=== PATIENT | female | born 1975 | race Caucasian/White ===

== ENCOUNTER 2016-08-02 09:00 | Emergency (ER) | payer BC ==
[2016-08-02 09:13] VITALS: BP 140/80; BMI 38.4
--- NOTE | 2016-08-02 10:18 | DR.EXTPAIN ---
HPI - Time seen Time seen: 10:16 - PCP Primary Care Physician: THOMAS EDWARDS - HPI Comment HPI Comment: no trauma - Complaint/Symptoms Chief Complaint:: RIGHT FOOT SWOLLEN Self Treatment fo Chief Complaint: NONE - Nurses notes reviewed Nurses Notes Review: Yes - Source History Provided: Patient - Mode of arrival Mode of Arrival: Ambulatory - Timing Onset of Chief Complaint: 07/31/16 - Context History of: None - Associated signs and symptoms Associated Signs and Symptoms: Pain, Swelling PMH - PMH Past Medical History: Yes Past Medical History: Diabetes Past Surgical History: Yes Surgical History: , Hysterectomy, Ortho Surgery Past Surgical History Comment: BACK AND KNEE, - Family History History of Family Medical Conditions: Yes Family Medical History: Diabetes Mellitus, Hypertension - Social History Alcohol Use: None Do you use any recreational Drugs:: No Lives With: Family Lives Where: Home - infectious screening In the last 2 months have you had wt loss of >10#?: YES Have you had fever, night sweats or hemotysis?: No Have you traveled outside the country in the last 6 months?: No Isolation: Standard ROS - Review of Systems Constitutional: No Symptoms Reported Eyes: No Symptoms Reported ENTM: No Symptoms Reported Respiratoy: No Symptoms Reported Cardiovascular: No Symptoms Reported Gastrointestinal/Abdominal: No Symptoms Reported Genitourinary: No Symptoms Reported Neurological: No Symptoms Reported Musculoskeletal: Foot (swelling) Integumentary: No Symptoms Reported Hematologic/Lymphatic: No Symptoms Reported Endocrine: No Symptoms Reported Psychiatric: No Symptoms Reported PE - Vital Signs Vitals: Temperature 98.3 F Pulse Rate 95 Respiratory Rate 14 Blood Pressure [Left Arm] 121/75 Blood Pressure [Right Arm] 116/71 Blood Pressure 140/80 O2 Sat by Pulse Oximetry 97 - General Limitations: No Limitations General Appearance: Alert, In No Apparent Distress - Head Head Exam: Normal Inspection - Eyes Eye exam: EOMI. negative: Scleral Icterus, Conjunctival Injection - ENT ENT Exam: Normal Exam, Normal Oropharynx - Neck Neck Exam: Normal Inspection, Full ROM, Trachea Midline - Respiratory Respiratory Exam: negative: Accessory Muscle Use, Prolonged Expiratory Phase - Extremities Extremities Exam: Full ROM, Tenderness (right foot), Edema (mild). negative: Normal Inspection - Lower Extremities Foot/Toe Exam: Tenderness, Swelling Neurovascular/Tendon Exam: Normal Capillary Refill. negative: Pulse Deficit, Motor Deficit - Neurological Neurological Exam: Alert, Oriented X3, CN II-XII Intact - Psychiatric Psychiatric Exam: Normal Mood - Skin Skin Exam: Intact, Normal Color ROR - Labs Reviewed Result Diagrams: 08/02/16 10:20 Laboratory: WBC 6.8 X10^3/uL (3.6-10.0) 08/02/16 10:20 RBC 4.57 X10^6/uL (3.5-5.4) 08/02/16 10:20 Hgb 13.0 g/dL (12.0-16.0) 08/02/16 10:20 Hct 39.0 % (36.0-47.0) 08/02/16 10:20 MCV 85.3 fL (80.0-100.0) 08/02/16 10:20 MCH 28.4 pg (27.0-34.0) 08/02/16 10:20 MCHC 33.3 g/dL (33.0-35.0) 08/02/16 10:20 RDW 14.4 % (11.6-16.5) 08/02/16 10:20 Plt Count 200 X10^3/uL (150.0-450.0) 08/02/16 10:20 MPV 9.1 fL (7.4-11.0) 08/02/16 10:20 Neut % 57.0 % (42.0-75.0) 08/02/16 10:20 Lymph % 32.9 % (21.0-51.0) 08/02/16 10:20 [place] % 5.2 % (0.0-13.0) 08/02/16 10:20 Eos % 3.9 % (0.9-2.9) H 08/02/16 10:20 Baso % 1.0 % (0.2-1.0) 08/02/16 10:20 Neut # 3.9 x10^3/uL (2.2-4.8) 08/02/16 10:20 Lymph # 2.2 X10^3/uL (1.3-2.9) 08/02/16 10:20 [place] # 0.4 x10^3/uL (0.3-0.8) 08/02/16 10:20 Eos # 0.3 x10^3/uL (0.0-0.2) H 08/02/16 10:20 Baso # 0.1 X10^3/uL (0.0-0.1) 08/02/16 10:20 Absolute Nucleated RBC 0.0 /100WBC 08/02/16 10:20 Uric Acid 4.4 mg/dL (2.6-6.0) 08/02/16 10:20 - Diagnosis Discharge Problem: Foot swelling - Discharge Plan Condition: Stable Prescriptions: Aspirin EC [ECOTRIN 325 MG *] 325 mg PO DAILY #30 tab - Follow ups/Referrals Follow ups/Referrals: JESSY EDWARDS [Primary Care Provider] - 3 days - Instructions
[2016-08-02 10:39] LABS: BASOPHILS # (AUTO) 0.1 X10^3/uL (0.0-0.1); EOSINOPHILS # (AUTO) 0.3 x10^3/uL (0.0-0.2); EOSINOPHILS % (AUTO) 3.9 % (0.9-2.9); LYMPHOCYTES # (AUTO) 2.2 X10^3/uL (1.3-2.9); LYMPHOCYTES % (AUTO) 32.9 % (21.0-51.0); MEAN CORPUSCULAR HEMOGLOBIN 28.4 pg (27.0-34.0); MEAN CORPUSCULAR HGB CONC 33.3 g/dL (33.0-35.0); MEAN CORPUSCULAR VOLUME 85.3 fL (80.0-100.0); MEAN PLATELET VOLUME 9.1 fL (7.4-11.0); MONOCYTES # (AUTO) 0.4 x10^3/uL (0.3-0.8); MONOCYTES % (AUTO) 5.2 % (0.0-13.0); NEUTROPHILS # (AUTO) 3.9 x10^3/uL (2.2-4.8); PLATELET COUNT 200 X10^3/uL (150.0-450.0); RED BLOOD COUNT 4.57 X10^6/uL (3.5-5.4); RED CELL DISTRIBUTION WIDTH 14.4 % (11.6-16.5); WHITE BLOOD COUNT 6.8 X10^3/uL (3.6-10.0)
== END 2016-08-02 11:30 | disposition home or self-care (01) ==
LOC: ER 09:21
DX: R22.41 Localized swelling, mass and lump, right lower limb (principal)
CPT/HCPCS: 36415; 84550; 85025; 99282

== ENCOUNTER → 2016-10-12 | Outpatient (CLI) | payer BC ==
--- NOTE | 2016-10-12 15:39 | RAD ---
HISTORY: Right hip pain that radiates down the leg. Study: Two-view right hip Comparison: CT abdomen and pelvis done September 02, 2015 Findings: There is apparent disc space narrowing L4-5 level. A single frontal view of the pelvis demonstrates the pelvic ring to be intact. No evidence for acut e cortical disruption or dislocation of the hip can be observed. Frog leg views of the hip fails to demonstrate evidence for fracture or significant joint abnormality. Impression: Normal right hip. Apparent disc space narrowing at L4-5. Reported By:
--- NOTE | 2016-10-12 15:42 | RAD ---
HISTORY: Lower extremity pain. Right hip pain that radiates down legs. Study: Five view lumbar spine Comparison: Lumbar spine series done March 12, 2014 and MRI scan of the lumbar spine done March 31, 2014. Findings: Fracture or subluxation is seen. There is multilevel spondylosis. Degenerative disc disease is again seen with vacuum discs at L4-5 and L5-S1. The disk space at L2-3 is also narrowed. Pedicles, transv erse processes and posterior elements are intact IMPRESSION: Multilevel degenerative disc disease, stable from prior studies. No fracture or subluxation is seen. Reported By:
== END ==
LOC: RAD 14:16
PROVIDERS: ATTEND Nurse Practitioner Family
DX: M79.604 Pain in right leg (principal); M51.36 Other intervertebral disc degeneration, lumbar region
CPT/HCPCS: 72110; 73501

== ENCOUNTER → 2016-10-31 | Outpatient (CLI) | payer BC | LOC: RT 13:45 | PROVIDERS: ATTEND Nurse Practitioner Family | DX: M79.604 Pain in right leg (principal) | CPT/HCPCS: 95909 ==

== ENCOUNTER → 2016-11-14 | Outpatient (CLI) | payer BC ==
--- NOTE | 2016-11-14 11:57 | MRI ---
HISTORY: Back pain, right radiculopathy Study: MRI lumbar spine with and without contrast Comparison: March 31, 2014 Technique: Multiplanar multi-sequence pre and post-contrast MRI of the lumbar spine was obtained. S agittal T1, sagittal T2, and stir weighted images, axial T1, and axial T2 images were obtained. Sagi ttal and axial post-contrast T1 weighted images were obtained. Findings: The lumbar spine demonstrates normal alignment with the expected signal characteristics of the bone marrow. No marrow enhancement or abnormal enhancing lesions are identified. The conus of the cord te rminates normally. T12 -- L1: No evidence for compressive disc disease. The neural foramina are patent. The joints are normal. L1 -- L2: No evidence for compressive disc disease. The neural foramina are patent. The joints are n ormal. L2 -- L3: Broad-based disk bulging effaces the thecal sac and contributes along with mild facet arth ropathy to mild lateral recess narrowing bilaterally. L3 -- L4: Broad-based disk bulging and an associated small central disc protrusion are present. Ther e is mild thecal sac effacement. However the neural foramina are patent and the joints are normal. L4 -- L5: There is a very large compressive central and rightward disc protrusion which contributes along with ligamentous hypertrophy and facet arthropathy to a severe spinal stenosis. The disk protr usion causes posterior displacement of the right S1 nerve root and is likely the cause of the patien t's right radiculopathy. Lateral recess and foraminal narrowing are present bilaterally more promine nt on the right than the left. L5 -- S1: There is disc degeneration with a focal central and leftward disc protrusion which effaces the thecal sac and causes posterior displacement of the left S1 nerve root. It also contributes to lateral recess and foraminal narrowing on the left. The right neural foramen is patent. The joints a re normal. IMPRESSION: As above Reported By:
== END ==
LOC: RAD 10:23
PROVIDERS: ATTEND Nurse Practitioner Family
DX: M79.604 Pain in right leg (principal); M51.26 Other intervertebral disc displacement, lumbar region
CPT/HCPCS: 72149

== ENCOUNTER → 2016-12-16 | Outpatient (CLI) | payer BC ==
[2016-12-16 09:45] LABS: ALANINE AMINOTRANSFERASE 32 Units/L (12-78); ALBUMIN 3.7 g/dL (3.4-5.0); ALKALINE PHOSPHATASE 42 Units/L (46-116); ASPARTATE AMINO TRANSFERASE 15 Units/L (15-37); BLOOD UREA NITROGEN 15 mg/dL (7-18); CALCIUM 8.4 mg/dL (8.5-10.1); CARBON DIOXIDE 26.7 mmol/L (21-32); CHLORIDE 107 mmol/L (98-107); CHOL/HDL RATIO 5.1 (0.0-5.0); CHOLESTEROL 133 mg/dL (0-200); COR NA(FOR HYPERGLY) 145 mmol/L (136-145); CREATININE 0.63 mg/dL (0.55-1.02); GLUCOSE 244 mg/dL (65-99); HDL CHOLESTEROL 26 mg/dL (40-60); SODIUM 142 mmol/L (136-145); TOTAL PROTEIN 6.9 g/dL (6.4-8.2); TRIGLYCERIDES 300 mg/dL (0-150); eGFR BLACK RACES > 60 (>60); eGFR NON BLACK RACES > 60 (>60)
[2016-12-16 09:46] LABS: BASOPHILS % (AUTO) 0.6 % (0.2-1.0); EOSINOPHILS # (AUTO) 0.1 x10^3/uL (0.0-0.2); EOSINOPHILS % (AUTO) 2.2 % (0.9-2.9); HEMATOCRIT 38.4 % (36.0-47.0); HEMOGLOBIN 12.9 g/dL (12.0-16.0); LYMPHOCYTES # (AUTO) 2.3 X10^3/uL (1.3-2.9); LYMPHOCYTES % (AUTO) 39.9 % (21.0-51.0); MEAN CORPUSCULAR HEMOGLOBIN 28.6 pg (27.0-34.0); MEAN CORPUSCULAR HGB CONC 33.7 g/dL (33.0-35.0); MEAN PLATELET VOLUME 9.5 fL (7.4-11.0); MONOCYTES # (AUTO) 0.4 x10^3/uL (0.3-0.8); MONOCYTES % (AUTO) 6.5 % (0.0-13.0); NEUTROPHILS # (AUTO) 2.9 x10^3/uL (2.2-4.8); NEUTROPHILS % (AUTO) 50.8 % (42.0-75.0); PLATELET COUNT 206 X10^3/uL (150.0-450.0); RED BLOOD COUNT 4.52 X10^6/uL (3.5-5.4); RED CELL DISTRIBUTION WIDTH 14.2 % (11.6-16.5); WHITE BLOOD COUNT 5.8 X10^3/uL (3.6-10.0)
[2016-12-16 10:26] LABS: HEMOGLOBIN A1C 8.8 % (4.5-6.2)
[2016-12-16 10:43] LABS: MICROALBUMIN,URINE 20.8 mg/L
[2016-12-16 10:45] LABS: CREATININE,URINE 133.87 mg/dL (29-226)
== END | disposition home or self-care (01) | DRG 642 ==
LOC: LAB 08:52
PROVIDERS: ATTEND Nurse Practitioner Family
DX: E78.4 Other hyperlipidemia (principal); I10 Essential (primary) hypertension; E11.40 Type 2 diabetes mellitus with diabetic neuropathy, unspecified; E11.65 Type 2 diabetes mellitus with hyperglycemia
CPT/HCPCS: 36415; 80053; 80061; 82043; 83036; 85025

== ENCOUNTER 2017-06-16 04:25 | Emergency (ER) | payer BC ==
[2017-06-16 04:35] VITALS: BP 117/69; BMI 37.2
[2017-06-16] MEDS ORDERED: TORADOL 30 MG VIAL IVP STA (05:00)
[2017-06-16] MEDS ORDERED: NS 1000 ML 1,000 ML IV SCH (05:00)
[2017-06-16] MEDS ORDERED: NS 1000 ML 1,000 ML ONE ×2 (05:01→07:40)
[2017-06-16] MEDS ORDERED: TYLENOL 500 MG TAB EXTRA STRENGTH PO STA (05:01)
[2017-06-16] MEDS ORDERED: TORADOL 30 MG VIAL ONE (05:04)
[2017-06-16] MEDS ORDERED: TYLENOL 500 MG TAB EXTRA STRENGTH PO ONE (05:05)
--- NOTE | 2017-06-16 05:05 | DR.GENAD ---
HPI - PCP Primary Care Physician: Juan NOVA - Complaint/Symptoms Chief Complaint Doctors Comments: Patient is complaining of a cold, cough, fever , aching all over for the past three days getting worst tonight. States she has been taking Thera Flu without improvement. Stats she is a diabetic and her glucose has been running high. she is taking insulin and pills. She denies chest pain but has been having SOB at times. She denies swelling of legs or feet. States she is a patient of Shira Nova. She denies dysuria or hematuria. Chief Complaint:: BODY ACHES, DIZZY, HURT ALL OVER, FEEL LIKE I HAVE A FEVER, CAN'T GET ENOUGH TO DRINK. NAUSEATED Self Treatment fo Chief Complaint: THERA-FLU LAST DOSE 0030AM - Nurses notes reviewed Nurses Notes Review: Yes - Source History Provided: Patient - Mode of Arrival Mode of Arrival: Ambulatory - Timing Onset of Chief Complaint: 06/13/17 Came on: Gradually - Duration Duration: Constant How lon Duration: Days - Location Location: aching all over - Severity Severity: Moderate - Modifying Factors Worsens:: nothing Improves:: nothing PMH - PMH Past Medical History: Yes Past Medical History: Diabetes Past Surgical History: Yes Surgical History: Appendectomy, Cholecystectomy, Hysterectomy, Ortho Surgery Past Surgical History Comment: BACK SURGERY - Family History History of Family Medical Conditions: Yes Family Medical History: Diabetes Mellitus, Heart Failure, Hypertension Family Medical History Comment: CVA - Social History Does patient currently use any type of tobacco product: No Have you used tobacco products in the last 12 months: No Type of Tobacco Use: None Does any household member use tobacco: No Alcohol Use: None Do you use any recreational Drugs:: No Lives With: Spouse Lives Where: Home - infectious screening In the last 2 months have you had wt loss of >10#?: NO Have you had fever, night sweats or hemotysis?: Yes Have you traveled outside the country in the last 6 months?: No Isolation: Standard ROS - Review of Systems Constitutional: No Symptoms Reported, Fever, Weakness, Fatigue, Loss of Appetite Eyes: No Symptoms Reported. negative: See HPI, Eye Pain, Blurred Vision, Tearing, Discharge, Photophobia, Diplopia, Other ENTM: No Symptoms Reported, Nose Discharge, Nose Congestion, Throat Pain Respiratoy: No Symptoms Reported, Non-Productive Cough, Short of Breath Cardiovascular: No Symptoms Reported. negative: See HPI, Chest Pain, Edema, Palpitations, Syncope, Cyanosis, Skin Mottling, Other Gastrointestinal/Abdominal: No Symptoms Reported. negative: See HPI, Abdominal Pain, Constipation, Diarrhea, Nausea, Vomiting, Food Intolerance, Other Genitourinary: No Symptoms Reported. negative: See HPI, Discharge, Dysuria, Frequency, Hematuria, Pain, Bleeding, Other Neurological: No Symptoms Reported, Weakness Musculoskeletal: No Symptoms Reported Integumentary: No Symptoms Reported. negative: See HPI, Change in Color, Change in Hair/Nails, Dryness, Lesions, Lumps, Rash, Itching, Wound, Bruises, Juandice, Other Hematologic/Lymphatic: No Symptoms Reported. negative: See HPI, Anemia, Blood Clots, Easy Bleeding, Easy Bruising, Swollen Glands, Lymphadenopathy, Other Endocrine: No Symptoms Reported Psychiatric: No Symptoms Reported PE - Vital Signs Vitals: Temperature 98.7 F Pulse Rate 133 Respiratory Rate 24 Blood Pressure [Left Arm] 121/75 Blood Pressure [Right Arm] 116/71 Blood Pressure 117/69 O2 Sat by Pulse Oximetry 97 - General Limitations: No Limitations General Appearance: Alert, In Distress (moderate) - Head Head Exam: Normal Inspection, Atraumatic, Normocephalic - Eyes Eye exam: Normal Appearance, PERRL, EOMI. negative: Scleral Icterus, Conjunctival Injection, Nystagmus, Miosis, Mydrasis, Periorbital Swelling, Periorbital Tenderness, Other - ENT ENT Exam: Normal Exam, Normal Oropharynx, Normal External Ear Exam, Mucous Membranes Moist, TM's Normal Bilaterally External Ear Exam: Normal External Inspection TM/Canal Exam: Bilateral Normal Nose Exam: Normal Nose Exam Mouth Exam: Normal Inspection Throat Exam: Normal Inspection - Neck Neck Exam: Normal Inspection, Full ROM, Trachea Midline - Chest Chest Inspection: Normal Inspection, Symmetric Chest Wall Rise - Respiratory Respiratory Exam: Normal Lung Sounds Bilat, Prolonged Expiratory Phase Respiratory Exam: Bilateral Clear to Auscultation, Left Rhonchi - Cardiovascular Cardiovascular Exam: Regular Rate, Normal Rhythm, Normal Heart Sounds - Extremities Extremities Exam: Normal Inspection, Full ROM, Tenderness - Back Back Exam: Normal Inspection, Full ROM. negative: Tenderness, (R) CVA Tenderness, (L) CVA Tenderness, Muscle Spasm, Paraspinal Tenderness, Vertebral Tenderness, Rashes, (R) Sciatic Notch Tenderness, (L) Sciatic Notch Tendern, (R ) Straight Leg Raise, (L) Straight Leg Raise, Other - Neurologic Neurological Exam: Alert, Oriented X3, CN II-XII Intact, Normal Gait, Reflexes Normal - Psychiatric Psychiatric Exam: Normal Affect, Normal Mood - Skin Skin Exam: Warm, Dry, Intact, Normal Color ROR - Labs Reviewed Laboratory Results Reviewed?: Yes (all labs and x-ray results reviewed and discussed with patient) Result Diagrams: 06/16/17 05:15 06/16/17 05:15 Laboratory: WBC 5.6 X10^3/uL (3.6-10.0) 06/16/17 05:15 RBC 3.89 X10^6/uL (3.5-5.4) 06/16/17 05:15 Hgb 11.2 g/dL (12.0-16.0) L 06/16/17 05:15 Hct 32.9 % (36.0-47.0) L 06/16/17 05:15 MCV 84.4 fL (80.0-100.0) 06/16/17 05:15 MCH 28.7 pg (27.0-34.0) 06/16/17 05:15 MCHC 34.0 g/dL (33.0-35.0) 06/16/17 05:15 RDW 14.3 % (11.6-16.5) 06/16/17 05:15 Plt Count 266 X10^3/uL (150.0-450.0) 06/16/17 05:15 MPV 13.2 fL (7.4-11.0) H 06/16/17 05:15 Neut % 75.3 % (42.0-75.0) H 06/16/17 05:15 Lymph % 15.5 % (21.0-51.0) L 06/16/17 05:15 [place] % 7.3 % (0.0-13.0) 06/16/17 05:15 Eos % 1.1 % (0.9-2.9) 06/16/17 05:15 Baso % 0.8 % (0.2-1.0) 06/16/17 05:15 Neut # 4.2 x10^3/uL (2.2-4.8) 06/16/17 05:15 Lymph # 0.9 X10^3/uL (1.3-2.9) L 06/16/17 05:15 [place] # 0.4 x10^3/uL (0.3-0.8) 06/16/17 05:15 Eos # 0.1 x10^3/uL (0.0-0.2) 06/16/17 05:15 Baso # 0.0 X10^3/uL (0.0-0.1) 06/16/17 05:15 Absolute Nucleated RBC 0.8 /100WBC 06/16/17 05:15 Sodium 129 mmol/L (136-145) L 06/16/17 05:15 Corrected Sodium 138 mmol/L (136-145) 06/16/17 05:15 Potassium 3.9 mmol/L (3.5-5.1) 06/16/17 05:15 Chloride 95 mmol/L (98-107) L 06/16/17 05:15 Carbon Dioxide 14.2 mmol/L (21-32) L* 06/16/17 05:15 Glucose 483 mg/dL (65-99) H 06/16/17 05:15 Influenza Type A (PCR) Positive (NEGATIVE) A 06/16/17 04:43 Influenza Type B (PCR) Negative (NEGATIVE) 06/16/17 04:43 S. pyogenes (TEM-PCR) Not detected (NOT DETECT) 06/16/17 04:43 - Other Results Comments: Lab called and states the patient's serum is to lipemic to run and they will have to send it off for testing. This was explained to patient and her family member. Glucose was 483. - XRAY XRAY Interpreted by: Radiologist (CXR: no acute cardiopulmonary changes noted) - Diagnosis Discharge Problem: Influenza A, Bronchitis, Hyperlipidemia, Dehydration Diabetes mellitus type 1, uncontrolled Qualifiers: Diabetes mellitus complication status: with hyperglycemia Qualified Code(s): E10.65 - Type 1 diabetes mellitus with hyperglycemia Sinusitis, acute Qualifiers: Sinusitis location: maxillary - Discharge Plan Disposition: 01 HOME, SELF-CARE Condition: Stable Prescriptions: Cephalexin [KEFLEX CAP 500 MG *] 500 mg PO TID #30 cap Cetirizine HCl [Zyrtec Tab 10 mg] 10 mg PO DAILY #30 tab Fluticasone Nasal [place] [FLONASE NASAL SPRAY *] 2 sprays ENOSTRIL DAILY #1 each Ibuprofen [MOTRIN TAB 800 MG *] 800 mg PO BID PRN #40 tab PRN Reason: Pain/Inflammation Oseltamivir Phosphate [Tamiflu] 75 mg PO BID #10 cap - Follow ups/Referrals Follow ups/Referrals: COLLIN NOVA [Primary Care Provider] - 3 days - Instructions Instructions: Influenza, Adult, [id number], Sinusitis, Adult, [id number], Dehydration, Adult, [id number], Type 2 Diabetes Mellitus, Adult, [id number]-[id number] , Acute Bronchitis
--- NOTE | 2017-06-16 05:49 | RAD ---
Examination: Chest, PA and lateral views History: Pneumonia Comparison 10/28/2015 Findings: Continued normal heart size with clear lungs and pleural spaces. Impression: No change; no acute chest findings. Reported By:
[2017-06-16 06:25] LABS: BASOPHILS % (AUTO) 0.8 % (0.2-1.0); EOSINOPHILS # (AUTO) 0.1 x10^3/uL (0.0-0.2); EOSINOPHILS % (AUTO) 1.1 % (0.9-2.9); HEMATOCRIT 32.9 % (36.0-47.0); HEMOGLOBIN 11.2 g/dL (12.0-16.0); LYMPHOCYTES # (AUTO) 0.9 X10^3/uL (1.3-2.9); LYMPHOCYTES % (AUTO) 15.5 % (21.0-51.0); MEAN CORPUSCULAR HEMOGLOBIN 28.7 pg (27.0-34.0); MEAN CORPUSCULAR VOLUME 84.4 fL (80.0-100.0); MEAN PLATELET VOLUME 13.2 fL (7.4-11.0); MONOCYTES # (AUTO) 0.4 x10^3/uL (0.3-0.8); MONOCYTES % (AUTO) 7.3 % (0.0-13.0); NEUTROPHILS # (AUTO) 4.2 x10^3/uL (2.2-4.8); NEUTROPHILS % (AUTO) 75.3 % (42.0-75.0); PLATELET COUNT 266 X10^3/uL (150.0-450.0); RED BLOOD COUNT 3.89 X10^6/uL (3.5-5.4); RED CELL DISTRIBUTION WIDTH 14.3 % (11.6-16.5); WHITE BLOOD COUNT 5.6 X10^3/uL (3.6-10.0)
[2017-06-16] MEDS ORDERED: HumuLIN R IV PRN (07:34)
[2017-06-16] MEDS ORDERED: HumuLIN R ONE (07:38)
[2017-06-16 07:39] LABS: SODIUM 129 mmol/L (136-145)
[2017-06-16] MEDS ORDERED: NS 500 ML IV 500 ML IV ONE (07:39)
[2017-06-16 07:40] LABS: CHLORIDE 95 mmol/L (98-107)
[2017-06-16] MEDS ORDERED: TAMIFLU PO STA (07:40)
[2017-06-16] MEDS ORDERED: BENADRYL CAP 50 MG PO ONE (07:40)
[2017-06-16 07:41] LABS: COR NA(FOR HYPERGLY) 138 mmol/L (136-145)
[2017-06-16] MEDS ORDERED: MOTRIN TAB 400 MG PO STA (07:41)
[2017-06-16] MEDS ORDERED: BENADRYL CAP/TAB 25 MG PO ONE (07:46)
[2017-06-16] MEDS ORDERED: MOTRIN TAB 400 MG PO ONE (07:46)
[2017-06-16 07:47] LABS: CARBON DIOXIDE 14.2 mmol/L (21-32)
[2017-06-16 07:51] LABS: BLOOD UREA NITROGEN 11 mg/dL (7-18)
[2017-06-16] MEDS ORDERED: TAMIFLU PO ONE (07:51)
[2017-06-16 07:53] LABS: CREATININE 0.54 mg/dL (0.55-1.02); eGFR BLACK RACES > 60 (>60); eGFR NON BLACK RACES > 60 (>60)
[2017-06-16 07:56] LABS: CALCIUM 8.3 mg/dL (8.5-10.1); COR CA(FOR HYPOALB) 9.1 mg/dL (8.5-10.1)
[2017-06-16 08:02] LABS: ALKALINE PHOSPHATASE 44 Units/L (46-116)
[2017-06-16 08:03] LABS: TOTAL PROTEIN 6.7 g/dL (6.4-8.2)
[2017-06-16 08:08] LABS: ASPARTATE AMINO TRANSFERASE 33.6 Units/L (15-37)
[2017-06-16 08:09] LABS: ALANINE AMINOTRANSFERASE 58.8 Units/L (12-78)
[2017-06-16] MEDS ORDERED: SNACK - Diabetic Appropriate PO SCH (20:00)
== END 2017-06-16 08:25 | disposition home or self-care (01) ==
LOC: ER 04:25
DX: J10.1 Influenza due to other identified influenza virus with other respiratory manifestations (principal); J40 Bronchitis, not specified as acute or chronic; E87.5 Hyperkalemia; E86.0 Dehydration; E10.65 Type 1 diabetes mellitus with hyperglycemia; J01.80 Other acute sinusitis
CPT/HCPCS: 36415; 71046; 80053; 85025; 87040; 87502; 87651; 96365; 96367; 96374; 96375; 99282; 99283; A4222; G9035; J1815; J1885

== ENCOUNTER 2023-09-23 06:25 | Observation (INO) ==
[2023-09-23] MEDS: NOZIN NASAL SANITIZER TP ONE (06:42)
[2023-09-23] MEDS: NS 1,000 ML IV 1,000 ML ONE (06:44)
[2023-09-23] MEDS: ANCEF VIAL 1 GRAM IVP ONE (06:45)
[2023-09-23] MEDS: NS 1,000 ML IV 1,000 ML IV ONE (06:56)
[2023-09-23] MEDS: NS 100 ML IV 100 ML ONE (07:18)
[2023-09-23] MEDS: ANCEF VIAL 1 GRAM ONE (07:18)
[2023-09-23] MEDS: VERSED ONE (07:26)
[2023-09-23] MEDS ORDERED: ULTANE GAS IN ONE (07:26)
[2023-09-23] MEDS: FENTANYL VIAL INJ 100 mcg ONE (07:26)
[2023-09-23] MEDS: ZEMURON 100 MG VIAL ONE (07:31)
[2023-09-23] MEDS: DIPRIVAN VIAL 20 ML ONE (07:31)
[2023-09-23] MEDS: PEPCID 20 MG VIAL ONE (07:31)
[2023-09-23] MEDS: ZOFRAN INJ 4 MG VIAL ONE (07:31)
[2023-09-23] MEDS: EPHEDRINE SULFATE INJ ONE (07:45)
[2023-09-23] MEDS: POLYMYXIN B SULFATE ONE (07:48)
[2023-09-23] MEDS: NEO-SYNEPHRINE INJ ONE (08:11)
[2023-09-23] MEDS: BRIDION ONE (08:13)
[2023-09-23] MEDS: MARCAINE 0.5% ONE (08:26)
[2023-09-23] MEDS ORDERED: BARHEMSYS INJ IVP PRN (08:57)
[2023-09-23] MEDS ORDERED: REGLAN INJ 10 MG VIAL IVP PRN (08:57)
[2023-09-23] MEDS ORDERED: BENADRYL INJ 50 MG VIAL IVP PRN (08:57)
[2023-09-23] MEDS ORDERED: ZOFRAN INJ 4 MG VIAL IVP PRN (08:57)
[2023-09-23] MEDS ORDERED: DILAUDID INJ IVP PRN (08:57)
[2023-09-23] MEDS: DILAUDID INJ IVP PRN (10:17)
[2023-09-23] MEDS: D5 1/2 NS 1,000 ML 1,000 ML IV SCH (10:18)
[2023-09-23 11:03] VITALS: BMI 26.9
[2023-09-23] MEDS: ZOFRAN INJ 4 MG VIAL IVP PRN (12:59)
[2023-09-23] MEDS: NovoLIN R (or HumuLIN R) SUBCUT PRN (20:59)
[2023-09-24 05:08] LABS: BASOPHILS % (AUTO) 0.6 % (0.2-1.0); EOSINOPHILS # (AUTO) 0.1 x10^3/uL (0.0-0.2); EOSINOPHILS % (AUTO) 1.6 % (0.9-2.9); HEMATOCRIT 33.5 % (36.0-47.0); HEMOGLOBIN 11.3 g/dL (12.0-16.0); LYMPHOCYTES # (AUTO) 1.7 X10^3/uL (1.3-2.9); LYMPHOCYTES % (AUTO) 20.8 % (21.0-51.0); MEAN CORPUSCULAR HEMOGLOBIN 27.9 pg (27.0-34.0); MEAN CORPUSCULAR HGB CONC 33.6 g/dL (33.0-35.0); MEAN CORPUSCULAR VOLUME 83.2 fL (80.0-100.0); MEAN PLATELET VOLUME 8.3 fL (7.4-11.0); MONOCYTES # (AUTO) 0.8 x10^3/uL (0.3-0.8); MONOCYTES % (AUTO) 9.5 % (0.0-13.0); NEUTROPHILS # (AUTO) 5.4 x10^3/uL (2.2-4.8); NEUTROPHILS % (AUTO) 67.5 % (42.0-75.0); PLATELET COUNT 243 X10^3/uL (150.0-450.0); RED BLOOD COUNT 4.03 X10^6/uL (3.5-5.4)
[2023-09-24 05:19] LABS: ALANINE AMINOTRANSFERASE 28 Units/L (12-78); ALKALINE PHOSPHATASE 74 Units/L (46-116); ASPARTATE AMINO TRANSFERASE 14 Units/L (15-37); BLOOD UREA NITROGEN 11 mg/dL (7-18); CALCIUM 8.3 mg/dL (8.5-10.1); CARBON DIOXIDE 33.6 mmol/L (21-32); CHLORIDE 101 mmol/L (98-107); COR CA(FOR HYPOALB) 9.1 mg/dL (8.5-10.1); COR NA(FOR HYPERGLY) 140 mmol/L (136-145); CREATININE 0.81 mg/dL (0.55-1.02); GLUCOSE 261 mg/dL (65-99); POTASSIUM 4.3 mmol/L (3.5-5.1); SODIUM 136 mmol/L (136-145); TOTAL PROTEIN 6.7 g/dL (6.4-8.2); eGFR NON BLACK RACES > 60 (>60)
[2023-09-24 08:40] VITALS: PULSE 103
[2023-09-24] MEDS: PERCOCET TAB 5/325 MG PO PRN (10:30)
[2023-09-24 12:09] VITALS: BP 143/83; RESP 20; TEMP 99.3; O2SAT 95
== END 2023-09-24 13:35 | disposition home or self-care (01) ==
LOC: MED/SURG 06:25 → SURG1 06:25
PROVIDERS: ADMIT Surgery; ATTEND Surgery
DX: K42.0 Umbilical hernia with obstruction, without gangrene; E11.65 Type 2 diabetes mellitus with hyperglycemia; K66.0 Peritoneal adhesions (postprocedural) (postinfection)

== ENCOUNTER 2024-02-20 21:40 | Inpatient (IN) ==
[2024-02-20 21:54] VITALS: BMI 30.2
[2024-02-20 22:55] LABS: BASOPHILS # (AUTO) 0.2 X10^3/uL (0.0-0.1); BASOPHILS % (AUTO) 0.8 % (0.2-1.0); EOSINOPHILS % (AUTO) 0.2 % (0.9-2.9); HEMATOCRIT 35.6 % (36.0-47.0); LYMPHOCYTES # (AUTO) 1.3 X10^3/uL (1.3-2.9); LYMPHOCYTES % (AUTO) 6.6 % (21.0-51.0); MEAN CORPUSCULAR HEMOGLOBIN 28.3 pg (27.0-34.0); MEAN CORPUSCULAR HGB CONC 33.6 g/dL (33.0-35.0); MEAN CORPUSCULAR VOLUME 84.3 fL (80.0-100.0); MONOCYTES # (AUTO) 0.9 x10^3/uL (0.3-0.8); MONOCYTES % (AUTO) 4.5 % (0.0-13.0); NEUTROPHILS % (AUTO) 87.9 % (42.0-75.0); PLATELET COUNT 303 X10^3/uL (150.0-450.0); RED BLOOD COUNT 4.23 X10^6/uL (3.5-5.4); RED CELL DISTRIBUTION WIDTH 13.4 % (11.6-16.5); WHITE BLOOD COUNT 19.4 X10^3/uL (3.6-10.0)
[2024-02-20 23:07] LABS: ALBUMIN 2.4 g/dL (3.4-5.0); CALCIUM 9.2 mg/dL (8.5-10.1); CARBON DIOXIDE 27.5 mmol/L (21-32); COR CA(FOR HYPOALB) 10.5 mg/dL (8.5-10.1); CREATININE 1.36 mg/dL (0.55-1.02); TOTAL PROTEIN 8.1 g/dL (6.4-8.2)
--- NOTE | 2024-02-20 23:16 | DR.FEVERAD ---
HPI Time seen Time Seen by Provider: 02/20/24 23:15 PCP Primary Care Physician: Camila Huntley HPI Comment HPI Comment: Patient with history of type 2 diabetes mellitus comes in complaining of nausea vomiting chills shortness of breath since last Saturday. Patient was seen on by her PCP and stated she was given antibiotics and steroids. Patient states she is still not improving so she came into the emergency room. Patient denies chest pain, fever, diarrhea or constipation Complaints/Symptoms Chief Complaint:: Pt In ED With Complaints Of N/V, Chills,SOB Since Last Saturday. Seen Her PCP On and Tested Negative For Flu and Covid But Was Given Antibiotics and Steroids Symptoms Have Persisted and PT Not Feeling Any Better. COVID-19 Coronavirus risk:travel/contact w/high risk person: No Has patient experienced Coronavirus symptoms: Yes Coronavirus symptoms experienced: Fever and Shortness of Breath Source History Provided: Patient Mode of Arrival Mode of Arrival: Ambulatory Timing Onset of Chief Complaint: 02/20/24 PMH PMH Past Medical History: Yes Past Medical History: Diabetes Past Surgical History: Yes Surgical History: Appendectomy, , Cholecystectomy and Hysterectomy Family History History of Family Medical Conditions: Yes Family Medical History: Diabetes Mellitus and Hypertension Social History Do you use any recreational Drugs:: No Lives With: Family Lives Where: Home Travel Risk Coronavirus risk:travel/contact w/high risk person: No Has patient experienced Coronavirus symptoms: Yes Coronavirus symptoms experienced: Fever and Shortness of Breath Infectious screening Have you traveled outside the country in the last 6 months?: No Isolation: Standard ROS Review of Systems Constitutional: See HPI and Chills Eyes: No Symptoms Reported ENTM: No Symptoms Reported Respiratoy: See HPI Cardiovascular: No Symptoms Reported Gastrointestinal/Abdominal: See HPI Genitourinary: No Symptoms Reported Neurological: No Symptoms Reported Musculoskeletal: No Symptoms Reported Integumentary: No Symptoms Reported Hematologic/Lymphatic: No Symptoms Reported Endocrine: No Symptoms Reported Psychiatric: No Symptoms Reported All Other Systems: Reviewed and Negative PE Vital Signs Vitals: Vital Signs Pulse Rate 77 Pulse Rate 83 Pulse Rate 79 Pulse Rate 84 Pulse Rate 81 Pulse Rate 79 Pulse Rate 79 Pulse Rate 80 Pulse Rate 84 Pulse Rate 86 Pulse Rate 85 Pulse Rate 85 Pulse Rate 86 Pulse Rate 91 Pulse Rate 90 Pulse Rate 90 Pulse Rate 93 Pulse Rate 102 Pulse Rate 96 Pulse Rate 100 Pulse Rate 97 Pulse Rate 102 Pulse Rate 104 Pulse Rate 105 Pulse Rate 105 Pulse Rate 105 Pulse Rate 109 Pulse Rate 109 Pulse Rate 108 Respiratory Rate 34 Respiratory Rate 24 Respiratory Rate 24 Respiratory Rate 18 Respiratory Rate 18 Respiratory Rate 27 Respiratory Rate 18 Respiratory Rate 28 Respiratory Rate 25 Respiratory Rate 26 Respiratory Rate 20 Respiratory Rate 30 Respiratory Rate 30 Respiratory Rate 21 Blood Pressure 102/62 Blood Pressure 110/67 Blood Pressure 92/55 Blood Pressure 92/55 Blood Pressure 92/55 Blood Pressure 110/59 Blood Pressure 104/57 Blood Pressure 104/57 Blood Pressure 101/51 Blood Pressure 86/50 Blood Pressure 111/64 Blood Pressure 111/64 Blood Pressure 110/58 Blood Pressure 114/54 Blood Pressure 138/69 Blood Pressure 124/59 Blood Pressure 124/59 O2 Sat by Pulse Oximetry 98 O2 Sat by Pulse Oximetry 99 O2 Sat by Pulse Oximetry 99 O2 Sat by Pulse Oximetry 99 O2 Sat by Pulse Oximetry 99 O2 Sat by Pulse Oximetry 99 O2 Sat by Pulse Oximetry 99 O2 Sat by Pulse Oximetry 100 O2 Sat by Pulse Oximetry 99 O2 Sat by Pulse Oximetry 100 O2 Sat by Pulse Oximetry 99 O2 Sat by Pulse Oximetry 99 O2 Sat by Pulse Oximetry 99 O2 Sat by Pulse Oximetry 99 O2 Sat by Pulse Oximetry 98 O2 Sat by Pulse Oximetry 98 O2 Sat by Pulse Oximetry 99 O2 Sat by Pulse Oximetry 99 O2 Sat by Pulse Oximetry 99 O2 Sat by Pulse Oximetry 98 O2 Sat by Pulse Oximetry 99 O2 Sat by Pulse Oximetry 93 O2 Sat by Pulse Oximetry 93 O2 Sat by Pulse Oximetry 96 O2 Sat by Pulse Oximetry 95 O2 Sat by Pulse Oximetry 94 O2 Sat by Pulse Oximetry 94 O2 Sat by Pulse Oximetry 92 O2 Sat by Pulse Oximetry 96 COURSE Treatment Treatment: Anion gap closed with fluid hydration and insulin. Potassium i mproved. Patient feeling better. Patient received Levaquin. Reevaluation 1st: Improved Consultation Called: 05:45 Consultation Comments: Discussed case with Dr. Simon. Patient still needs a little more hydration therefore he is agreeable to admit patient and continue to observe for improvement ROR Labs Reviewed 02/20/24 22:40 02/21/24 04:57 Laboratory: WBC 19.4 X10^3/uL (3.6-10.0) H 02/20/24 22:40 RBC 4.23 X10^6/uL (3.5-5.4) 02/20/24 22:40 Hgb 12.0 g/dL (12.0-16.0) 02/20/24 22:40 Hct 35.6 % (36.0-47.0) L 02/20/24 22:40 MCV 84.3 fL (80.0-100.0) 02/20/24 22:40 MCH 28.3 pg (27.0-34.0) 02/20/24 22:40 MCHC 33.6 g/dL (33.0-35.0) 02/20/24 22:40 RDW 13.4 % (11.6-16.5) 02/20/24 22:40 Plt Count 303 X10^3/uL (150.0-450.0) 02/20/24 22:40 MPV 9.0 fL (7.4-11.0) 02/20/24 22:40 Neut % (Auto) 87.9 % (42.0-75.0) H 02/20/24 22:40 Lymph % (Auto) 6.6 % (21.0-51.0) L 02/20/24 22:40 [place] % (Auto) 4.5 % (0.0-13.0) 02/20/24 22:40 Eos % (Auto) 0.2 % (0.9-2.9) L 02/20/24 22:40 Baso % (Auto) 0.8 % (0.2-1.0) 02/20/24 22:40 Neut # (Auto) 17.0 x10^3/uL (2.2-4.8) H 02/20/24 22:40 Lymph # (Auto) 1.3 X10^3/uL (1.3-2.9) 02/20/24 22:40 [place] # (Auto) 0.9 x10^3/uL (0.3-0.8) H 02/20/24 22:40 Eos # (Auto) 0.0 x10^3/uL (0.0-0.2) 02/20/24 22:40 Baso # (Auto) 0.2 X10^3/uL (0.0-0.1) H 02/20/24 22:40 Absolute Nucleated RBC 0.0 /100WBC 02/20/24 22:40 Sample Site Lr 02/21/24 02:28 ABG pH 7.470 (7.35-7.45) H 02/21/24 02:28 ABG pCO2 34.0 mmHg (35.0-45.0) L 02/21/24 02:28 ABG pO2 112.0 mmHg (80.0-100.0) H 02/21/24 02:28 ABG HCO3 24.7 mmol/L (22-26) 02/21/24 02:28 ABG O2 Saturation 99.0 % (90-100) 02/21/24 02:28 ABG Base Excess 1.4 mmol/L (-2.0-2.0) 02/21/24 02:28 King Test Pos 02/21/24 02:28 A-a Gradient 45.0 mmHg 02/21/24 02:28 FiO2 28.0 02/21/24 02:28 Blood Gas Comments 2lnc. pavan well 02/21/24 02:28 Sodium 129 mmol/L (136-145) L 02/21/24 04:57 Corrected Sodium 135 mmol/L (136-145) L 02/21/24 04:57 Potassium 4.3 mmol/L (3.5-5.1) 02/21/24 04:57 Chloride 99 mmol/L (98-107) 02/21/24 04:57 Carbon Dioxide 27.1 mmol/L (21-32) 02/21/24 04:57 BUN 16 mg/dL (7-18) 02/21/24 04:57 Creatinine 1.05 mg/dL (0.55-1.02) H 02/21/24 04:57 Est GFR (MDRD) Af Amer > 60 (>60) 02/21/24 04:57 Est GFR (MDRD) Non-Af 59 (>60) 02/21/24 04:57 Glucose 346 mg/dL (65-99) H 02/21/24 04:57 POC Glucose (mg/dL) 438 mg/dL (65-99) H 02/21/24 01:04 Hemoglobin A1c 9.9 % 02/20/24 22:40 Lactic Acid 1.2 mmol/L (0.4-2.0) 02/20/24 23:26 Calcium 7.6 mg/dL (8.5-10.1) L 02/21/24 04:57 Corrected Calcium 9.7 mg/dL (8.5-10.1) 02/21/24 02:48 Magnesium 1.5 mg/dL (2.0-2.9) L 02/21/24 02:48 Total Bilirubin 0.40 mg/dL (0.2-1.0) 02/21/24 02:48 AST 11 Units/L (15-37) L 02/21/24 02:48 ALT 18 Units/L (12-78) 02/21/24 02:48 Alkaline Phosphatase 124 Units/L (46-116) H 02/21/24 02:48 C-Reactive Protein 331.80 mg/L (0-3.0) H 02/20/24 22:40 Total Protein 7.0 g/dL (6.4-8.2) 02/21/24 02:48 Albumin 1.9 g/dL (3.4-5.0) L 02/21/24 02:48 Globulin 5.1 g/dL (2.5-4.5) H 02/21/24 02:48 Albumin/Globulin Ratio 0.4 Ratio (1.1-2.1) L 02/21/24 02:48 Amylase 18 Units/L (25-115) L 02/20/24 22:40 Lipase 26 Units/L (16-77) 02/20/24 22:40 Specimen Type Clean catch urine 02/20/24 23:40 Urine Color Yellow (YELLOW) 02/20/24 23:40 Urine Appearance Cloudy (CLEAR) 02/20/24 23:40 Urine pH 6.0 (5.0 - 8.0) 02/20/24 23:40 Ur Specific [place] 1.015 (1.000-1.030) 02/20/24 23:40 Urine Protein 3+ (NEGATIVE) 02/20/24 23:40 Urine Glucose (UA) 4+ (NEGATIVE) 02/20/24 23:40 Urine Ketones Negative (NEGATIVE) 02/20/24 23:40 Urine Blood 4+ (NEGATIVE) 02/20/24 23:40 Urine Nitrite Negative (NEGATIVE) 02/20/24 23:40 Urine Bilirubin Negative (NEGATIVE) 02/20/24 23:40 Urine Urobilinogen Normal (NORMAL) 02/20/24 23:40 Ur Leukocyte Esterase 1+ (NEGATIVE) 02/20/24 23:40 Urine RBC 10-20 /HPF (0-3) A 02/20/24 23:40 Urine WBC Tntc /HPF (0-5) A 02/20/24 23:40 Ur Squamous Epith Cells Few /HPF (NEGATIVE) 02/20/24 23:40 Amorphous Sediment 2+ /HPF (NEGATIVE) 02/20/24 23:40 Urine Bacteria 2+ /HPF (NEGATIVE) 02/20/24 23:40 Coarse Granular Casts Few /HPF (NEGATIVE) 02/20/24 23:40 Urine Mucus Few /HPF (NEGATIVE) 02/20/24 23:40 Ur Culture Indicated? Yes/culture set up 02/20/24 23:40 Acetone, Semi-Quant Negative (NEGATIVE) 02/20/24 22:40 SARS-CoV-2 (PCR) Negative (NEGATIVE) 02/20/24 22:30 Influenza Type A (PCR) Negative (NEGATIVE) 02/20/24 22:30 Influenza Type B (PCR) Negative (NEGATIVE) 02/20/24 22:30 RSV (PCR) Negative (NEGATIVE) 02/20/24 22:30 Opioid Opioid Risk Tool Age (Meño box if 16-45): No History of Preadolescent Sexual Abuse: No Total: 0 Total Score Risk Category: Low Risk Copyright: Geovanny SCHMIDT predicting aberrant behaviors Discharge Plan Diagnosis Discharge Problem: Hyperosmolar hyperglycemic state (HHS), UTI (urinary tract infection), Diabetes mellitus type 2 with complications, uncontrolled Discharge Plan Patient Disposition: 09 ADMITTED INPATIENT Condition: Stable Orders to Discharge Patient Discharge Orders: Transfer (Routine); Ordered 02/21/24 Ordered By: Freddy Zamorano
[2024-02-20] MEDS: NS 1,000 ML IV 1,000 ML IV ONE (23:35)
[2024-02-20] MEDS: ZOFRAN INJ 4 MG VIAL IVP ONE (23:36)
[2024-02-20 23:58] LABS: AMYLASE 18 Units/L (25-115); LIPASE 26 Units/L (16-77)
[2024-02-21 00:19] LABS: BILIRUBIN,URINE NEGATIVE (NEGATIVE); BLOOD/HEMOGLOBIN,URINE 4+ (NEGATIVE); GLUCOSE, URINE 4+ (NEGATIVE); KETONES,URINE NEGATIVE (NEGATIVE); LEUKOCYTE ESTERASE ,URINE 1+ (NEGATIVE); NITRITES,URINE NEGATIVE (NEGATIVE); PROTEIN,URINE 3+ (NEGATIVE); UROBILINOGEN,URINE NORMAL (NORMAL)
[2024-02-21 00:29] LABS: APPEARANCE,URINE CLOUDY (CLEAR); COLOR,URINE YELLOW (YELLOW)
[2024-02-21 00:30] LABS: BACTERIA,URINE 2+ /HPF (NEGATIVE); COARSE GRANULAR CASTS,URINE FEW /HPF (NEGATIVE); SQUAMOUS EPITHELIAL CELL,UR FEW /HPF (NEGATIVE)
[2024-02-21] MEDS: LEVAQUIN PREMIX IV 750 MG 750 MG/150 ML BAG IV ONE (00:41)
[2024-02-21] MEDS: NS 1,000 ML IV 1,000 ML IV ONE ×2 (01:08→04:01)
[2024-02-21] MEDS: NovoLIN R (or HumuLIN R) SUBCUT PRN ×2 (01:15→12:01)
[2024-02-21] MEDS: MORPHINE SULFATE INJ 2 MG INJ IVP ONE (01:16)
--- NOTE | 2024-02-21 02:07 | CT ---
PROCEDURE: CT Abdomen and Pelvis without IV Contrast.HISTORY: Pt In ED With Complaints Of N/V, Chills,SOB Since Last Saturday.; DM SX: APPY, CSECTION, MELCHOR, HYST .TECHNIQUE: Axial images were performed through the abdomen and pelvis without the administration of IV contrast with multiplanar reformations . Oral contrast was notadministered . Dose reduction techniques including Automated Exposure Control (AEC) and adjustment of mA and kV were utilized ..COMPARISON: None.TECHNICAL QUALITY: Satisfactory.FINDINGS:Clear lung bases.Splenomegaly at 14.3 cm. Liver, adrenals, and pancreas show no abnormality.Mild hydronephrosis left kidney may represent UPJ stenosis with no stones normal-sized ureter. No urinary tract stones identified remainder of the urinary tract.Previous cholecystectomy.No ascites or pneumoperitoneum.Normal aorta.No lymphadenopathy.No bowel obstruction or inflammation and normal appendix.Pelvis shows no masses or free fluid with previous hysterectomy. Normal urinary bladder.No acute bony abnormality.IMPRESSION:1. 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 Splenomegaly.3. No other significant abnormality identified.THIS IS AN ELECTRONICALLY VERIFIED FINAL [id number]/21/2024 2:03 AM - Electronically signed by Aaron Yeager MD
[2024-02-21] MEDS: K-RIDER 10 MEQ/100 ML WATER 10 MEQ/100 ML BAG IV ONE (02:08)
--- NOTE | 2024-02-21 02:41 | EKG ---
Test Reason : dka, tachycardia Blood Pressure : */* mmHG Vent. Rate : 95 BPM Atrial Rate : 95 BPM P-R Int : 132 ms QRS Dur : 82 ms QT Int : 334 ms P-R-T Axes : 58 -2 46 degrees QTc Int : 419 ms Normal sinus rhythm Cannot rule out Anterior infarct (cited on or before 18-SEP-2023) Abnormal ECG When compared with ECG of 18-SEP-2023 11:56, Questionable change in initial forces of Septal leads Confirmed by Galen Bowie MD ([id number]) on 02/24/2024 8:14:26 AM Referred By: Confirmed By: Galen Bowie MD
[2024-02-21 02:48] LABS: ABG BASE EXCESS 1.4 mmol/L (-2.0-2.0); ABG HCO3 24.7 mmol/L (22-26)
[2024-02-21 02:50] LABS: ABG ALLEN TEST POS
[2024-02-21] MEDS: NS + KCL 20 MEQ/L 1,000 ML IV ONE ×2 (02:51→05:39)
[2024-02-21 03:06] LABS: ALBUMIN 1.9 g/dL (3.4-5.0); CARBON DIOXIDE 25.2 mmol/L (21-32); COR CA(FOR HYPOALB) 9.7 mg/dL (8.5-10.1); CREATININE 1.24 mg/dL (0.55-1.02); MAGNESIUM 1.5 mg/dL (2.0-2.9); POTASSIUM 3.9 mmol/L (3.5-5.1)
[2024-02-21] MEDS: MAGNESIUM SULFATE 1 GRAM/100 mL PREMIX 1 G/100 ML BAG IV SCH (03:50)
[2024-02-21 05:08] LABS: BLOOD UREA NITROGEN 16 mg/dL (7-18); CALCIUM 7.6 mg/dL (8.5-10.1); CARBON DIOXIDE 27.1 mmol/L (21-32); CHLORIDE 99 mmol/L (98-107); COR NA(FOR HYPERGLY) 135 mmol/L (136-145); CREATININE 1.05 mg/dL (0.55-1.02); GLUCOSE 346 mg/dL (65-99); POTASSIUM 4.3 mmol/L (3.5-5.1); SODIUM 129 mmol/L (136-145); eGFR NON BLACK RACES 59 (>60)
[2024-02-21] MEDS ORDERED: MYXREDLIN 100 UNIT/100 ML BAG 100 UNIT/100 ML PLAST..BAG IV PRN (05:52)
[2024-02-21] MEDS ORDERED: NS + KCL 40 MEQ/L 1,000 ML IV PRN (05:52)
[2024-02-21] MEDS ORDERED: MAGNESIUM SULFATE 1 GRAM/100 mL PREMIX 1 G/100 ML BAG IV PRN ×2 (05:52)
[2024-02-21] MEDS ORDERED: D50W ABBOJECT SYR IV PRN (05:52)
[2024-02-21] MEDS: NS 1,000 ML IV 1,000 ML IV SCH (05:59)
--- NOTE | 2024-02-21 05:59 | RAD ---
EXAM:CHEST, 1 VIEWHISTORY:UPPER RESPIRATORY INFECTION; COUGH ; DM SX: APPY, MELCHOR, HYST, CSECTIONCOMPARISON:09/18/2023FINDINGS:Th e lungs are clear. No pneumothorax or effusion.Heart size is normal.The bones are unremarkable.EKG leads are noted.IMPRESSION:1. No significant abnormalityTHIS IS AN ELECTRONICALLY VERIFIED FINAL [id number]/21/2024 5:55 AM - Electronically signed by Orlin Batista MD
[2024-02-21 06:35] LABS: BASOPHILS # (AUTO) 0.1 X10^3/uL (0.0-0.1); BASOPHILS % (AUTO) 0.3 % (0.2-1.0); EOSINOPHILS % (AUTO) 0.1 % (0.9-2.9); HEMATOCRIT 30.4 % (36.0-47.0); HEMOGLOBIN 9.9 g/dL (12.0-16.0); LYMPHOCYTES # (AUTO) 1.9 X10^3/uL (1.3-2.9); LYMPHOCYTES % (AUTO) 10.9 % (21.0-51.0); MEAN CORPUSCULAR HEMOGLOBIN 27.4 pg (27.0-34.0); MEAN CORPUSCULAR HGB CONC 32.7 g/dL (33.0-35.0); MEAN CORPUSCULAR VOLUME 83.9 fL (80.0-100.0); MEAN PLATELET VOLUME 8.9 fL (7.4-11.0); MONOCYTES % (AUTO) 5.9 % (0.0-13.0); NEUTROPHILS # (AUTO) 14.7 x10^3/uL (2.2-4.8); NEUTROPHILS % (AUTO) 82.8 % (42.0-75.0); PLATELET COUNT 268 X10^3/uL (150.0-450.0); RED BLOOD COUNT 3.62 X10^6/uL (3.5-5.4); RED CELL DISTRIBUTION WIDTH 13.5 % (11.6-16.5); WHITE BLOOD COUNT 17.7 X10^3/uL (3.6-10.0)
[2024-02-21 06:48] LABS: ALANINE AMINOTRANSFERASE 18 Units/L (12-78); ALBUMIN 1.9 g/dL (3.4-5.0); ALKALINE PHOSPHATASE 121 Units/L (46-116); ASPARTATE AMINO TRANSFERASE 11 Units/L (15-37); BLOOD UREA NITROGEN 16 mg/dL (7-18); CALCIUM 8.2 mg/dL (8.5-10.1); CARBON DIOXIDE 25.8 mmol/L (21-32); CHLORIDE 98 mmol/L (98-107); COR CA(FOR HYPOALB) 9.9 mg/dL (8.5-10.1); COR NA(FOR HYPERGLY) 135 mmol/L (136-145); CREATININE 1.21 mg/dL (0.55-1.02); GLUCOSE 302 mg/dL (65-99); MAGNESIUM 2.3 mg/dL (2.0-2.9); PHOSPHORUS 2.4 mg/dL (2.6-4.7); POTASSIUM 4.3 mmol/L (3.5-5.1); SODIUM 130 mmol/L (136-145); eGFR NON BLACK RACES 50 (>60)
[2024-02-21] MEDS: TYLENOL 325 MG TAB PO PRN (07:46)
[2024-02-21] MEDS ORDERED: LEVAQUIN TAB 750 MG PO SCH (09:00)
[2024-02-21] MEDS: FLONASE NASAL SPRAY ENOSTRIL SCH (10:03)
[2024-02-21] MEDS: COLACE CAP 100 MG PO SCH (10:03)
[2024-02-21] MEDS: LEVAQUIN PREMIX IV 500 MG 500 MG/100 ML BAG IV SCH (10:03)
[2024-02-21] MEDS: ULTRAM PO PRN (10:04)
[2024-02-21] MEDS: MILK OF MAGNESIA PO SCH (10:04)
[2024-02-21] MEDS: ACTOS PO SCH (10:12)
[2024-02-21] MEDS: GLUCOPHAGE XR 24-HR PO SCH (10:12)
[2024-02-21] MEDS: ZOFRAN INJ 4 MG VIAL IVP PRN (13:18)
[2024-02-21] MEDS ORDERED: SNACK - Diabetic Appropriate PO SCH (20:00)
[2024-02-21] MEDS: SNACK - Diabetic Appropriate PO SCH (20:15)
[2024-02-21] MEDS: PHENERGAN INJ 25 MG IM PRN (22:28)
[2024-02-22 05:17] LABS: BASOPHILS % (AUTO) 0.1 % (0.2-1.0); EOSINOPHILS % (AUTO) 0.3 % (0.9-2.9); HEMATOCRIT 29.6 % (36.0-47.0); HEMOGLOBIN 9.9 g/dL (12.0-16.0); LYMPHOCYTES # (AUTO) 1.7 X10^3/uL (1.3-2.9); LYMPHOCYTES % (AUTO) 12.1 % (21.0-51.0); MEAN CORPUSCULAR HEMOGLOBIN 28.2 pg (27.0-34.0); MEAN CORPUSCULAR HGB CONC 33.5 g/dL (33.0-35.0); MEAN CORPUSCULAR VOLUME 84.1 fL (80.0-100.0); MEAN PLATELET VOLUME 9.1 fL (7.4-11.0); MONOCYTES # (AUTO) 0.8 x10^3/uL (0.3-0.8); NEUTROPHILS # (AUTO) 11.3 x10^3/uL (2.2-4.8); NEUTROPHILS % (AUTO) 81.5 % (42.0-75.0); PLATELET COUNT 232 X10^3/uL (150.0-450.0); RED BLOOD COUNT 3.52 X10^6/uL (3.5-5.4); RED CELL DISTRIBUTION WIDTH 13.5 % (11.6-16.5); WHITE BLOOD COUNT 13.8 X10^3/uL (3.6-10.0)
[2024-02-22 05:30] LABS: ALANINE AMINOTRANSFERASE 16 Units/L (12-78); ALBUMIN 1.7 g/dL (3.4-5.0); ALKALINE PHOSPHATASE 119 Units/L (46-116); ASPARTATE AMINO TRANSFERASE 12 Units/L (15-37); BLOOD UREA NITROGEN 12 mg/dL (7-18); CALCIUM 8.5 mg/dL (8.5-10.1); CARBON DIOXIDE 27.3 mmol/L (21-32); CHLORIDE 101 mmol/L (98-107); COR CA(FOR HYPOALB) 10.3 mg/dL (8.5-10.1); COR NA(FOR HYPERGLY) 137 mmol/L (136-145); CREATININE 0.89 mg/dL (0.55-1.02); GLUCOSE 255 mg/dL (65-99); PHOSPHORUS 2.7 mg/dL (2.6-4.7); POTASSIUM 4.3 mmol/L (3.5-5.1); SODIUM 133 mmol/L (136-145); TOTAL PROTEIN 6.5 g/dL (6.4-8.2); eGFR NON BLACK RACES > 60 (>60)
[2024-02-22] MEDS: ZESTRIL TAB 10 MG PO SCH (08:48)
[2024-02-22] MEDS: ZOFRAN INJ 4 MG VIAL ONE (10:19)
[2024-02-22] MEDS: LEVAQUIN PREMIX IV 750 MG 750 MG/150 ML BAG IV ONE (10:19)
[2024-02-22] MEDS: MAGNESIUM SULFATE 1 GRAM/100 mL PREMIX 1 G/100 ML BAG IV ONE (10:20)
[2024-02-22] MEDS: NovoLIN R (or HumuLIN R) ONE (10:20)
[2024-02-22] MEDS: K-RIDER 10 MEQ/100 ML WATER 10 MEQ/100 ML BAG IV ONE (10:20)
[2024-02-22] MEDS: NS 1,000 ML IV 1,000 ML ONE (10:24)
[2024-02-22] MEDS: BUTT CREAM (COMPOUND) TOP PRN (21:57)
[2024-02-23 05:26] LABS: BASOPHILS % (AUTO) 0.3 % (0.2-1.0); EOSINOPHILS # (AUTO) 0.1 x10^3/uL (0.0-0.2); EOSINOPHILS % (AUTO) 0.5 % (0.9-2.9); HEMATOCRIT 28.3 % (36.0-47.0); HEMOGLOBIN 9.5 g/dL (12.0-16.0); LYMPHOCYTES # (AUTO) 1.4 X10^3/uL (1.3-2.9); LYMPHOCYTES % (AUTO) 13.7 % (21.0-51.0); MEAN CORPUSCULAR HEMOGLOBIN 28.2 pg (27.0-34.0); MEAN CORPUSCULAR HGB CONC 33.5 g/dL (33.0-35.0); MEAN CORPUSCULAR VOLUME 84.1 fL (80.0-100.0); MEAN PLATELET VOLUME 8.8 fL (7.4-11.0); MONOCYTES # (AUTO) 0.6 x10^3/uL (0.3-0.8); MONOCYTES % (AUTO) 5.7 % (0.0-13.0); NEUTROPHILS # (AUTO) 8.2 x10^3/uL (2.2-4.8); NEUTROPHILS % (AUTO) 79.8 % (42.0-75.0); PLATELET COUNT 277 X10^3/uL (150.0-450.0); RED BLOOD COUNT 3.37 X10^6/uL (3.5-5.4); RED CELL DISTRIBUTION WIDTH 13.6 % (11.6-16.5); WHITE BLOOD COUNT 10.3 X10^3/uL (3.6-10.0)
[2024-02-23 06:04] LABS: ALANINE AMINOTRANSFERASE 14 Units/L (12-78); ALBUMIN 1.7 g/dL (3.4-5.0); ALKALINE PHOSPHATASE 101 Units/L (46-116); ASPARTATE AMINO TRANSFERASE 11 Units/L (15-37); BLOOD UREA NITROGEN 9 mg/dL (7-18); CALCIUM 8.2 mg/dL (8.5-10.1); CARBON DIOXIDE 26.3 mmol/L (21-32); CHLORIDE 100 mmol/L (98-107); COR NA(FOR HYPERGLY) 135 mmol/L (136-145); CREATININE 0.83 mg/dL (0.55-1.02); GLUCOSE 169 mg/dL (65-99); MAGNESIUM 1.6 mg/dL (2.0-2.9); PHOSPHORUS 2.9 mg/dL (2.6-4.7); POTASSIUM 3.6 mmol/L (3.5-5.1); SODIUM 133 mmol/L (136-145); TOTAL PROTEIN 6.6 g/dL (6.4-8.2); eGFR NON BLACK RACES > 60 (>60)
[2024-02-23] MEDS ORDERED: CONSULT PHARMACY - POTASSIUM & MAGNESIUM XX SCH (07:00)
[2024-02-23] MEDS: K-DUR TAB 20 MEQ PO SCH (08:47)
[2024-02-23] MEDS: MAG-OX TAB PO SCH (08:47)
[2024-02-23] MEDS: MAGNESIUM SULFATE 1 GRAM/100 mL PREMIX 1 G/100 ML BAG IV SCH (10:15)
[2024-02-23] MEDS ORDERED: COLACE CAP 100 MG PO PRN (18:55)
[2024-02-23] MEDS ORDERED: MILK OF MAGNESIA PO PRN (18:55)
[2024-02-23] MEDS: GLUCOPHAGE XR 24-HR PO SCH (20:34)
[2024-02-24 05:16] LABS: BASOPHILS % (AUTO) 0.3 % (0.2-1.0); EOSINOPHILS # (AUTO) 0.1 x10^3/uL (0.0-0.2); EOSINOPHILS % (AUTO) 0.6 % (0.9-2.9); HEMATOCRIT 26.2 % (36.0-47.0); LYMPHOCYTES # (AUTO) 1.5 X10^3/uL (1.3-2.9); LYMPHOCYTES % (AUTO) 15.7 % (21.0-51.0); MEAN CORPUSCULAR HGB CONC 34.2 g/dL (33.0-35.0); MEAN CORPUSCULAR VOLUME 84.7 fL (80.0-100.0); MEAN PLATELET VOLUME 8.7 fL (7.4-11.0); MONOCYTES # (AUTO) 0.6 x10^3/uL (0.3-0.8); MONOCYTES % (AUTO) 6.1 % (0.0-13.0); NEUTROPHILS # (AUTO) 7.6 x10^3/uL (2.2-4.8); NEUTROPHILS % (AUTO) 77.3 % (42.0-75.0); PLATELET COUNT 259 X10^3/uL (150.0-450.0); RED CELL DISTRIBUTION WIDTH 13.5 % (11.6-16.5); WHITE BLOOD COUNT 9.8 X10^3/uL (3.6-10.0)
[2024-02-24 05:38] LABS: ALANINE AMINOTRANSFERASE 16 Units/L (12-78); ALBUMIN 1.6 g/dL (3.4-5.0); ALKALINE PHOSPHATASE 95 Units/L (46-116); ASPARTATE AMINO TRANSFERASE 17 Units/L (15-37); BLOOD UREA NITROGEN 8 mg/dL (7-18); CARBON DIOXIDE 29.6 mmol/L (21-32); CHLORIDE 98 mmol/L (98-107); COR CA(FOR HYPOALB) 9.9 mg/dL (8.5-10.1); COR NA(FOR HYPERGLY) 137 mmol/L (136-145); CREATININE 0.82 mg/dL (0.55-1.02); GLUCOSE 288 mg/dL (65-99); MAGNESIUM 1.8 mg/dL (2.0-2.9); POTASSIUM 4.4 mmol/L (3.5-5.1); SODIUM 132 mmol/L (136-145); TOTAL PROTEIN 6.2 g/dL (6.4-8.2); eGFR NON BLACK RACES > 60 (>60)
--- NOTE | 2024-02-24 08:32 | RAD ---
EXAM:CHEST, PA/LAT ADULTHISTORY:hypoxia;COMPARISON:02/21/20 24FINDINGS:The lungs are not well inflated. As a result, there are hypoventilatory changes in the bases.Linear atelectasis in the mid left lung is present. This finding is so small as to probably be clinically insignificant.No evidence for pneumonia or pleural effusion.Heart size is normal.The bones are unremarkable.EKG leads are noted.IMPRESSION:1. Minimal left lung atelectasisTHIS IS AN ELECTRONICALLY VERIFIED FINAL [id number]/24/2024 8:28 AM - Electronically signed by Orlin Batista MD
[2024-02-24] MEDS: ZESTRIL TAB 10 MG PO SCH (08:33)
[2024-02-24] MEDS: AMPICILLIN VIAL 1 GRAM 1 G in NS 100 ML IV 100 ML IV SCH (10:47)
[2024-02-24] MEDS: JANUVIA PO SCH (11:11)
[2024-02-24] MEDS: TYGACIL 50 MG VIAL 100 MG in NS 100 ML IV 100 ML IV ONE (11:11)
[2024-02-24] MEDS: MAGNESIUM SULFATE 1 GRAM/100 mL PREMIX 1 G/100 ML BAG IV SCH (11:11)
[2024-02-24] MEDS: TYGACIL 50 MG VIAL 50 MG in NS 100 ML IV 100 ML IV SCH (20:20)
[2024-02-24] MEDS: SNACK - Diabetic Appropriate PO SCH (20:22)
[2024-02-25] MEDS: CONSULT PHARMACY - POTASSIUM & MAGNESIUM XX SCH (06:42)
[2024-02-25 06:46] LABS: BASOPHILS % (AUTO) 0.3 % (0.2-1.0); EOSINOPHILS # (AUTO) 0.1 x10^3/uL (0.0-0.2); EOSINOPHILS % (AUTO) 0.4 % (0.9-2.9); HEMATOCRIT 28.8 % (36.0-47.0); HEMOGLOBIN 9.6 g/dL (12.0-16.0); LYMPHOCYTES # (AUTO) 1.1 X10^3/uL (1.3-2.9); LYMPHOCYTES % (AUTO) 9.2 % (21.0-51.0); MEAN CORPUSCULAR HEMOGLOBIN 28.2 pg (27.0-34.0); MEAN CORPUSCULAR HGB CONC 33.3 g/dL (33.0-35.0); MEAN CORPUSCULAR VOLUME 84.8 fL (80.0-100.0); MEAN PLATELET VOLUME 7.9 fL (7.4-11.0); MONOCYTES # (AUTO) 0.6 x10^3/uL (0.3-0.8); MONOCYTES % (AUTO) 5.2 % (0.0-13.0); NEUTROPHILS # (AUTO) 10.3 x10^3/uL (2.2-4.8); NEUTROPHILS % (AUTO) 84.9 % (42.0-75.0); PLATELET COUNT 292 X10^3/uL (150.0-450.0); RED CELL DISTRIBUTION WIDTH 13.8 % (11.6-16.5); WHITE BLOOD COUNT 12.2 X10^3/uL (3.6-10.0)
[2024-02-25 06:58] LABS: ALANINE AMINOTRANSFERASE 10 Units/L (12-78); ALBUMIN 1.8 g/dL (3.4-5.0); ALKALINE PHOSPHATASE 92 Units/L (46-116); ASPARTATE AMINO TRANSFERASE 13 Units/L (15-37); BLOOD UREA NITROGEN 17 mg/dL (7-18); CALCIUM 8.2 mg/dL (8.5-10.1); CARBON DIOXIDE 27.1 mmol/L (21-32); CHLORIDE 99 mmol/L (98-107); COR NA(FOR HYPERGLY) 133 mmol/L (136-145); GLUCOSE 142 mg/dL (65-99); MAGNESIUM 1.8 mg/dL (2.0-2.9); POTASSIUM 4.2 mmol/L (3.5-5.1); SODIUM 132 mmol/L (136-145); TOTAL PROTEIN 6.4 g/dL (6.4-8.2); eGFR NON BLACK RACES > 60 (>60)
[2024-02-25] MEDS: MAG-OX TAB PO SCH (08:45)
[2024-02-25] MEDS: OMNIPAQUE 350 mg/mL 100 mL BTL 100 ML ONE (10:07)
--- NOTE | 2024-02-25 10:17 | CT ---
EXAM:CTA chest with contrast for pulmonary embolusHISTORY:Unexplained hypoxiaTECHNIQUE:Axial postcontrast images with coronal and sagittal reformats. Three-dimensional maximum intensity projection images were obtained and evaluated. Dose reduction techniques were used with MA/kv adjusted for body size.COMPARISON:NoneFINDINGS:There is no evidence for acute pulmonary thromboembolic disease in the main pulmonary artery, right and left main pulmonary arteries, and lobar branches. Evaluation more peripherally is not possible due to suboptimal bolus timing. Examination of the mediastinum demonstrated no evidence for mediastinal masses, enlarged mediastinal or hilar adenopathy. There are some nonenlarged retrocaval pretracheal and AP window lymph nodes of uncertain etiology. There also prominent but not grossly enlarged bilateral hilar lymph nodes present. Enlarged subcarinal lymph nodes are identified. Etiology of this lymphadenopathy could be reactive, infectious, or neoplastic in origin. PET-CT may be required to exclude neoplasm. Bilateral small pleural effusions are present. No chest wall or axillary abnormality is identified. Examination of those portions of the upper abdominal organs visualized demonstrated partially visualized hepatosplenomegaly. No visualized abdominal adenopathy identified. No chest wall or axillary abnormality identified. Diffuse thoracic spondylosis is present. Examination of the lung cotter demonstrated no evidence for pulmonary masses, alveolar infiltrates, areas of consolidation, peribronchial thickening, or bronchiectasis. There is some bibasilar atelectatic change underlying the small pleural effusions. There also appear to be some Alba's B-lines and very subtle perihilar ground-glass changes suggestive of congestive heart failure.IMPRESSION:No evidence for acute pulmonary thromboembolic diseaseNo acute alveolar pulmonary infiltrates or areas of consolidationAbnormal mediastinal lymphadenopathy consisting of enlarged subcarinal lymph nodes, prominent but nonenlarged retrocaval pretracheal and AP window lymph nodes and prominent bilateral hilar lymphadenopathy. Etiology could be neoplastic as in lymphoproliferative disorder or metastatic disease, reactive, or infectious. PET-CT may be required for further evaluation to exclude a neoplastic origin.Findings suggestive of mild congestive heart failureBilateral small pleural effusions with some adjacent bibasilar atelectatic lung changes.Partially visualized hepatosplenomegalyTHIS IS AN ELECTRONICALLY VERIFIED FINAL [id number]/25/2024 10:14 AM - Electronically signed by Abraham Ugalde MD
[2024-02-25] MEDS: LASIX PO STA (12:28)
[2024-02-25] MEDS: PEPCID TAB 20 MG PO SCH (13:53)
[2024-02-26 00:28] VITALS: O2SAT 97
[2024-02-26 04:53] LABS: BASOPHILS # (AUTO) 0.1 X10^3/uL (0.0-0.1); BASOPHILS % (AUTO) 0.5 % (0.2-1.0); EOSINOPHILS # (AUTO) 0.1 x10^3/uL (0.0-0.2); EOSINOPHILS % (AUTO) 0.6 % (0.9-2.9); HEMATOCRIT 28.2 % (36.0-47.0); HEMOGLOBIN 9.6 g/dL (12.0-16.0); LYMPHOCYTES # (AUTO) 1.4 X10^3/uL (1.3-2.9); LYMPHOCYTES % (AUTO) 13.1 % (21.0-51.0); MEAN CORPUSCULAR HEMOGLOBIN 28.2 pg (27.0-34.0); MEAN CORPUSCULAR HGB CONC 33.9 g/dL (33.0-35.0); MEAN CORPUSCULAR VOLUME 83.3 fL (80.0-100.0); MEAN PLATELET VOLUME 7.9 fL (7.4-11.0); MONOCYTES # (AUTO) 0.8 x10^3/uL (0.3-0.8); MONOCYTES % (AUTO) 7.5 % (0.0-13.0); NEUTROPHILS # (AUTO) 8.2 x10^3/uL (2.2-4.8); NEUTROPHILS % (AUTO) 78.3 % (42.0-75.0); PLATELET COUNT 291 X10^3/uL (150.0-450.0); RED BLOOD COUNT 3.39 X10^6/uL (3.5-5.4); RED CELL DISTRIBUTION WIDTH 13.7 % (11.6-16.5); WHITE BLOOD COUNT 10.5 X10^3/uL (3.6-10.0)
[2024-02-26 05:08] LABS: ALANINE AMINOTRANSFERASE 13 Units/L (12-78); ALBUMIN 1.8 g/dL (3.4-5.0); ALKALINE PHOSPHATASE 86 Units/L (46-116); ASPARTATE AMINO TRANSFERASE 12 Units/L (15-37); BLOOD UREA NITROGEN 20 mg/dL (7-18); CALCIUM 8.4 mg/dL (8.5-10.1); CARBON DIOXIDE 33.7 mmol/L (21-32); CHLORIDE 98 mmol/L (98-107); COR CA(FOR HYPOALB) 10.2 mg/dL (8.5-10.1); COR NA(FOR HYPERGLY) 138 mmol/L (136-145); CREATININE 0.91 mg/dL (0.55-1.02); GLUCOSE 165 mg/dL (65-99); MAGNESIUM 1.5 mg/dL (2.0-2.9); POTASSIUM 3.5 mmol/L (3.5-5.1); SODIUM 136 mmol/L (136-145); TOTAL PROTEIN 6.1 g/dL (6.4-8.2); eGFR NON BLACK RACES > 60 (>60)
[2024-02-26] MEDS ORDERED: CONSULT PHARMACY - POTASSIUM & MAGNESIUM XX SCH (06:00)
[2024-02-26 07:52] VITALS: RESP 19
[2024-02-26] MEDS: [UNRECOGNIZED DRUG - OTHER] IV ONE (08:42)
[2024-02-26] MEDS: MAGNESIUM SULFATE IV ONE (08:42)
[2024-02-26] MEDS: NS IV ONE (08:42)
[2024-02-26] MEDS ORDERED: MAG-OX TAB PO SCH (09:00)
[2024-02-26] MEDS ORDERED: K-DUR TAB 20 MEQ PO SCH (09:00)
[2024-02-26] MEDS ORDERED: MAGNESIUM SULFATE 1 GRAM/100 mL PREMIX 1 G/100 ML BAG IV SCH (09:26)
[2024-02-26 16:11] VITALS: BP 126/64; PULSE 80; TEMP 98.5
[2024-02-27] MEDS ORDERED: LASIX PO SCH (09:00)
== END 2024-02-26 18:47 | disposition home or self-care (01) | DRG 638 ==
LOC: ICU 21:40 → ER 21:40 → OBSVTOIN 02-21 05:52 → ICU 02-21 06:10 → MED/SURG 02-25 16:48
PROVIDERS: ADMIT Obstetrics & Gynecology Obstetrics; ATTEND Obstetrics & Gynecology Obstetrics
DX: E11.65 Type 2 diabetes mellitus with hyperglycemia; Z16.29 Resistance to other single specified antibiotic; R79.82 Elevated C-reactive protein (CRP); I50.9 Heart failure, unspecified; Z20.822 Contact with and (suspected) exposure to COVID-19; R06.02 Shortness of breath; E86.0 Dehydration; R00.0 Tachycardia, unspecified; B96.89 Other specified bacterial agents as the cause of diseases classified elsewhere; R94.31 Abnormal electrocardiogram [ECG] [EKG]; E11.00 Type 2 diabetes mellitus with hyperosmolarity without nonketotic hyperglycemic-hyperosmolar coma (NKHHC); R51.9 Headache, unspecified; Z16.19 Resistance to other specified beta lactam antibiotics; Z16.11 Resistance to penicillins; N39.0 Urinary tract infection, site not specified

== ENCOUNTER 2024-12-07 16:09 | Inpatient (IN) ==
[2024-12-07] MEDS ORDERED: XYLOCAINE 2 % (PLAIN) ONE ×3 (16:10→16:15)
[2024-12-07] MEDS ORDERED: PRECEDEX INJ VIAL ONE ×3 (16:10→16:15)
[2024-12-07] MEDS ORDERED: KETAMINE HCL ONE ×3 (16:10→16:15)
[2024-12-07] MEDS ORDERED: PHARMACY CONSULT - VANCOMYCIN XX SCH (17:00)
[2024-12-07] MEDS ORDERED: GLUCOPHAGE PO SCH (17:00)
[2024-12-07 17:25] LABS: MEAN PLATELET VOLUME 8.3 fL (7.4-11.0); RED CELL DISTRIBUTION WIDTH 13.7 % (11.6-16.5)
[2024-12-07 17:27] VITALS: BMI 31.4
[2024-12-07 17:40] LABS: COR CA(FOR HYPOALB) 10.0 mg/dL (8.5-10.1); COR NA(FOR HYPERGLY) 138 mmol/L (136-145); CREATININE 1.08 mg/dL (0.55-1.02); eGFR NON BLACK RACES 57 (>60)
[2024-12-07] MEDS: LR 1,000 ML IV 1,000 ML IV SCH (17:59)
[2024-12-07] MEDS: ZESTRIL TAB 40 MG PO SCH (17:59)
[2024-12-07] MEDS: ACTOS PO SCH (17:59)
[2024-12-07] MEDS: VANCOMYCIN IV *PREMIX 1 G/200 ML BAG 1 G/200 ML PIGGYBACK IV SCH (17:59)
[2024-12-07] MEDS: GLUCOPHAGE PO SCH (18:00)
[2024-12-07 20:03] LABS: BLOOD/HEMOGLOBIN,URINE 4+ (NEGATIVE); LEUKOCYTE ESTERASE ,URINE NEGATIVE (NEGATIVE); NITRITES,URINE NEGATIVE (NEGATIVE)
[2024-12-07 20:08] LABS: APPEARANCE,URINE CLEAR (CLEAR)
[2024-12-07 20:09] LABS: SQUAMOUS EPITHELIAL CELL,UR RARE /HPF (NEGATIVE)
[2024-12-07] MEDS: ZOSYN VIAL 3.375 GRAMS 3.375 G in NS 100 ML IV 100 ML IV SCH (20:19)
[2024-12-07] MEDS: TYLENOL 325 MG TAB PO PRN (20:20)
[2024-12-07] MEDS: NS 250 ML IV 25 ML IV PRN (20:20)
[2024-12-07] MEDS: NovoLIN R (or HumuLIN R) SUBCUT PRN (20:21)
[2024-12-07] MEDS: SNACK - Diabetic Appropriate PO SCH (20:29)
[2024-12-08] MEDS: NORCO 5/325 MG TAB PO PRN (01:07)
[2024-12-08] MEDS: GLUCOPHAGE ONE (04:14)
[2024-12-08] MEDS ORDERED: GLUCOPHAGE ONE ×2 (04:45→08:02)
[2024-12-08 04:56] LABS: MEAN PLATELET VOLUME 8.4 fL (7.4-11.0); RED CELL DISTRIBUTION WIDTH 13.5 % (11.6-16.5)
[2024-12-08 05:08] LABS: COR CA(FOR HYPOALB) 10.0 mg/dL (8.5-10.1); COR NA(FOR HYPERGLY) 138.0 mmol/L (136-145); CREATININE 1.33 mg/dL (0.55-1.02); eGFR NON BLACK RACES 45.0 (>60)
--- NOTE | 2024-12-08 08:34 | DR.CONSULT ---
CONSULT Consultation for Day of: Date: 12/08/24 Chief Complaint Chief Complaint: Infection to the right great toe Allergies Allergies Allergy/AdvReac Type Severity Reaction Status Date / Time No Known Drug Allergies Allergy Verified 02/21/24 06:19 History of Present Illness History of Present Illness: Patient is a 49 y/o female with PMHx of uncontrolled diabetes and HLD. Patient states that she noticed her foot was swollen about a month ago and noticed that it was significantly worsening over the past three weeks. She said she has wounds but does not take very good care of herself. She states that she noticed it started to worsen in smell and described it as a carcass smell about a week ago. She denies managing her diabetes well and states that her A1C is about 14. She also did not know what her glucose is on a normal basis, and does not check her glucose levels. She denies smoking. She states she started to feel nauseous in the hospital but denies fevers, chills, vomiting or diarrhea at this time. Past Medical History Past Medical History: Diabetes Past Surgical History Surgical History: Appendectomy, , Cholecystectomy and Hysterectomy Family History Family Medical History: Diabetes Mellitus and Hypertension Social History Does patient currently use any type of tobacco product: No Does any household member use tobacco: No Alcohol Use: None Drug Use: None Medications Home Medications: No Known Drug Allergies Allergy (Verified 02/21/24 06:19) CONTINUE taking the following medications atorvastatin 10 mg tablet 10 mg PO QDAY 12/07/24 [History] insulin lispro 100 unit/mL subcutaneous pen See Rx Instructions .Route .COMPLEX PRN 12/07/24 [History] metformin 500 mg tablet,extended release 24 hr 500 mg PO BID 12/07/24 [History] omeprazole 40 mg capsule,delayed release 40 mg PO QDAY 12/07/24 [History] Physical Exam Vital Signs: Vital Signs Temperature 98.4 F Temperature 99.4 F Pulse Rate [Right Radial] 98 Pulse Rate [Right Radial] 85 Respiratory Rate 18 Respiratory Rate 18 Respiratory Rate 19 Respiratory Rate 20 Blood Pressure [Right Arm] 132/63 Blood Pressure [Right Arm] 115/61 O2 Sat by Pulse Oximetry 96 O2 Sat by Pulse Oximetry 97 Derm: To the right hallux, there is an open ulceration appreciated to the medial plantar aspect that appears infected. On examination this wound probes to bone, is purulent on manual compression, has significant malodor, has significant periwound erythema with fluctuance. The right hallux is significantly edematous with white dusky discoloration appreciated to the toe. No crepitus is appreciated. Surrounding dorsal skin just proximal to the right first mtpj region, localized cellulitis is appreciated and is warm to touch, the most proximal margin has been marked with inedible ink. Vascular: DP and PT nonpalpable MSK: ROM WNL to ankle joint, STJ, midtarsal join and digits of 1-5. first mtpj rom is guarded due to pain Neuro: sensory protective threshold is diminished 2/2 to neuropathy in b/l feet Plan (1) Osteomyelitis of great toe of right foot: Status: Acute Plan: Arterial doppler ordered- patients DP and PT nonpalpable- will consult vascular if abnormal results MRI ordered for concern for osteomyelitis of right foot and surgical planning Patient can have a diet today 12/08/24, will be NPO at midnight for OR tomorrow Patient will undergo right hallux amputation pending MRI results Further recommendations pending surgical intervention (2) Diabetes mellitus type 2 with complications, uncontrolled: Status: Acute Plan: Discussed diabetic management and concern for healing as A1C and blood glucose levels are significantly high, patient states she has a good support system at home but does not take care of herself Did discuss that she follow up with her primary care physician in regards to her diabetic management
--- NOTE | 2024-12-08 09:44 | VAS ---
EXAMINATION: LOWER EXT ARTERIAL-UNILATERAL HISTORY: blood flow to foot (RLE); CELLULITIS,FEVER, RT FOOT INFECTION . COMPARISON STUDY: None. TECHNIQUE: Pulsed wave Doppler and color Doppler imaging of the right lower extremity arterial system was performed. FINDINGS: PSV (cm/sec) waveform Right [employer] 91 triphasic Right SFA Prox. 101 triphasic Right SFA mid 134 triphasic Right SFA distal 138 triphasic Right Pop art 127 triphasic Right DPA 99 triphasic Right [employer] 141 monophasic Soft tissue edema is noted. IMPRESSION: No sonographic evidence for hemodynamically significant stenosis. Mild inflow disease in the posterior tibial artery THIS IS AN ELECTRONICALLY VERIFIED FINAL REPORT 12/08/2024 9:41 AM - Electronically signed by Harmeet Santoro MD
[2024-12-08] MEDS: MILK OF MAGNESIA PO PRN (11:53)
[2024-12-08] MEDS: COLACE CAP 100 MG PO PRN (11:53)
--- NOTE | 2024-12-08 13:51 | MRI ---
EXAM: EXT LOWER JOINT W/O CON HISTORY: RIGHT FOOT PAIN/ OSTEOMYELITIS ; COMPARISON: 12/07/2024 TECHNIQUE: Multipla judit, multisequence MRI of the right foot obtained without IV contrast. FINDINGS: Skin ulcer in the 1st digit with surrounding edema in the 1st digit and medial forefoot. No convincing drainable fluid collection or abscess. Edema and T1 signal loss in the 1st proximal and distal phalanges. The remaining visualized marrow signal is unremarkable. The visualized flexor and extensor mechanisms appear intact. IMPRESSION: Findings consistent with osteomyelitis in the 1st proximal and distal phalanges. Surrounding edema without convincing drainable fluid collection or abscess. THIS IS AN ELECTRONICALLY VERIFIED FINAL REPORT 12/08/2024 1:47 PM - Electronically signed by Abraham Ugalde MD
[2024-12-08] MEDS: ZOFRAN INJ 4 MG VIAL IVP PRN (17:03)
[2024-12-08] MEDS: MORPHINE SULFATE INJ 2 MG INJ IVP PRN (19:57)
[2024-12-09 05:34] LABS: MEAN PLATELET VOLUME 8.1 fL (7.4-11.0); RED CELL DISTRIBUTION WIDTH 13.8 % (11.6-16.5)
[2024-12-09 05:52] LABS: COR CA(FOR HYPOALB) 10.0 mg/dL (8.5-10.1); COR NA(FOR HYPERGLY) 139 mmol/L (136-145); CREATININE 1.02 mg/dL (0.55-1.02); eGFR NON BLACK RACES > 60 (>60)
[2024-12-09] MEDS: HIBICLENS WASH EXT ONE (06:39)
--- NOTE | 2024-12-09 07:06 | RAD ---
EXAMINATION: CHEST, 1 VIEW HISTORY: Surg clearance-cellulitis, foot infection ; . COMPARISON STUDY: 02/23/2024 TECHNIQUE: A single view of the chest was obtained. FINDINGS: Poor inspiration. Heart size is normal. No acute infiltrates. There is no pneumothorax. Hilar and mediastinal structures and bony structures are unremarkable. . IMPRESSION: No acute process in the chest. THIS IS AN ELECTRONICALLY VERIFIED FINAL REPORT 12/09/2024 7:03 AM - Electronically signed by Harmeet Santoro MD
--- NOTE | 2024-12-09 07:24 | RAD ---
EXAMINATION: FOOT, RIGHT HISTORY: right foot pain; . COMPARISON STUDY: NONE TECHNIQUE: Three views of the right foot were obtained. FINDINGS: There is normal mineralization and osteoarthritic change along the 1st MTP joint, interphalangeal joint of the great toe and D IP joints of the toes. Films are underpenetrated.. There is no fracture or dislocation. There is no radiopaque foreign body. Soft tissue swelling over the dorsum of the foot. No bony destructive changes or subcutaneous emphysema. No osteolytic or osteoblastic lesions are noted. Plantar spur and spurring along the insertion of the Achilles tendon IMPRESSION: NO ACUTE BONY PROCESS. THIS IS AN ELECTRONICALLY VERIFIED FINAL REPORT 12/09/2024 7:20 AM - Electronically signed by Harmeet Santoro MD
[2024-12-09] MEDS: VANCOMYCIN IV *PREMIX 1 G/200 ML BAG 1 G/200 ML PIGGYBACK IV SCH (08:50)
[2024-12-09] MEDS: NS 100 ML IV 100 ML with VENOFER 100 MG IV ONE (08:50)
[2024-12-09] MEDS: PROCRIT or EPOGEN VIAL 10,000 UNITS SC ONE (08:54)
[2024-12-09] MEDS: ZOFRAN INJ 4 MG VIAL ONE (09:20)
[2024-12-09] MEDS: VERSED ONE (09:20)
[2024-12-09] MEDS: DIPRIVAN VIAL 20 ML ONE (09:21)
[2024-12-09] MEDS: NS 1,000 ML IV 1,000 ML ONE (09:27)
[2024-12-09] MEDS: ZOFRAN INJ 4 MG VIAL IVP PRN (09:30)
[2024-12-09] MEDS: NS 1,000 ML IV 300 ML IV PRN (09:30)
[2024-12-09] MEDS: NS 100 ML IV 100 ML ONE (09:35)
[2024-12-09] MEDS: ANCEF VIAL 1 GRAM ONE (09:35)
[2024-12-09] MEDS: ANCEF VIAL 1 GRAM IV PRN (09:40)
[2024-12-09] MEDS: MARCAINE 0.25% INJ ONE (09:41)
--- NOTE | 2024-12-09 09:45 | DR.PREOPN ---
Pre-op Note Pre-Op Diagnosis: osteo of right hallux, abscess of right forefoot, osteo of left 2nd digit Planned Procedure: amputation with cement right , partial amputation of left 2nd toe. Laboratory and Diagnositics 12/09/24 05:08 12/09/24 05:08 Summary: I have reviewed the procedure, it benefits and potential risks and complications with the patient and his/her questions have been answered. Patient desires to proceed with procedure. patient has + probe to bone on the left 2nd toe distal phalanx and right hallux distal and prox phalanx. Consent signed and on chart. it is medically necssary to do partial toe amp and leave open on left and full hallux amputation with bead placement on right due to infection and severity. will need closure later in week. tamika works at [employer] [employer] in [place] and is on feet daily. patient will be very limited in the next couple weeks after procedure. infection severe on right LE and still risk of needing more proximal amputation.
--- NOTE | 2024-12-09 09:52 | DR.CONSULT ---
CONSULT Consultation for Day of: Date: 12/08/24 Chief Complaint Chief Complaint: Redness and swelling right foot with osteomyelitis of right great toe Allergies Allergies Allergy/AdvReac Type Severity Reaction Status Date / Time No Known Drug Allergies Allergy Verified 02/21/24 06:19 History of Present Illness History of Present Illness: This is a she is to be scheduled for amputation of the right great toe. She will continue IV antibiotics. I was asked to see her in consultation for possible vascular intervention. She has had lower extremity arterial Doppler study showing 9-year-old female with diabetes poorly controlled, hemoglobin A1c is 11.6. Presented with redness and swelling of approximately 1 month of her right foot. She has been evaluated with MRI showing evidence of osteomyelitis of the right great toe significant redness and swelling of the right forefoot. Doppler study shows triphasic flow of the right foot with the exception of the posterior tibial artery which is monophasic. Past Medical History Past Medical History: Diabetes Past Surgical History Surgical History: Appendectomy, , Cholecystectomy and Hysterectomy Family History Family Medical History: Diabetes Mellitus and Hypertension Social History Does patient currently use any type of tobacco product: No Does any household member use tobacco: No Alcohol Use: None Drug Use: None Medications Home Medications: No Known Drug Allergies Allergy (Verified 02/21/24 06:19) CONTINUE taking the following medications atorvastatin 10 mg tablet 10 mg PO QDAY 12/07/24 [History] insulin lispro 100 unit/mL subcutaneous pen See Rx Instructions .Route .COMPLEX PRN 12/07/24 [History] metformin 500 mg tablet,extended release 24 hr 500 mg PO BID 12/07/24 [History] omeprazole 40 mg capsule,delayed release 40 mg PO QDAY 12/07/24 [History] Review of Systems Constitutional: See HPI Eyes: No Symptoms Reported ENT: No Symptoms Reported Respiratory: No Symptoms Reported Cardiovascular: No Symptoms Reported Gastrointestinal: No Symptoms Reported Genitourinary: No Symptoms Reported Musculoskeletal: No Symptoms Reported Skin: See HPI Neurological: No Symptoms Reported Physical Exam Vital Signs: Vital Signs Temperature 99.8 F Temperature 100.1 F Temperature 98.0 F Pulse Rate [Right Radial] 109 Pulse Rate [Right Radial] 106 Respiratory Rate 20 Respiratory Rate 20 Respiratory Rate 18 Respiratory Rate 20 Respiratory Rate 20 Blood Pressure [Right Arm] 163/77 Blood Pressure [Right Arm] 139/62 O2 Sat by Pulse Oximetry 92 O2 Sat by Pulse Oximetry 95 Oriented: Normal, Time, Person and Place Eyes: Normal Ear: Normal Nose: Normal Throat: Normal Respiratory: Clear Throughout Cardiovascular: Normal and Other (Right foot is warm with good and Doppler signal) : Normal Auscultation: Bowel Sounds: Normal Palpation: Normal Tenderness: Normal Skin: Wound (Redness over the entire right forefoot with tenderness with small amount of purulent drainage from around the right great toe plantar surface.) Musculoskeletal: Normal (With exception of MRI showing osteomyelitis of the right great toe) Psychiatric: Normal Mood Description: Calm Affect: Normal Speech Pattern: Clear and Appropriate Plan (1) Osteomyelitis of great toe of right foot: Status: Acute Plan: This patient has no significant arterial problem that requires any type of intervention at this time. After amputation and discharge patient should have follow-up with me in the office. (2) Diabetes mellitus type 2 with complications, uncontrolled: Status: Acute
[2024-12-09] MEDS: VERSED IVP PRN (09:55)
[2024-12-09] MEDS ORDERED: XYLOCAINE 2 % (PLAIN) PRN (09:56)
[2024-12-09] MEDS: DIPRIVAN VIAL 120 ML IVP PRN (09:57)
[2024-12-09] MEDS: KETAMINE HCL IV PRN (09:57)
[2024-12-09] MEDS: PRECEDEX INJ VIAL IVP PRN (09:57)
[2024-12-09] MEDS: BETADINE SOLN ONE (10:00)
[2024-12-09] MEDS: XYLOCAINE 1% and EPINEPHRINE 1:100,000 ONE (10:05)
[2024-12-09] MEDS: TORADOL 30 MG VIAL ONE (10:13)
[2024-12-09] MEDS: OFIRMEV IV 1000 MG VIAL 1,000 MG/100 ML VIAL IV ONE (10:14)
[2024-12-09] MEDS: TORADOL 30 MG VIAL IVP PRN (10:17)
[2024-12-09] MEDS: OFIRMEV IV 1000 MG VIAL 1,000 MG/100 ML VIAL IV PRN (10:20)
[2024-12-09] MEDS: TOBRAMYCIN SULFATE ONE (10:20)
[2024-12-09] MEDS: VANCOMYCIN HCL ONE (10:20)
[2024-12-09] MEDS ORDERED: GLUCOPHAGE ONE (16:54)
[2024-12-10] MEDS ORDERED: GLUCOPHAGE ONE (04:26)
[2024-12-10 05:56] LABS: MEAN PLATELET VOLUME 8.3 fL (7.4-11.0); RED CELL DISTRIBUTION WIDTH 14.0 % (11.6-16.5)
[2024-12-10 06:15] LABS: COR CA(FOR HYPOALB) 10.1 mg/dL (8.5-10.1); COR NA(FOR HYPERGLY) 140 mmol/L (136-145); CREATININE 0.96 mg/dL (0.55-1.02); eGFR NON BLACK RACES > 60 (>60)
[2024-12-10] MEDS: PHARMACY COMMENT IV NR (09:00)
[2024-12-10 09:20] LABS: CREATININE 0.75 mg/dL (0.55-1.02)
--- NOTE | 2024-12-10 09:57 | NOTE.SOAP ---
Soap Note Note for Day of Date of Exam: 12/10/24 Subjective Data Subjective Data: Patient seen at bedside resting comfortably. Patient states her pain is significantly improved from prior to surgery, is experiencing some aching pain likely due to the surgery itself. She states pain medication does help. Denies shortness of breath or calf pain at this time. Objective Data Objective Data: S/P open right hallux amputation and left partial second digit amputation. Outer surgical dressing removed as there is a cement antibiotic spacer overlying both open surgical sites. Cellulitis and edema has significantly improved to the right foot. No pain or tenderness noted to palpation. No fluctuance appreciated to surrounding sites. No malodor appreciated. The dry eschar measuring 1.8 x 1.8 mm to the medial calf of RLE continues to be stable with no fluctuance, no probing, no draining, no malodor and no purulence. No periwound erythema or edema appreciated at this time. Assessment Assessment: 49 y/o female s/p gangrene and osteomyelitis of the right hallux and second left digit Plan Plan: Patient to return to OR for repeat washout, partial first ray amputation and wound vac of the right foot and a second digit amputation of the left foot with DPC tomorrow 12/11/24 at 7:30AM. Patient to be NPO at midnight Patient to continue IV abx, likely to be discharged with IV abx Will have wound vac through the weekend and right surgical site will be closed on Saturday prior to discharge- no wound vac required on discharge Due to patients uncontrolled diabetes, her prognosis at this time is poor. This has been discussed with her and we will attempt to salvage Patient will need to follow up regularly with podiatry and her primary care physician Spoke to vascular surgeon, Dr. Rahman, he will have patient follow up outpatient for RLE as he is not concerned about blood flow to her foot at this time
[2024-12-10] MEDS: NS 250 ML IV 250 ML IV ONE (18:04)
[2024-12-10] MEDS: GLUCOPHAGE ONE (18:05)
[2024-12-10] MEDS: VANCOMYCIN IV *PREMIX 1 G/200 ML BAG 1 G/200 ML PIGGYBACK IV SCH (20:48)
[2024-12-11 05:49] LABS: MEAN PLATELET VOLUME 8.2 fL (7.4-11.0); RED CELL DISTRIBUTION WIDTH 14.6 % (11.6-16.5)
[2024-12-11 06:07] LABS: COR CA(FOR HYPOALB) 10.2 mg/dL (8.5-10.1); COR NA(FOR HYPERGLY) 144 mmol/L (136-145); CREATININE 0.78 mg/dL (0.55-1.02); eGFR NON BLACK RACES > 60 (>60)
[2024-12-11] MEDS: HIBICLENS WASH EXT ONE (06:10)
[2024-12-11] MEDS: VERSED ONE (06:26)
[2024-12-11] MEDS: ZOFRAN INJ 4 MG VIAL ONE (06:26)
[2024-12-11] MEDS: DIPRIVAN VIAL 20 ML ONE ×2 (06:26→09:21)
[2024-12-11] MEDS: OFIRMEV IV 1000 MG VIAL 1,000 MG/100 ML VIAL IV ONE (06:27)
[2024-12-11] MEDS: NS 1,000 ML IV 200 ML IV PRN (07:00)
[2024-12-11] MEDS: NS 100 ML IV 100 ML ONE (07:02)
[2024-12-11] MEDS: ANCEF VIAL 1 GRAM ONE (07:02)
[2024-12-11] MEDS: ZOFRAN INJ 4 MG VIAL IVP PRN (07:05)
[2024-12-11] MEDS: ANCEF VIAL 1 GRAM IV PRN (07:20)
[2024-12-11] MEDS: BETADINE SOLN ONE (07:22)
[2024-12-11] MEDS: TORADOL 30 MG VIAL ONE (07:22)
[2024-12-11] MEDS: VERSED IVP PRN (07:25)
[2024-12-11] MEDS: DIPRIVAN VIAL 240 ML IVP PRN (07:26)
[2024-12-11] MEDS ORDERED: XYLOCAINE 2 % (PLAIN) PRN (07:26)
[2024-12-11] MEDS: KETAMINE HCL IV PRN (07:26)
[2024-12-11] MEDS: PRECEDEX INJ VIAL IVP PRN (07:26)
[2024-12-11] MEDS: XYLOCAINE 1% and EPINEPHRINE 1:100,000 ONE (07:32)
[2024-12-11] MEDS: TORADOL 30 MG VIAL IVP PRN (07:37)
[2024-12-11] MEDS: OFIRMEV IV 1000 MG VIAL 1,000 MG/100 ML VIAL IV PRN (07:48)
--- NOTE | 2024-12-11 08:43 | OR.IMMED ---
IMMEDIATE POST-OP NOTE Immediate Post-Op Note Date of surgery/procedure: 12/11/24 Pre-Op Diagnosis: Osteomyelitis of right foot, osteomyelitis of the second digit of the left foot Gangrene, right foot Post-Op Diagnosis: Osteomyelitis of right foot, osteomyelitis of the second digit of the left foot Gangrene, right foot Procedure: Repeat washout of the right and left foot Removal of antibiotic beads, right and left foot Amputation of second digit, left foot Delayed primary closure of the left second digit of left foot First metatarsal head resection of the right foot Wound vac application right foot Description of Procedure: See dication Surgeon/Raschel Knitting Machine Operator: Jaymie Findings: see dictation Specimens Removed: Proximal margin of first metatarsal to path Estimated Blood Loss: 35 cc Complications: none Progress Notes: see dictation Discharge Progress Notes: patient transported back to inpatient floors Wound Vac through the weekend, will d/c Wound Vac on Saturday and DPC right foot in the AM Wound Vac settings 125 mmHg, medium intensity of continuous pressure Condition: Stable
--- NOTE | 2024-12-11 08:43 | DR.OPNOTE ---
OP NOTE Pre-Op Diagnosis: Osteomyelitis of right foot and left second digit, Abscess right foot Post-Op Diagnosis: Same as preop Procedure Date Date Of Procedure: 12/11/24 Procedure: 1. Repeat washout of the right and left foot 2. Removal of antibiotic beads, right and left foot 3. Amputation of second digit, left foot 4. Delayed primary closure of the left second digit of left foot 5. First metatarsal head resection of the right foot 6. Wound vac application right foot Anesthesia Comment: MAC with local anesthetic Findings: Hemostasis No tourniquet used Anesthesia MAC with local anesthetic Injectables 12 cc of 1% lidocaine w/ epi Materials used 3-0 Monocryl, 3-0 Nylon, Black wound vac foam Description: The patient presented to the pre-operative holding area having been NPO since midnight. History and physical and all preoperative studies were reviewed and there were no contraindications to the proposed procedure. The patient confirmed the procedure to be performed. The risks and benefits of the procedure were again discussed with the patient prior to the procedure and the patient verbalized understanding. While in preoperative holding, the appropriate IV was instituted. Both the left and right feet were then marked with indelible ink. The patient was taken to the operating room and patient was transferred to the operating table in a supine position. The appropriate anesthetics were administered and supplemented with 12 cc of 1% Lidocaine w/ epi in a gia block fashion to the right foot and digit block fashion to the second digit of the left foot. The feet were then prepped and draped in the usual aseptic manner. Bilateral lower extremities were then lowered to the OR table and sterile draping completed. A time-out was performed to verify the correct patient, procedure and extremity and the following procedure was done. Both surgical sites had antibiotic cement that was removed in total. Second digit amputation of the left foot Attention was directed to the open surgical site of the second digit of the left foot where a previously partial amputation had been performed. For closure purposes and due to the nonviable tissue at the distal aspect of the stump site, a second digit amputation was performed. A fishmouth incision was made overlying the distal aspect of the proximal phalange utilizing a fresh #15 blade. This incision was deepened down to bone. The phalanx was disarticulated carefully at the metatarsophalangeal joint. The remainder of the digit was removed from the surgical field. The soft tissue was examined and copiously irrigated with Prontosan. Deep closure was achieved with 3-0 monocryl. Skin was reapproximated with 3-0 Nylon in a simple interrupted suture type fashion. Repeat Washout with First Met head resection of right foot Attention was then directed to the distal shaft of the first metatarsal where the previously opened hallux amputation site was noted, utilizing a fresh #15 blade, a linear incision was made extended distally to expose the remainder of the first metatarsal head on the medial aspect of the foot. Utilizing a fresh #15 blade, the incision was deepened down to the level of bone. The first metatarsal head was identified and fully exposed. The open site was then examined, utilizing a rongeur, all nonviable tissue was then removed. We then copiously irrigated the surgical site with prontosan. Utilizing a power saw, an osteotomy was performed from dorsal to plantar. The proximal margin of the metatarsal was sent to pathology for further analysis. The surgical site was t hen copiously irrigated with Prontosan once again. Skin to medial aspect of the foot was then reapproximated with 3-0 Nylon in a simple interrupted suture type fashion. The open distal stump site will remain open at this time and a black wound vac foam dressing was applied. The wound vac was set to 125 mmHg of continuous pressure at medium intensity. Post operative dressings included xeroform, 4x4, webril and an miguel to the left foot, and abd, webril and miguel to the right foot. The patient tolerated the procedure and anesthesia well and was taken from the OR and returned to patients room on the inpatient floors with vital signs stable and vascular status intact to bilateral lower extremities. Patient will remain in house through the weekend with Wound Vac intact to the right lower extremity. She will return to the OR on Saturday for DPC of the right foot. Patient will not require wound vac on discharge. Specimen/Pathology: Proximal margin of 1st right metatarsal EBL: 35 cc Drains/Tubes Comment: Wound Vac to right surgical site Hardware: None Complications:: None Disposition/Condition: Pt. tolerated procedure without difficulty. Extubated in the OR and taken to PACU in stable condition.
[2024-12-11] MEDS: GLUCOPHAGE ONE (09:21)
[2024-12-11] MEDS: NS 1,000 ML IV 1,000 ML ONE (09:31)
[2024-12-11] MEDS: CATAPRES TAB 0.1 MG PO ONE (14:12)
[2024-12-11] MEDS: NORCO 10/325 TAB PO PRN (14:57)
[2024-12-11] MEDS: SUPRANE IN ONE (17:41)
[2024-12-11 20:27] LABS: CREATININE 0.64 mg/dL (0.55-1.02)
[2024-12-11] MEDS: PHARMACY COMMENT IV ONE (21:02)
[2024-12-12] MEDS ORDERED: GLUCOPHAGE ONE (04:00)
[2024-12-12 06:03] LABS: MEAN PLATELET VOLUME 7.9 fL (7.4-11.0); RED CELL DISTRIBUTION WIDTH 14.5 % (11.6-16.5)
[2024-12-12 06:18] LABS: COR CA(FOR HYPOALB) 10.2 mg/dL (8.5-10.1); COR NA(FOR HYPERGLY) 141 mmol/L (136-145); CREATININE 0.65 mg/dL (0.55-1.02); eGFR NON BLACK RACES > 60 (>60)
--- NOTE | 2024-12-12 07:57 | NOTE.SOAP ---
Soap Note Note for Day of Date of Exam: 12/12/24 Subjective Data Subjective Data: Patient is seen resting comfortably at bedside. Patient states she is having pain that isn't being controlled with [place]. She does take Tramadol outpatient. She denies shortness of breath. Is experiencing some nausea still. Objective Data Objective Data: Wound vac dressing intact to the right foot. Wound vac settings:125 mmHg, continuous pressure of medium intensity Exposed digits 2-5 of right foot reveal a CFT of less than 2 sec and ROM WNL. To the right medial calf, a dry eschar is still present and stable. No draining, no fluctuance, no periwound erythema, no crepitus, no sign of infection. No tenderness to palpation. To the left foot- surgical dressing remained intact overlying the second digit amputation site. The hallux does have a preulcerative lesion noted to the plantar aspect that is stable at this time and is not a wound nor appears tender and no concern for infection at this time. Assessment Assessment: 49 y/o female with uncontrolled diabetes s/p partial first ray amp on the right after abscess and osteomyelitis; second digit amputation to the left from osteomyelitis Plan Plan: POD #1 second digit amp left foot, met head resection of the right foot and wound vac rima WBC is elevated today- could be reactive leukocytosis from surgical procedure Patient to return to the OR Saturday for DPC of the right, will remove wound vac Discussed in detail the importance of patient following up with primary care physician and process architect. Also discussed diabetic foot care and the importance of managing her blood sugar levels. I did discuss the possibility of future ampu tations if she does not follow up and does not control her blood sugar levels. Changed her [place] pain meds to Percocet- will update outpatient script Patient will be d/c with antibiotic as well- wound cultures growing gram positive cocci from initial surgery Patient can WBAT in surgical shoes Further recommendations to follow surgical intervention
[2024-12-12] MEDS: PERCOCET TAB 5/325 MG PO PRN (08:32)
--- NOTE | 2024-12-12 10:29 | PCM.PROG ---
Progress Note Progress Note for Day of Date of Exam: 12/12/24 Subjective Subjective: Patient seen at bedside, no acute events overnight. She is POD #1 second digit amp left foot, met head resection of the right foot and wound vac rima. Podiatry following. Patient is scheduled to go back to the OR on Saturday for closure. She states her pain has not been well-controlled with the current regimen. Podiatry changed her pain medicine to Percocet this morning. She does report some nausea. Labs/imaging reviewed: - WBC 9.1 hemoglobin 10.4 potassium 4.4 creatinine 0.65 - Wound culture: Gram-positive cocci - Blood cultures negative Plan: Follow podiatry recommendations. Continue wound VAC care and dressing changes. Continue pain control as needed. Add Zofran as needed. Continue home medications. Continue IV antibiotics. Follow final cultures. Replace electrolytes as per protocol. Monitor a.m. labs and imaging. Past Medical Family Social History Allergies: Allergies No Known Drug Allergies Allergy (Verified 02/21/24 06:19) Vital Signs and I&O's Vital Signs: Vital Signs Temperature 98.7 F Temperature 99.1 F Pulse Rate [Right Radial] 98 Pulse Rate [Right Radial] 97 Respiratory Rate 18 Respiratory Rate 17 Respiratory Rate 18 Blood Pressure [Left Arm] 143/72 Blood Pressure [Left Arm] 160/74 O2 Sat by Pulse Oximetry 93 O2 Sat by Pulse Oximetry 95 Intake and Output: Intake & Output 12/09/24 12/10/24 12/11/24 12/12/24 23:59 23:59 23:59 23:59 Intake Total 4713 / 4713 3932 / 3932 3234 / 3234 1371 / 1371 Output Total 925 / 925 105 / 105 Balance 3788 / 3788 3932 / 3932 3129 / 3129 1371 / 1371 Physical Exam Oriented: Normal, Time, Person and Place Eyes: Normal Ear: Normal Nose: Normal Throat: Normal Respiratory: Normal Cardiovascular: Normal and Other (Right foot is warm with good and Doppler signal) Auscultation: Bowel Sounds: Normal Tenderness: Normal Skin: Wound (Redness over the entire right forefoot with tenderness with small amount of purulent drainage from around the right great toe plantar surface.) Musculoskeletal: Normal (With exception of MRI showing osteomyelitis of the right great toe) Psychiatric: Normal Mood Description: Calm Affect: Normal Speech Pattern: Clear Laboratory and Diagnostics 12/12/24 05:26 12/12/24 05:26 Labs: 12/09/24 10:07 Foot - Left Wound Gram Stain - Final 12/09/24 10:07 Foot - Left Wound Culture - Preliminary 12/09/24 10:20 Foot - Right Wound Gram Stain - Final 12/09/24 10:20 Foot - Right Wound Culture - Preliminary 12/07/24 16:55 Toe - Right Big Wound Gram Stain - Final 12/07/24 16:55 Toe - Right Big Wound Culture - Final Staphylococcus Aureus 12/07/24 17:12 Blood Blood Culture - Preliminary 12/07/24 17:01 Blood Blood Culture - Preliminary Laboratory WBC 9.1 X10^3/uL (3.6-10.0) 12/12/24 05:26 RBC 3.77 X10^6/uL (3.5-5.4) 12/12/24 05:26 Hgb 10.4 g/dL (12.0-16.0) L 12/12/24 05:26 Hct 31.3 % (36.0-47.0) L 12/12/24 05:26 MCV 82.9 fL (80.0-100.0) 12/12/24 05:26 MCH 27.5 pg (27.0-34.0) 12/12/24 05:26 MCHC 33.2 g/dL (33.0-35.0) 12/12/24 05:26 RDW 14.5 % (11.6-16.5) 12/12/24 05:26 Plt Count 326 X10^3/uL (150.0-450.0) 12/12/24 05:26 MPV 7.9 fL (7.4-11.0) 12/12/24 05:26 Neut % (Auto) 82.7 % (42.0-75.0) H 12/12/24 05:26 Lymph % (Auto) 10.8 % (21.0-51.0) L 12/12/24 05:26 [place] % (Auto) 3.9 % (0.0-13.0) 12/12/24 05:26 Eos % (Auto) 1.2 % (0.9-2.9) 12/12/24 05:26 Baso % (Auto) 1.4 % (0.2-1.0) H 12/12/24 05:26 Neut # (Auto) 7.5 x10^3/uL (2.2-4.8) H 12/12/24 05:26 Lymph # (Auto) 1.0 X10^3/uL (1.3-2.9) L 12/12/24 05:26 [place] # (Auto) 0.4 x10^3/uL (0.3-0.8) 12/12/24 05:26 Eos # (Auto) 0.1 x10^3/uL (0.0-0.2) 12/12/24 05:26 Baso # (Auto) 0.1 X10^3/uL (0.0-0.1) 12/12/24 05:26 Absolute Nucleated RBC 0.1 /100WBC 12/12/24 05:26 Sodium 138 mmol/L (136-145) 12/12/24 05:26 Corrected Sodium 141 mmol/L (136-145) 12/12/24 05:26 Potassium 4.4 mmol/L (3.5-5.1) 12/12/24 05:26 Chloride 104 mmol/L (98-107) 12/12/24 05:26 Carbon Dioxide 24.1 mmol/L (21-32) 12/12/24 05:26 BUN 11 mg/dL (7-18) 12/12/24 05:26 Creatinine 0.65 mg/dL (0.55-1.02) 12/12/24 05:26 Est GFR (MDRD) Af Amer > 60 (>60) 12/12/24 05:26 Est GFR (MDRD) Non-Af > 60 (>60) 12/12/24 05:26 Glucose 232 mg/dL (65-99) H 12/12/24 05:26 POC Glucose (mg/dL) 206 mg/dL (65-99) H 12/12/24 05:14 Hemoglobin A1c 11.6 % 12/08/24 04:20 Calcium 8.7 mg/dL (8.5-10.1) 12/12/24 05:26 Corrected Calcium 10.2 mg/dL (8.5-10.1) H 12/12/24 05:26 Magnesium 2.0 mg/dL (2.0-2.9) 12/10/24 05:13 Ferritin 323 ng/mL (8-252) H 12/09/24 05:08 Total Bilirubin 0.40 mg/dL (0.2-1.0) 12/12/24 05:26 AST 18 Units/L (15-37) 12/12/24 05:26 ALT 13 Units/L (12-78) 12/12/24 05:26 Alkaline Phosphatase 97 Units/L (46-116) 12/12/24 05:26 Total Protein 7.6 g/dL (6.4-8.2) 12/12/24 05:26 Albumin 2.1 g/dL (3.4-5.0) L 12/12/24 05:26 Globulin 5.5 g/dL (2.5-4.5) H 12/12/24 05:26 Albumin/Globulin Ratio 0.4 Ratio (1.1-2.1) L 12/12/24 05:26 Specimen Type Clean catch urine 12/07/24 19:45 Urine Color Yellow (YELLOW) 12/07/24 19:45 Urine Appearance Clear (CLEAR) 12/07/24 19:45 Urine pH 6.0 (5.0 - 8.0) 12/07/24 19:45 Ur Specific [place] 1.020 (1.000-1.030) 12/07/24 19:45 Urine Protein 4+ (NEGATIVE) 12/07/24 19:45 Urine Glucose (UA) 4+ (NEGATIVE) 12/07/24 19:45 Urine Ketones Negative (NEGATIVE) 12/07/24 19:45 Urine Blood 4+ (NEGATIVE) 12/07/24 19:45 Urine Nitrite Negative (NEGATIVE) 12/07/24 19:45 Urine Bilirubin Negative (NEGATIVE) 12/07/24 19:45 Urine Urobilinogen Normal (NORMAL) 12/07/24 19:45 Ur Leukocyte Esterase Negative (NEGATIVE) 12/07/24 19:45 Urine RBC None seen /HPF (0-3) 12/07/24 19:45 Urine WBC 0-2 /HPF (0-5) 12/07/24 19:45 Ur Squamous Epith Cells Rare /HPF (NEGATIVE) 12/07/24 19:45 Urine Bacteria Negative /HPF (NEGATIVE) 12/07/24 19:45 Ur Culture Indicated? No/not indicated 12/07/24 19:45 Vancomycin Trough 12.6 ug/mL (15-20) L 12/11/24 19:58 Infect Dis PCR Plus See scanned report 12/07/24 17:11 Tissue Pathology See comment. 12/09/24 10:22 Blood Type A POSITIVE 12/10/24 11:02 Antibody Screen Negative 12/10/24 11:02 Crossmatch See Detail 12/10/24 11:02 Plan (1) Post-op pain: Status: Acute (2) Osteomyelitis of great toe of right foot: Status: Acute (3) Diabetes mellitus type 2 with complications, uncontrolled: Status: Acute
[2024-12-12] MEDS: GLUCOPHAGE ONE (16:51)
[2024-12-13 04:57] LABS: MEAN PLATELET VOLUME 7.8 fL (7.4-11.0); RED CELL DISTRIBUTION WIDTH 14.4 % (11.6-16.5)
[2024-12-13 04:59] LABS: COR CA(FOR HYPOALB) 10.2 mg/dL (8.5-10.1); COR NA(FOR HYPERGLY) 141 mmol/L (136-145); CREATININE 0.58 mg/dL (0.55-1.02); eGFR NON BLACK RACES > 60 (>60)
[2024-12-13] MEDS ORDERED: CONSULT PHARMACY - POTASSIUM & MAGNESIUM XX SCH (06:00)
[2024-12-13] MEDS: GLUCOPHAGE ONE ×2 (06:09→16:44)
[2024-12-13] MEDS: MAG-OX TAB PO SCH (08:21)
[2024-12-13] MEDS: K-DUR TAB 20 MEQ PO SCH (08:22)
--- NOTE | 2024-12-13 10:26 | PCM.PROG ---
Progress Note Progress Note for Day of Date of Exam: 12/13/24 Subjective Subjective: Patient seen at bedside, no acute events overnight. She is POD #2 second digit amp left foot, met head resection of the right foot and wound vac rima. Podiatry following. Patient is scheduled to go back to the OR tomorrow for closure. She did get Percocet yesterday once and morphine for most of the day yesterday. She reports nausea with Percocet. Labs/imaging reviewed: - WBC 7.5 hemoglobin 9.5 potassium 3.8 creatinine 0.58 - Wound culture: Gram-positive cocci - Blood cultures negative Plan: Follow podiatry recommendations. Continue wound VAC care and dressing changes. Continue pain control as needed. Zofran as needed. Continue home medications. Continue IV antibiotics. Follow final cultures. Decrease hydration to 75cc/hr. Replace electrolytes as per protocol. Monitor a.m. labs and imaging. Past Medical Family Social History Allergies: Allergies No Known Drug Allergies Allergy (Verified 02/21/24 06:19) Vital Signs and I&O's Vital Signs: Vital Signs Temperature 98.3 F Temperature 97.8 F Pulse Rate [Right Radial] 78 Pulse Rate [Right Radial] 85 Respiratory Rate 19 Respiratory Rate 18 Respiratory Rate 18 Respiratory Rate 18 Blood Pressure [Right Arm] 160/89 Blood Pressure [Right Arm] 160/77 O2 Sat by Pulse Oximetry 93 O2 Sat by Pulse Oximetry 96 Intake and Output: Intake & Output 12/10/24 12/11/24 12/12/24 12/13/24 23:59 23:59 23:59 23:59 Intake Total 3932 / 3932 3234 / 3234 4325 / 4325 1196 / 1196 Output Total 105 / 105 Balance 3932 / 3932 3129 / 3129 4325 / 4325 1196 / 1196 Physical Exam Oriented: Normal, Time, Person and Place Eyes: Normal Ear: Normal Nose: Normal Throat: Normal Respiratory: Normal Cardiovascular: Normal and Other (Right foot is warm with good and Doppler signal) Auscultation: Bowel Sounds: Normal Palpation: Normal Tenderness: Normal Skin: Wound (Redness over the entire right forefoot with tenderness with small amount of purulent drainage from around the right great toe plantar surface.) Musculoskeletal: Normal (With exception of MRI showing osteomyelitis of the right great toe) Psychiatric: Normal Mood Description: Calm Affect: Normal Speech Pattern: Clear Laboratory and Diagnostics 12/13/24 04:35 12/13/24 04:35 Labs: 12/07/24 17:01 Blood Blood Culture - Final 12/07/24 17:12 Blood Blood Culture - Final 12/09/24 10:20 Foot - Right Wound Gram Stain - Final 12/09/24 10:20 Foot - Right Wound Culture - Preliminary 12/09/24 10:07 Foot - Left Wound Gram Stain - Final 12/09/24 10:07 Foot - Left Wound Culture - Final Staphylococcus Intermedius#1 Staphylococcus Aureus 12/07/24 16:55 Toe - Right Big Wound Gram Stain - Final 12/07/24 16:55 Toe - Right Big Wound Culture - Final Staphylococcus Aureus Laboratory WBC 7.5 X10^3/uL (3.6-10.0) 12/13/24 04:35 RBC 3.46 X10^6/uL (3.5-5.4) L 12/13/24 04:35 Hgb 9.5 g/dL (12.0-16.0) L 12/13/24 04:35 Hct 28.6 % (36.0-47.0) L 12/13/24 04:35 MCV 82.5 fL (80.0-100.0) 12/13/24 04:35 MCH 27.5 pg (27.0-34.0) 12/13/24 04:35 MCHC 33.3 g/dL (33.0-35.0) 12/13/24 04:35 RDW 14.4 % (11.6-16.5) 12/13/24 04:35 Plt Count 319 X10^3/uL (150.0-450.0) 12/13/24 04:35 MPV 7.8 fL (7.4-11.0) 12/13/24 04:35 Neut % (Auto) 66.4 % (42.0-75.0) 12/13/24 04:35 Lymph % (Auto) 22.8 % (21.0-51.0) 12/13/24 04:35 [place] % (Auto) 7.7 % (0.0-13.0) 12/13/24 04:35 Eos % (Auto) 2.1 % (0.9-2.9) 12/13/24 04:35 Baso % (Auto) 1.0 % (0.2-1.0) 12/13/24 04:35 Neut # (Auto) 5.0 x10^3/uL (2.2-4.8) H 12/13/24 04:35 Lymph # (Auto) 1.7 X10^3/uL (1.3-2.9) 12/13/24 04:35 [place] # (Auto) 0.6 x10^3/uL (0.3-0.8) 12/13/24 04:35 Eos # (Auto) 0.2 x10^3/uL (0.0-0.2) 12/13/24 04:35 Baso # (Auto) 0.1 X10^3/uL (0.0-0.1) 12/13/24 04:35 Absolute Nucleated RBC 0.3 /100WBC 12/13/24 04:35 Sodium 139 mmol/L (136-145) 12/13/24 04:35 Corrected Sodium 141 mmol/L (136-145) 12/13/24 04:35 Potassium 3.8 mmol/L (3.5-5.1) 12/13/24 04:35 Chloride 105 mmol/L (98-107) 12/13/24 04:35 Carbon Dioxide 27.6 mmol/L (21-32) 12/13/24 04:35 BUN 9 mg/dL (7-18) 12/13/24 04:35 Creatinine 0.58 mg/dL (0.55-1.02) 12/13/24 04:35 Est GFR (MDRD) Af Amer > 60 (>60) 12/13/24 04:35 Est GFR (MDRD) Non-Af > 60 (>60) 12/13/24 04:35 Glucose 180 mg/dL (65-99) H 12/13/24 04:35 POC Glucose (mg/dL) 177 mg/dL (65-99) H 12/13/24 05:14 Hemoglobin A1c 11.6 % 12/08/24 04:20 Calcium 8.5 mg/dL (8.5-10.1) 12/13/24 04:35 Corrected Calcium 10.2 mg/dL (8.5-10.1) H 12/13/24 04:35 Magnesium 1.5 mg/dL (2.0-2.9) L 12/13/24 04:35 Ferritin 323 ng/mL (8-252) H 12/09/24 05:08 Total Bilirubin 0.20 mg/dL (0.2-1.0) 12/13/24 04:35 AST 15 Units/L (15-37) 12/13/24 04:35 ALT 12 Units/L (12-78) 12/13/24 04:35 Alkaline Phosphatase 84 Units/L (46-116) 12/13/24 04:35 Total Protein 6.9 g/dL (6.4-8.2) 12/13/24 04:35 Albumin 1.9 g/dL (3.4-5.0) L 12/13/24 04:35 Globulin 5.0 g/dL (2.5-4.5) H 12/13/24 04:35 Albumin/Globulin Ratio 0.4 Ratio (1.1-2.1) L 12/13/24 04:35 Specimen Type Clean catch urine 12/07/24 19:45 Urine Color Yellow (YELLOW) 12/07/24 19:45 Urine Appearance Clear (CLEAR) 12/07/24 19:45 Urine pH 6.0 (5.0 - 8.0) 12/07/24 19:45 Ur Specific [place] 1.020 (1.000-1.030) 12/07/24 19:45 Urine Protein 4+ (NEGATIVE) 12/07/24 19:45 Urine Glucose (UA) 4+ (NEGATIVE) 12/07/24 19:45 Urine Ketones Negative (NEGATIVE) 12/07/24 19:45 Urine Blood 4+ (NEGATIVE) 12/07/24 19:45 Urine Nitrite Negative (NEGATIVE) 12/07/24 19:45 Urine Bilirubin Negative (NEGATIVE) 12/07/24 19:45 Urine Urobilinogen Normal (NORMAL) 12/07/24 19:45 Ur Leukocyte Esterase Negative (NEGATIVE) 12/07/24 19:45 Urine RBC None seen /HPF (0-3) 12/07/24 19:45 Urine WBC 0-2 /HPF (0-5) 12/07/24 19:45 Ur Squamous Epith Cells Rare /HPF (NEGATIVE) 12/07/24 19:45 Urine Bacteria Negative /HPF (NEGATIVE) 12/07/24 19:45 Ur Culture Indicated? No/not indicated 12/07/24 19:45 Vancomycin Trough 12.6 ug/mL (15-20) L 12/11/24 19:58 Infect Dis PCR Plus See scanned report 12/07/24 17:11 Tissue Pathology See comment. 12/09/24 10:22 Blood Type A POSITIVE 12/10/24 11:02 Antibody Screen Negative 12/10/24 11:02 Crossmatch See Detail 12/10/24 11:02 Plan (1) Post-op pain: Status: Acute (2) Osteomyelitis of great toe of right foot: Status: Acute (3) Diabetes mellitus type 2 with complications, uncontrolled: Status: Acute
[2024-12-13] MEDS ORDERED: MAGNESIUM SULFATE 1 GRAM/100 mL PREMIX 1 G/100 ML BAG IV SCH (11:00)
[2024-12-13] MEDS: MAGNESIUM SULFATE 1 GRAM/100 mL PREMIX 1 G/100 ML BAG IV SCH (11:04)
[2024-12-13] MEDS: HIBICLENS WASH EXT ONE (20:18)
[2024-12-13 20:55] LABS: CREATININE 0.66 mg/dL (0.55-1.02)
[2024-12-13] MEDS ORDERED: VANCOMYCIN HCL 250 MG, VANCOMYCIN HCL 1 G in D5W 250 ML IV 250 ML IV SCH (22:00)
[2024-12-13] MEDS: VANCOMYCIN IV *PREMIX 1.25 G/250 ML BAG 1.25 G/250 ML PIGGYBACK IV SCH (22:08)
[2024-12-14 04:45] LABS: MEAN PLATELET VOLUME 7.6 fL (7.4-11.0); RED CELL DISTRIBUTION WIDTH 14.7 % (11.6-16.5)
[2024-12-14 04:51] LABS: COR CA(FOR HYPOALB) 10.0 mg/dL (8.5-10.1); COR NA(FOR HYPERGLY) 141 mmol/L (136-145); CREATININE 0.66 mg/dL (0.55-1.02); eGFR NON BLACK RACES > 60 (>60)
[2024-12-14] MEDS: CONSULT PHARMACY - POTASSIUM & MAGNESIUM XX SCH (07:28)
[2024-12-14] MEDS: MAG-OX TAB PO SCH (08:05)
[2024-12-14] MEDS: NS 1,000 ML IV 1,000 ML ONE (09:14)
[2024-12-14] MEDS: FENTANYL VIAL INJ 100 mcg ONE (09:38)
[2024-12-14] MEDS: VERSED ONE (09:38)
[2024-12-14] MEDS: DIPRIVAN VIAL 20 ML ONE (09:38)
[2024-12-14] MEDS: ZOFRAN INJ 4 MG VIAL ONE (09:38)
[2024-12-14] MEDS: CATAPRES TAB 0.1 MG PO ONE (09:42)
[2024-12-14] MEDS: REGLAN INJ 10 MG VIAL ONE (09:57)
[2024-12-14] MEDS: PEPCID 20 MG VIAL ONE (10:00)
[2024-12-14] MEDS: NS 1,000 ML IV 200 ML IV PRN (10:00)
[2024-12-14] MEDS: ZOFRAN INJ 4 MG VIAL IVP PRN (10:04)
[2024-12-14] MEDS: VANCOMYCIN HCL IV PRN (10:05)
[2024-12-14] MEDS: BETADINE SOLN ONE (10:05)
[2024-12-14] MEDS: PEPCID 20 MG VIAL IVP PRN (10:06)
[2024-12-14] MEDS: REGLAN INJ 10 MG VIAL IVP PRN (10:08)
[2024-12-14] MEDS: VERSED IVP PRN (10:09)
[2024-12-14] MEDS ORDERED: XYLOCAINE 2 % (PLAIN) PRN (10:12)
[2024-12-14] MEDS: DIPRIVAN VIAL 50 ML IVP PRN (10:13)
[2024-12-14] MEDS ORDERED: KETAMINE HCL PRN (10:13)
[2024-12-14] MEDS: PRECEDEX INJ VIAL IVP PRN (10:13)
[2024-12-14] MEDS: MARCAINE 0.25% INJ ONE (10:15)
[2024-12-14] MEDS: OFIRMEV IV 1000 MG VIAL 1,000 MG/100 ML VIAL IV PRN (10:16)
[2024-12-14] MEDS: OFIRMEV IV 1000 MG VIAL 1,000 MG/100 ML VIAL IV ONE (10:19)
[2024-12-14] MEDS: FENTANYL VIAL INJ 100 mcg IVP PRN (10:26)
[2024-12-14] MEDS: CATAPRES TAB 0.1 MG ONE (10:42)
--- NOTE | 2024-12-14 10:44 | OR.IMMED ---
IMMEDIATE POST-OP NOTE Immediate Post-Op Note Date of surgery/procedure: 12/14/24 Pre-Op Diagnosis: Open surgical site, right foot Osteomyelitis, right foot Post-Op Diagnosis: Open surgical site, right foot Osteomyelitis, right foot Procedure: Delayed Primary Closure, right foot Description of Procedure: see dictation Surgeon/Diaper Machine Tender: Jaymie Findings: see dictation Specimens Removed: None Estimated Blood Loss: 10 cc Drains: NONE Complications: None Progress Notes: see dictation Discharge Progress Notes: Patient can be discharged home from podiatric standpoint Patient scripts for Bactrim ds for two weeks in chart, pain medication and zofran also in chart Patient to follow up outpatient with Dr. Coon at [facility] in [place] next Thursday 12/21 at 1:30PM for post op appointment Patient told to keep dressing clean dry and intact. If she does get it wet she is to apply betadine, dry sterile dressing to feet Patient can WBAT in surgical shoes
--- NOTE | 2024-12-14 10:58 | DR.OPNOTE ---
OP NOTE Pre-Op Diagnosis: Osteomyelitis and open surgical site of the right foot Post-Op Diagnosis: same as preop Procedure Date Date Of Procedure: 12/14/24 Procedure: Delayed primary closure of the right foot Type of Anesthesia: Local Findings: Hemostasis: no tourniquet Anesthesia: IV sedation w/ local anesthesia Injectables: 10 cc of 0.25% Marcaine plain Materials used: 3-0 Monocryl, 3-0 Nylon Procedure: The patient presented to the pre-operative holding area having been NPO since midnight. History and physical and all preoperative studies were reviewed and there were no contraindications to the proposed procedure. The patient confirmed the procedure to be performed. The risks and benefits of the procedure were again discussed with the patient prior to the procedure and patient verbalized understanding. The right foot was marked with inedible ink. The patient was then taken to the operating room and patient remained on her bed in the supine position. The appropriate anesthetic was then administered and a total of 10 cc of 0.25% marcaine plain was supplemented to the right foot in a koch block fashion. The foot was then prepped and draped in the usual aseptic manner. The following procedure was then performed. Attention was directed towards the open surgical site of the right foot. Utilizing a currette, debridement was performed to the open surgical tissue of the open keyur ray amp site. The surgical site was then inspected for any nonviable tissue, none was encountered and therefore I proceeded with a delayed primary closure. Utilizing Prontosan, the surgical site was copiously irrigated. Deep closure was achieved with 3-0 monocryl and skin was reapproximated with 3-0 Nylon. Post operative dressings included betadine soaked adaptic, 4x4s, abd and webril with an miguel wrap to the right lower extremity. Patient tolerated the procedure well. The left foot was also inspected once sterile field was broken from surgery completion. Sutures were noted to be intact to the left second digit amputation site with no signs of ischemia, no redness, no swelling, no odor and no signs of dehiscense. The left foot was dressed with betadine soaked adaptic, 4x4, webril and an miguel. Patient was then take back to inpatient floors with vascular status intact to bilateral feet. She can be discharged home from a podiatric standpoint. She has been prescribed Bactrim ds to be taken for 2 weeks, Percocet 5 and Zofran. Patient is to follow up outpatient with [facility] in [place] with Dr. Coon next Thursday 12/21 at 1:30 PM. She has also been instructed to keep her dressings clean, dry and intact. If dressing becomes wet she is to apply betadine and dry sterile dressing to her feet. Specimen/Pathology: None EBL: 10 cc Drains/Tubes Placed: None Hardware: None Cultures: None Complications:: None Disposition/Condition: Pt. tolerated procedure without difficulty. Extubated in the OR and taken to PACU in stable condition.
[2024-12-14 12:10] VITALS: O2SAT 99
[2024-12-14 12:53] VITALS: BP 179/90; PULSE 81; RESP 20; TEMP 98.2
[2024-12-14] MEDS: NORVASC TAB 5 MG PO SCH (13:00)
[2024-12-15] MEDS ORDERED: PHARMACY COMMENT IV NR (08:00)
== END 2024-12-14 14:00 | disposition home or self-care (01) | DRG 475 ==
LOC: MED/SURG → OBSVTOIN 16:15 → MED/SURG 12-12 08:12
PROVIDERS: ADMIT Obstetrics & Gynecology Obstetrics; ATTEND Obstetrics & Gynecology Obstetrics
DX: G89.18 Other acute postprocedural pain; B95.2 Enterococcus as the cause of diseases classified elsewhere; Z79.4 Long term (current) use of insulin; B95.7 Other staphylococcus as the cause of diseases classified elsewhere; Z59.86 Financial insecurity; L02.611 Cutaneous abscess of right foot; Z16.29 Resistance to other single specified antibiotic; E87.1 Hypo-osmolality and hyponatremia; M86.171 Other acute osteomyelitis, right ankle and foot; L03.115 Cellulitis of right lower limb; B95.61 Methicillin susceptible Staphylococcus aureus infection as the cause of diseases classified elsewhere; R26.89 Other abnormalities of gait and mobility; D63.8 Anemia in other chronic diseases classified elsewhere; M86.172 Other acute osteomyelitis, left ankle and foot; L97.518 Non-pressure chronic ulcer of other part of right foot with other specified severity; E11.621 Type 2 diabetes mellitus with foot ulcer; Z29.89 Encounter for other specified prophylactic measures; L97.228 Non-pressure chronic ulcer of left calf with other specified severity; E11.65 Type 2 diabetes mellitus with hyperglycemia; M79.671 Pain in right foot

== ENCOUNTER 2025-04-04 16:04 | Inpatient (IN) ==
[2025-04-04] MEDS: TYLENOL 500 MG TAB EXTRA STRENGTH PO ONE ×2 (16:41→20:10)
--- NOTE | 2025-04-04 17:03 | DR.EXTPAIN ---
HPI Time seen Time Seen by Provider: 04/04/25 16:50 PCP Primary Care Physician: Jake Davison Complaint/Symptoms Chief Complaint Doctor Comments: 50-year-old female to ED from home POV complains of Swelling to right lower extremity started th, and last night pt noticed blister to mid lower leg with bright reddness color to site. Lower leg warm to touch and red. Pain to lower leg increases with ambulation Chief Complaint:: Swelling to right lower extremity started thday, and last night pt noticed blister to mid lower leg with bright reddness color to site. Lower leg warm to touch and red. Pain to lower leg increases with ambulation. COVID-19 Coronavirus risk:travel/contact w/high risk person: No Has patient experienced Coronavirus symptoms: No Source History Provided: Patient Mode of arrival Mode of Arrival: Ambulatory Timing Onset of Chief Complaint: 04/03/25 PMH PMH Past Medical History: Yes Past Medical History: Diabetes, Dyslipidemia and Hypertension Past Medical History Comment: Staph infection Past Surgical History: Yes Surgical History: Appendectomy, , Cholecystectomy, Hysterectomy and Ortho Surgery Past Surgical History Comment: right big toe amputated, left second digit amputated Family History History of Family Medical Conditions: Yes Family Medical History: Diabetes Mellitus and Hypertension Social History Does patient currently use any type of tobacco product: No Have you used tobacco products in the last 12 months: No Type of Tobacco Use: Cigarettes Does any household member use tobacco: No Alcohol Use: None Do you use any recreational Drugs:: No Lives With: Spouse and Family Lives Where: Home Travel Risk Coronavirus risk:travel/contact w/high risk person: No Has patient experienced Coronavirus symptoms: No Infectious screening In the last 2 months have you had wt loss of >10#?: NO Have you had fever, night sweats or hemotysis?: No Have you traveled outside the country in the last 6 months?: No Isolation: Standard ROS Review of Systems Constitutional: No Symptoms Reported Eyes: No Symptoms Reported ENTM: No Symptoms Reported Respiratoy: No Symptoms Reported Cardiovascular: No Symptoms Reported Gastrointestinal/Abdominal: No Symptoms Reported Genitourinary: No Symptoms Reported Neurological: No Symptoms Reported Musculoskeletal: See HPI and Leg Integumentary: No Symptoms Reported Hematologic/Lymphatic: No Symptoms Reported Endocrine: No Symptoms Reported Psychiatric: No Symptoms Reported All Other Systems: Reviewed and Negative PE Vital Signs Vitals: Vital Signs Temperature 98.9 F Temperature 102.6 F Pulse Rate 107 Respiratory Rate 18 Respiratory Rate 18 Respiratory Rate 18 Blood Pressure [Left Arm] 169/79 Blood Pressure [Right Arm] 159/93 Blood Pressure 169/79 O2 Sat by Pulse Oximetry 97 O2 Sat by Pulse Oximetry 97 General Limitations: No Limitations General Appearance: Alert and In No Apparent Distress Head Head Exam: Normal Inspection Eyes Eye exam: Normal Appearance ENT ENT Exam: Normal Exam Neck Neck Exam: Normal Inspection Chest Chest Inspection: Normal Inspection Respiratory Respiratory Exam: Normal Lung Sounds Bilat Cardiovascular Cardiovascular Exam: Regular Rate and Normal Rhythm Abdominal Exam Abdominal Exam: Normal Inspection, Normal Bowel Sounds and Soft Extremities Extremities Exam: Normal Inspection Lower Extremities Lower Leg Exam: Tenderness, Swelling, Erythema and Other (Right anterior lower leg with redness cellulitis with blistering superior aspect) Back Back Exam: Normal Inspection Neurological Neurological Exam: Alert, Oriented X3 and CN II-XII Intact Psychiatric Psychiatric Exam: Normal Affect and Normal Mood Skin Skin Exam: Warm, Dry, Intact and Normal Color COURSE Treatment Treatment: Discussed with patient and family patient wishes to be admitted discussed with Dr. Meadows will admit [facility] Labs Reviewed 04/04/25 17:02 04/04/25 17:02 Laboratory: WBC 15.5 X10^3/uL (3.6-10.0) H 04/04/25 17:02 RBC 3.27 X10^6/uL (3.5-5.4) L 04/04/25 17:02 Hgb 9.3 g/dL (12.0-16.0) L 04/04/25 17:02 Hct 27.8 % (36.0-47.0) L 04/04/25 17:02 MCV 84.9 fL (80.0-100.0) 04/04/25 17:02 MCH 28.3 pg (27.0-34.0) 04/04/25 17:02 MCHC 33.4 g/dL (33.0-35.0) 04/04/25 17:02 RDW 13.4 % (11.6-16.5) 04/04/25 17:02 Plt Count 191 X10^3/uL (150.0-450.0) 04/04/25 17:02 MPV 10.1 fL (7.4-11.0) 04/04/25 17:02 Neut % (Auto) 78.0 % (42.0-75.0) H 04/04/25 17:02 Lymph % (Auto) 14.4 % (21.0-51.0) L 04/04/25 17:02 [place] % (Auto) 6.4 % (0.0-13.0) 04/04/25 17:02 Eos % (Auto) 0.5 % (0.9-2.9) L 04/04/25 17:02 Baso % (Auto) 0.7 % (0.2-1.0) 04/04/25 17:02 Neut # (Auto) 12.1 x10^3/uL (2.2-4.8) H 04/04/25 17:02 Lymph # (Auto) 2.2 X10^3/uL (1.3-2.9) 04/04/25 17:02 [place] # (Auto) 1.0 x10^3/uL (0.3-0.8) H 04/04/25 17:02 Eos # (Auto) 0.1 x10^3/uL (0.0-0.2) 04/04/25 17:02 Baso # (Auto) 0.1 X10^3/uL (0.0-0.1) 04/04/25 17:02 Absolute Nucleated RBC 0.1 /100WBC 04/04/25 17:02 Sodium 134 mmol/L (136-145) L 04/04/25 17:02 Corrected Sodium 138 mmol/L (136-145) 04/04/25 17:02 Potassium 4.3 mmol/L (3.5-5.1) 04/04/25 17:02 Chloride 99 mmol/L (98-107) 04/04/25 17:02 Carbon Dioxide 27.4 mmol/L (21-32) 04/04/25 17:02 BUN 34 mg/dL (7-18) H 04/04/25 17:02 Creatinine 1.75 mg/dL (0.55-1.02) H 04/04/25 17:02 Est GFR (MDRD) Af Amer 40 (>60) L 04/04/25 17:02 Est GFR (MDRD) Non-Af 33 (>60) L 04/04/25 17:02 Glucose 273 mg/dL (65-99) H 04/04/25 17:02 Lactic Acid 1.5 mmol/L (0.4-2.0) 04/04/25 17:02 Calcium 8.2 mg/dL (8.5-10.1) L 04/04/25 17:02 Corrected Calcium 9.6 mg/dL (8.5-10.1) 04/04/25 17:02 Total Bilirubin 0.60 mg/dL (0.2-1.0) 04/04/25 17:02 AST 35 Units/L (15-37) 04/04/25 17:02 ALT 36 Units/L (12-78) 04/04/25 17:02 Alkaline Phosphatase 120 Units/L (46-116) H 04/04/25 17:02 Total Protein 7.2 g/dL (6.4-8.2) 04/04/25 17:02 Albumin 2.2 g/dL (3.4-5.0) L 04/04/25 17:02 Globulin 5.0 g/dL (2.5-4.5) H 04/04/25 17:02 Albumin/Globulin Ratio 0.4 Ratio (1.1-2.1) L 04/04/25 17:02 Opioid Opioid Risk Tool Age (Meño box if 16-45): No History of Preadolescent Sexual Abuse: No Total: 0 Total Score Risk Category: Low Risk Copyright: Small predicting aberrant behaviors Discharge Plan Diagnosis Discharge Problem: Cellulitis, Diabetes, Hyperglycemia, Renal insufficiency Discharge Plan Patient Disposition: 09 ADMITTED INPATIENT Condition: Stable Prescriptions: No Action pioglitazone 45 mg Tablet 45 mg PO DAILY Qty: 30 3RF lisinopril 10 mg Tablet 20 mg PO DAILY Qty: 30 3RF fluticasone propionate 50 mcg/actuation [place],Suspension 2 spray ENOSTRIL DAILY Qty: 16 0RF atorvastatin 10 mg tablet 10 mg PO QDAY omeprazole 40 mg capsule,delayed release(DR/EC) 40 mg PO QDAY metformin 500 mg tablet extended release 24 hr 500 mg PO BID insulin lispro 100 unit/mL insulin pen See Rx Instructions .ROUTE .COMPLEX PRN Protocol: DEFINITY Protocol (med imaging) Condition: Echocardiogram - ultrasound contrast agent Condition: ... Condition: IV Push DILUTED (most common) Dose/Route: IV PUSH SLOW Instruction: https://www.wumo/using-definity Condition: IV Push + Saline Flush Dose/Route: IV PUSH SLOW Instruction: https://www.wumo/using-definity Condition: IV Infusion in NS 50 mL bag Dose/Route: IV DRIP Instruction: https://www.wumo/using-definity Protocol Text: Visit stem assembler website for official instructions & videos (activation, preparation, administration): https://www.wumo/usingPoderopedia Patient Comments: [NO ORIGINAL SIG] Rx Instructions: iss amlodipine 5 mg Tablet 5 mg PO QDAY Qty: 30 0RF pregabalin 200 mg capsule 200 mg PO BID Health Concerns: Post Hospitalization: new medications and changes needed to prevent readmission or further decline. Pt educated and given instructions on all concerns. Plan of Treatment: Continue with present treatment and follow up plan. Pt is to keep follow up appointment as instructed and take medications as ordered. Orders to Discharge Patient Discharge Orders: Transfer (Routine); Ordered 04/04/25 Ordered By: Abraham Moyer Follow ups/Referrals Follow ups/Referrals: JAKE DAVISON [Primary Care Provider, MEDICAL] - 3 days Instructions Print Language: SPANISH
[2025-04-04 17:26] LABS: MEAN PLATELET VOLUME 10.1 fL (7.4-11.0); RED CELL DISTRIBUTION WIDTH 13.4 % (11.6-16.5)
[2025-04-04 17:39] LABS: COR CA(FOR HYPOALB) 9.6 mg/dL (8.5-10.1); COR NA(FOR HYPERGLY) 138.0 mmol/L (136-145); CREATININE 1.75 mg/dL (0.55-1.02); eGFR NON BLACK RACES 33.0 (>60)
[2025-04-04] MEDS ORDERED: PRECEDEX INJ VIAL ONE (18:54)
[2025-04-04] MEDS ORDERED: ULTANE GAS IN ONE (18:54)
[2025-04-04] MEDS ORDERED: DIPRIVAN VIAL ONE (18:54)
[2025-04-04] MEDS ORDERED: XYLOCAINE 2 % (PLAIN) ONE (18:54)
[2025-04-04] MEDS ORDERED: KETAMINE HCL ONE ×3 (18:54)
[2025-04-04] MEDS: ZOSYN VIAL 3.375 GRAMS 3.375 G in NS 100 ML IV 100 ML IV SCH (19:10)
[2025-04-04] MEDS: NS 1,000 ML IV 1,000 ML IV ONE (19:10)
[2025-04-04 19:32] LABS: BLOOD/HEMOGLOBIN,URINE 5+ (NEGATIVE); LEUKOCYTE ESTERASE ,URINE NEGATIVE (NEGATIVE); NITRITES,URINE POSITIVE (NEGATIVE)
[2025-04-04 19:34] LABS: APPEARANCE,URINE SLIGHTLY HAZY (CLEAR)
[2025-04-04 19:48] LABS: SQUAMOUS EPITHELIAL CELL,UR FEW /HPF (NEGATIVE)
[2025-04-04] MEDS ORDERED: TYLENOL 325 MG TAB PO PRN (20:07)
[2025-04-04] MEDS ORDERED: CONSULT PHARMACY - POTASSIUM & MAGNESIUM XX SCH (20:07)
[2025-04-04] MEDS ORDERED: PATIENT'S HOME MEDICATION (Insulin Lispro 100 unit/mL insulin pen) PRN (20:07)
[2025-04-04 21:08] VITALS: BMI 35.4
[2025-04-04] MEDS: NovoLIN R (or HumuLIN R) SUBCUT PRN (22:00)
[2025-04-04] MEDS: GLUCOPHAGE XR 24-HR PO SCH (22:00)
[2025-04-04] MEDS: SNACK - Diabetic Appropriate PO SCH (22:10)
[2025-04-04] MEDS: NORCO 5/325 MG TAB PO PRN (22:10)
[2025-04-05] MEDS: ULTRAM PO PRN (01:20)
[2025-04-05] MEDS: MORPHINE SULFATE INJ 2 MG INJ IVP PRN (03:19)
[2025-04-05 05:35] LABS: MEAN PLATELET VOLUME 10.2 fL (7.4-11.0); RED CELL DISTRIBUTION WIDTH 13.3 % (11.6-16.5)
[2025-04-05 05:47] LABS: COR CA(FOR HYPOALB) 9.3 mg/dL (8.5-10.1); COR NA(FOR HYPERGLY) 138.0 mmol/L (136-145); CREATININE 2.19 mg/dL (0.55-1.02); eGFR NON BLACK RACES 25.0 (>60)
[2025-04-05] MEDS ORDERED: CONSULT PHARMACY - POTASSIUM & MAGNESIUM XX SCH ×2 (06:00→07:00)
[2025-04-05] MEDS: FLONASE NASAL SPRAY ENOSTRIL SCH (09:06)
[2025-04-05] MEDS: ACTOS PO SCH (09:08)
[2025-04-05] MEDS: FARXIGA PO SCH (09:08)
[2025-04-05] MEDS: LIPITOR TAB 10 MG PO SCH (09:09)
[2025-04-05] MEDS: NORVASC TAB 5 MG PO SCH (09:09)
[2025-04-05] MEDS: KLOR-CON 10 MEQ TAB PO NR (09:09)
[2025-04-05] MEDS: ZESTRIL TAB 10 MG PO SCH (09:09)
[2025-04-05] MEDS: MAG-OX TAB PO SCH (09:10)
[2025-04-05] MEDS: PROCRIT or EPOGEN VIAL 10,000 UNITS SC ONE (10:40)
[2025-04-05] MEDS: VANCOMYCIN IV *PREMIX 1.25 G/250 ML BAG 1.25 G/250 ML PIGGYBACK IV SCH (10:40)
[2025-04-05] MEDS: ZOFRAN INJ 4 MG VIAL IVP PRN (10:48)
[2025-04-05] MEDS: NS 1,000 ML IV 500 ML IV ONE (10:50)
[2025-04-05] MEDS ORDERED: MORPHINE SULFATE INJ 4 MG IVP PRN (17:03)
[2025-04-05] MEDS: TYLENOL 325 MG TAB PO PRN (20:35)
[2025-04-05] MEDS: MORPHINE SULFATE INJ 4 MG IVP PRN (22:01)
[2025-04-06 05:38] LABS: MEAN PLATELET VOLUME 10.4 fL (7.4-11.0); RED CELL DISTRIBUTION WIDTH 13.5 % (11.6-16.5)
[2025-04-06 05:54] LABS: COR CA(FOR HYPOALB) 9.5 mg/dL (8.5-10.1); COR NA(FOR HYPERGLY) 136.0 mmol/L (136-145); CREATININE 2.68 mg/dL (0.55-1.02); eGFR NON BLACK RACES 20.0 (>60)
[2025-04-06] MEDS ORDERED: CONSULT PHARMACY - POTASSIUM & MAGNESIUM XX SCH (07:00)
[2025-04-06] MEDS: NS 1,000 ML IV 500 ML IV ONE (08:53)
[2025-04-06] MEDS: POTASSIUM CHLORIDE LIQ PO ONE (08:55)
[2025-04-06] MEDS: MAG-OX TAB PO SCH (08:56)
[2025-04-06] MEDS: ALBUMIN HUMAN 25%- 100 ML 100 ML IV SCH (10:44)
[2025-04-06] MEDS: NS 1,000 ML IV 1,000 ML IV SCH (10:48)
[2025-04-06] MEDS: NS 250 ML IV 25 ML IV PRN (21:27)
[2025-04-07 05:53] LABS: MEAN PLATELET VOLUME 10.1 fL (7.4-11.0); RED CELL DISTRIBUTION WIDTH 13.7 % (11.6-16.5)
[2025-04-07 06:11] LABS: COR CA(FOR HYPOALB) 9.8 mg/dL (8.5-10.1); COR NA(FOR HYPERGLY) 139.0 mmol/L (136-145); CREATININE 2.19 mg/dL (0.55-1.02); eGFR NON BLACK RACES 25.0 (>60)
[2025-04-07] MEDS ORDERED: CONSULT PHARMACY - POTASSIUM & MAGNESIUM XX SCH (07:00)
[2025-04-07] MEDS: POTASSIUM CHLORIDE LIQ PO ONE (08:12)
[2025-04-07] MEDS: VISBIOME PROBIOTIC CAP 112.5 B or equivalent PO SCH (10:01)
[2025-04-07] MEDS: NORCO 10/325 TAB PO PRN (13:19)
--- NOTE | 2025-04-07 16:19 | CT ---
EXAM: RIGHT LOWER EXT W/O HISTORY: RIGHT LEG SWELLING, AND OPEN WOUND/BLISTER.REDNESS TO DYSON AREA; COMPARISON: No prior CT or MRI of the tibia/fibula region is available. TECHNIQUE: Non-contrast axial CT images of the right lower (from above the level of the knee joint to below the level of the ankle joint). Images were reformatted into coronal and sagittal planes for further evaluation. All CT scans at this facility use dose modulation, iterative reconstruction, and/or weight based dosing when appropriate to reduce radiation dose to as low as reasonably achievable. FINDINGS: Technical note: Without IV contrast, evaluation for abscess and fluid collections is significantly limited. Diffuse subcutaneous soft tissue edema along the entire imaged length of the lower leg from just above the knee joint to just below the ankle joint. No obvious evidence on this noncontrast exam of an organized drainable fluid collection or abscess. No evidence for soft tissue gas. No abnormalities of the muscle compartments are demonstrated. No acute osseous findings. IMPRESSION: See technical note above. Diffuse subcutaneous soft tissue edema along the entire imaged length of the lower leg from just above the knee joint to just below the ankle joint. No obvious evidence on this noncontrast exam of an organized drainable fluid collection or abscess. No evidence for soft tissue gas. THIS IS AN ELECTRONICALLY VERIFIED FINAL REPORT 04/07/2025 4:15 PM - Electronically signed by Van Camara DO
[2025-04-08 05:47] LABS: MEAN PLATELET VOLUME 9.6 fL (7.4-11.0); RED CELL DISTRIBUTION WIDTH 13.8 % (11.6-16.5)
[2025-04-08 05:59] LABS: COR CA(FOR HYPOALB) 9.9 mg/dL (8.5-10.1); COR NA(FOR HYPERGLY) 140.0 mmol/L (136-145); CREATININE 1.32 mg/dL (0.55-1.02); eGFR NON BLACK RACES 45.0 (>60)
[2025-04-08] MEDS ORDERED: CONSULT PHARMACY - POTASSIUM & MAGNESIUM XX SCH (07:00)
[2025-04-08] MEDS: PHENERGAN INJ 25 MG IM PRN (09:02)
[2025-04-08] MEDS: K-DUR TAB 20 MEQ PO ONE (09:09)
[2025-04-08] MEDS: PHARMACY COMMENT IV NR (09:17)
[2025-04-08 09:51] LABS: CREATININE 1.27 mg/dL (0.55-1.02)
[2025-04-09 05:46] LABS: MEAN PLATELET VOLUME 9.1 fL (7.4-11.0); RED CELL DISTRIBUTION WIDTH 13.7 % (11.6-16.5)
[2025-04-09 05:55] LABS: COR CA(FOR HYPOALB) 9.8 mg/dL (8.5-10.1); COR NA(FOR HYPERGLY) 144 mmol/L (136-145); CREATININE 1.19 mg/dL (0.55-1.02); eGFR NON BLACK RACES 51 (>60)
--- NOTE | 2025-04-09 07:55 | DR.CONSULT ---
CONSULT Consultation for Day of: Date: 04/09/25 Chief Complaint Chief Complaint: right leg pain Allergies Allergies Allergy/AdvReac Type Severity Reaction Status Date / Time No Known Drug Allergies Allergy Verified 03/29/25 10:17 History of Present Illness History of Present Illness: Ms. Dye is a 50 y/o female with uncontrolled diabetes, last A1c was 8.3% back on March 16, 2025. Patient states she came in on Saturday evening after worsening pain to the right leg. She states that she has been here for a few days. Podiatry service was contacted yesterday afternoon that she was in house. Patient said her leg developed a blister around Thanksgiving, doesn't remember any trauma to the area. She says the blister was draining, it feels extremely painful. Patient has been lethargic and not feeling like herself since it began. Past Medical History Past Medical History: Diabetes, Dyslipidemia and Hypertension Past Surgical History Surgical History: Appendectomy Family History Family Medical History: Diabetes Mellitus and Hypertension Social History Does patient currently use any type of tobacco product: No Have you used tobacco products in the last 12 months: No Type of Tobacco Use: None Does any household member use tobacco: No Alcohol Use: None Drug Use: None Medications Home Medications: No Known Drug Allergies Allergy (Verified 03/29/25 10:17) CONTINUE taking the following medications pregabalin 200 mg capsule 200 mg PO BID 04/04/25 [History] Physical Exam Vital Signs: Vital Signs Temperature 98.4 F Pulse Rate [Right Brachial] 91 Respiratory Rate 20 Blood Pressure [Right Arm] 154/68 O2 Sat by Pulse Oximetry 95 Patient is AOx3 Derm: Evidence of extensive necrotic tissue, bula and slough along the anterior medial tibial regions of the RLE> Areas of yellow-green purulence, serosanguinous drainage. Surrounding erythema extends proximal and distally. Skin breakdown with rapidly progressing necrosis, violaceous margins and significant tenderness- highly suspicious of necrotizing fasciitis, streaking noted proximally consistent with lymphangiitis spread. To the right hallux amputation site, a nonhealing surgical wound is noted with dehiscence. Fibrotic tissue preseent with exposed deep soft tissue and a hyperkeratotic rim. To the left foot, no concerns for infection or open wounds at this time. Vascular: DP/PT are faintly palpable due to swelling of the right foot and leg. Left DP/PT palpable, CFT is <3 sec to digits of left foot. Mild edema present to left foot Neuro: Protective sensation absent to b/l feet. Proprioception is impaired to b/l feet with none present to amputation sites. MSK: RIght hallux amputation site noted. Digit amputation present to left foot. Plan (1) Necrotizing fasciitis: Status: Acute Plan: Plan for OR for fasciotomies and debridement with bead placement urgently Will obtain cultures in OR Patient to continue on IV antibiotics Patient is high risk for limb loss and possible below knee amputation if infection is non-salvageable or systemic compromise progresses Please keep NPO for OR today Further reccs to follow
[2025-04-09] MEDS: PROCRIT or EPOGEN VIAL 10,000 UNITS SC ONE (08:24)
--- NOTE | 2025-04-09 09:38 | RAD ---
EXAM: CHEST, 1 VIEW HISTORY: PICC LINE PLACEMENT; DM APPY, MELCHOR, HYST, CSECTION COMPARISON: No relevant prior studies were available for comparison at the time of interpretation. TECHNIQUE: CHEST, 1 VIEW FINDINGS: Chest: Lines and tubes: Left upper extremity PICC is in satisfactory position Mediastinum: Cardiomegaly. Pulmonary vessels: There is pulmonary vascular congestion. Lung cotter: No suspicious airspace opacity. Pleura: No effusion. No pneumothorax. Bones and soft tissues: No acute osseous or soft tissue abnormality. IMPRESSION: 1. Findings suggest heart failure exacerbation 2. PICC line is in satisfactory position THIS IS AN ELECTRONICALLY VERIFIED FINAL REPORT 04/09/2025 9:32 AM - Electronically signed by Van Cherry MD
--- NOTE | 2025-04-09 10:26 | DR.UPDATE ---
H&P Update Prescription drug monitoring program results: PDMP was not reviewed H&P Reviewed: Yes Any changes to H&P?: No Patient was examined?: Yes Vital Signs: Temp Pulse Resp BP Pulse Ox O2 Del Method O2 Flow Rate 04/09/25 08:00 98.3 F 91 H 18 156/74 95 Room Air 04/09/25 07:00 Room Air 04/09/25 03:49 98.4 F 91 H 20 154/68 95 Room Air 04/08/25 23:27 98.2 F 92 H 20 150/67 97 Room Air 04/08/25 20:00 Room Air 04/08/25 20:00 98.7 F 93 H 20 152/70 97 Room Air 04/08/25 19:00 Room Air 04/08/25 16:00 98.4 F 92 H 17 150/72 96 Room Air 04/08/25 12:00 98.4 F 86 16 137/65 97 Room Air 04/08/25 09:46 Room Air 04/08/25 08:45 Room Air 2 04/08/25 07:54 98.4 F 95 H 18 148/67 96 Room Air 04/08/25 07:00 Room Air 04/08/25 03:39 98.3 F 94 H 20 152/68 97 Room Air 04/08/25 00:00 99 F 97 H 16 143/65 94 L Room Air 04/07/25 22:35 Nasal Cannula 2 04/07/25 21:43 18 04/07/25 21:13 18 04/07/25 20:00 98.9 F 99 H 20 159/72 95 Room Air 04/07/25 19:00 Room Air 04/07/25 16:00 98.4 F 90 18 126/60 95 Nasal Cannula 2 04/07/25 14:19 18 04/07/25 13:19 18 04/07/25 11:52 98.4 F 92 H 18 130/60 95 Nasal Cannula 2 04/07/25 09:02 Room Air 2 04/07/25 08:00 98.3 F 109 H 16 158/73 93 L Nasal Cannula 2 04/07/25 07:00 Room Air 04/07/25 04:00 97.5 F L 84 19 130/62 97 Nasal Cannula 2 04/07/25 02:38 20 04/07/25 02:08 18 04/07/25 00:23 19 04/07/25 00:10 97 Nasal Cannula 2 04/07/25 00:07 Nasal Cannula 2 04/06/25 23:53 99.8 F H 104 H 20 142/65 90 L Room Air 04/06/25 23:23 16 04/06/25 20:00 99.5 F 99 H 21 156/70 92 L Room Air 04/06/25 19:00 Room Air 04/06/25 17:30 20 04/06/25 16:30 20 04/06/25 15:54 99.2 F 100 H 20 133/68 94 L Room Air 04/06/25 12:00 98.6 F 82 20 116/58 94 L Room Air 04/06/25 11:43 20 04/06/25 10:43 20 FiO2 04/09/25 08:00 04/09/25 07:00 04/09/25 03:49 04/08/25 23:27 04/08/25 20:00 04/08/25 20:00 04/08/25 19:00 04/08/25 16:00 04/08/25 12:00 04/08/25 09:46 04/08/25 08:45 28 04/08/25 07:54 04/08/25 07:00 04/08/25 03:39 04/08/25 00:00 04/07/25 22:35 28 04/07/25 21:43 04/07/25 21:13 04/07/25 20:00 04/07/25 19:00 04/07/25 16:00 04/07/25 14:19 04/07/25 13:19 04/07/25 11:52 04/07/25 09:02 28 04/07/25 08:00 04/07/25 07:00 04/07/25 04:00 04/07/25 02:38 04/07/25 02:08 04/07/25 00:23 04/07/25 00:10 04/07/25 00:07 28 04/06/25 23:53 04/06/25 23:23 04/06/25 20:00 04/06/25 19:00 04/06/25 17:30 04/06/25 16:30 04/06/25 15:54 04/06/25 12:00 04/06/25 11:43 04/06/25 10:43 Procedures (ALL) - Central Line Placement PCM.CLCO: written consent Time out performed: Yes Patient placed pm monitor/pulse ox: Yes MD prep: mask, gown, gloves, other Centrial line prep: chlorhexidine scrub, sterile drapes applied Local anesthsia used: lidocane 1% Ultrasound used for placement: Yes (left basilic v id'd via u/s and cannulation visualized) Central line lumen ininserted: double (5.5fr arrowgard. trimmed to 46cm with 5cm exposed) Post procedure: good blood return, all ports aspirated, flushed,capped, sterile dressing applied Post procedure xray: tip oc catheter in good position (appears svc; satisfactory position" per radiology report), no pneumothorax seen Patient tolerated procedure: Yes Complications: none
[2025-04-09] MEDS: ZOFRAN INJ 4 MG VIAL ONE (14:35)
[2025-04-09] MEDS: FENTANYL VIAL INJ 100 mcg ONE (14:35)
[2025-04-09] MEDS: VERSED ONE (14:35)
[2025-04-09] MEDS: XYLOCAINE 2 % (PLAIN) ONE (14:36)
[2025-04-09] MEDS: DIPRIVAN VIAL 20 ML ONE (14:36)
[2025-04-09] MEDS: NS 1,000 ML IV 100 ML IV PRN (15:00)
[2025-04-09] MEDS: NS 100 ML IV 100 ML ONE (15:11)
[2025-04-09] MEDS: ANCEF VIAL 1 GRAM ONE (15:21)
[2025-04-09] MEDS: NS 1,000 ML IV 1,000 ML ONE (15:21)
[2025-04-09] MEDS: ZOFRAN INJ 4 MG VIAL IVP PRN (15:25)
[2025-04-09] MEDS: VERSED IVP PRN (15:31)
[2025-04-09] MEDS: FENTANYL VIAL INJ 100 mcg IVP PRN (15:38)
[2025-04-09] MEDS: PRECEDEX INJ VIAL IVP PRN (15:45)
[2025-04-09] MEDS: DIPRIVAN VIAL 250 ML IVP PRN (15:45)
[2025-04-09] MEDS: BETADINE SOLN ONE (15:45)
[2025-04-09] MEDS: KETAMINE HCL IV PRN (15:45)
[2025-04-09] MEDS: MARCAINE 0.25% INJ ONE (16:04)
[2025-04-09] MEDS: VANCOMYCIN HCL ONE (16:04)
[2025-04-09] MEDS ORDERED: DILAUDID INJ IVP PRN (16:05)
[2025-04-09] MEDS ORDERED: REGLAN INJ 10 MG VIAL IVP PRN (16:05)
[2025-04-09] MEDS ORDERED: BARHEMSYS INJ IVP PRN (16:05)
[2025-04-09] MEDS ORDERED: BENADRYL INJ 50 MG VIAL IVP PRN (16:05)
[2025-04-09] MEDS ORDERED: ZOFRAN INJ 4 MG VIAL IVP PRN (16:05)
[2025-04-10 05:32] LABS: MEAN PLATELET VOLUME 8.6 fL (7.4-11.0); RED CELL DISTRIBUTION WIDTH 14.0 % (11.6-16.5)
[2025-04-10 05:38] LABS: COR CA(FOR HYPOALB) 9.7 mg/dL (8.5-10.1); COR NA(FOR HYPERGLY) 144 mmol/L (136-145); CREATININE 1.05 mg/dL (0.55-1.02); eGFR NON BLACK RACES 59 (>60)
--- NOTE | 2025-04-10 05:51 | MD.NOTE ---
Provider Note Note Note: S: Patient was seen and examined at bedside. patient states that the pain medication barely has helped her since the procedure. She denies any chest pain and shortness of breath at this time O: Dressing is clean dry and intact. No strikethrough appreciated A: Patient is 50 y/o female with diabetes, s/p fasciotomy of RLE and debridement of right hallux amputation site due to necrotizing fasciitis of the right leg and nonhealing wound to hallux amp site. P: - Patient will require return to OR on Saturday morning at 7:30 AM for a repeat washout - Patient likely to undergo multiple procedures in the future, including possible skin graft outpatient - Cultures taken in OR, will follow those- please continue you on IV antibiotics; patient will likely be discharged with course of antibiotics as PICC line was placed as well - Did discuss the salvageability of patients leg with her- will continue to monitor her progression at this time and did discuss there was no muscle involvement - Please keep patient NPO at midnight on Saturday into Saturday for her procedure Please contact with any questions! Dr. Tosin Coon
[2025-04-10] MEDS ORDERED: NS 250 ML IV 250 ML IV ONE (14:34)
[2025-04-11] MEDS: CATAPRES TAB 0.1 MG PO ONE ×2 (05:56→20:52)
[2025-04-11 08:42] LABS: MEAN PLATELET VOLUME 8.0 fL (7.4-11.0); RED CELL DISTRIBUTION WIDTH 14.0 % (11.6-16.5)
[2025-04-11 08:50] LABS: COR CA(FOR HYPOALB) 9.5 mg/dL (8.5-10.1); CREATININE 0.99 mg/dL (0.55-1.02); eGFR NON BLACK RACES > 60 (>60)
[2025-04-11 10:29] LABS: BAND NEUTROPHILS % 2 % (0-10); METAMYELOCYTES % 2; PLATELET MORPHOLOGY COMMENT NORMAL (NORMAL)
[2025-04-11] MEDS: NORVASC TAB 5 MG PO ONE (13:59)
[2025-04-11] MEDS: ZESTRIL TAB 20 MG PO ONE (14:00)
[2025-04-11] MEDS: NS 250 ML IV 250 ML IV ONE (15:30)
--- NOTE | 2025-04-11 20:50 | EKG ---
Test Reason : hypertension protocol Blood Pressure : */* mmHG Vent. Rate : 86 BPM Atrial Rate : 86 BPM P-R Int : 132 ms QRS Dur : 78 ms QT Int : 370 ms P-R-T Axes : 56 -5 17 degrees QTc Int : 442 ms Normal sinus rhythm Low voltage QRS Possible Anterolateral infarct (cited on or before 21-FEB-2024) Abnormal ECG When compared with ECG of 15-MAR-2025 08:22, Questionable change in initial forces of Anterolateral leads Nonspecific T wave abnormality now evident in Inferior leads Confirmed by Galen Bowie MD ([id number]) on 04/12/2025 7:41:31 AM Referred By: Confirmed By: Galen Bowie MD
[2025-04-11] MEDS: APRESOLINE INJ 20 MG VIAL IVP ONE (22:40)
[2025-04-12] MEDS: APRESOLINE INJ 20 MG VIAL ONE (02:29)
[2025-04-12] MEDS ORDERED: HIBICLENS WASH ONE (04:04)
[2025-04-12] MEDS: HIBICLENS WASH EXT ONE (04:12)
[2025-04-12] MEDS: CATAPRES TAB 0.1 MG PO ONE (04:59)
[2025-04-12 05:09] LABS: MEAN PLATELET VOLUME 8.0 fL (7.4-11.0); RED CELL DISTRIBUTION WIDTH 14.3 % (11.6-16.5)
[2025-04-12 05:23] LABS: COR CA(FOR HYPOALB) 9.4 mg/dL (8.5-10.1); CREATININE 1.11 mg/dL (0.55-1.02); eGFR NON BLACK RACES 55 (>60)
[2025-04-12 05:55] LABS: PLATELET MORPHOLOGY COMMENT NORMAL (NORMAL)
[2025-04-12] MEDS: APRESOLINE INJ 20 MG VIAL IVP ONE ×2 (06:14→17:11)
[2025-04-12] MEDS: ZOFRAN INJ 4 MG VIAL ONE (07:17)
[2025-04-12] MEDS: DIPRIVAN VIAL 20 ML ONE (07:17)
[2025-04-12] MEDS: XYLOCAINE 1 % (PLAIN) ONE (07:17)
[2025-04-12] MEDS: REGLAN INJ 10 MG VIAL ONE (07:17)
[2025-04-12] MEDS: MARCAINE 0.5% ONE (07:17)
[2025-04-12] MEDS: PEPCID 20 MG VIAL ONE (07:18)
[2025-04-12] MEDS: FENTANYL VIAL INJ 100 mcg ONE (07:21)
[2025-04-12] MEDS: NS 1,000 ML IV 1,000 ML ONE (07:21)
[2025-04-12] MEDS: VERSED ONE (07:21)
[2025-04-12] MEDS: NS 500 ML IV 500 ML IV ONE (07:22)
[2025-04-12] MEDS: ANCEF VIAL 1 GRAM ONE (07:27)
[2025-04-12] MEDS: NS 100 ML IV 100 ML ONE (07:27)
[2025-04-12] MEDS: NS 1,000 ML IV 300 ML IV PRN (07:30)
[2025-04-12] MEDS: VERSED IVP PRN (07:40)
[2025-04-12] MEDS: ZOFRAN INJ 4 MG VIAL IVP PRN (07:41)
[2025-04-12] MEDS: PEPCID 20 MG VIAL IVP PRN (07:42)
[2025-04-12] MEDS: REGLAN INJ 10 MG VIAL IVP PRN (07:45)
[2025-04-12] MEDS: ANCEF VIAL 1 GRAM IV PRN (07:48)
[2025-04-12] MEDS: BETADINE SOLN ONE ×2 (07:54→08:16)
[2025-04-12] MEDS: XYLOCAINE 2 % (PLAIN) IVP PRN (07:54)
[2025-04-12] MEDS: DIPRIVAN VIAL 100 ML IVP PRN (07:55)
[2025-04-12] MEDS: KETAMINE HCL IVP PRN (07:55)
[2025-04-12] MEDS: FENTANYL VIAL INJ 100 mcg IVP PRN (08:02)
[2025-04-12] MEDS: VANCOMYCIN HCL ONE (08:06)
[2025-04-12] MEDS: OFIRMEV IV 1000 MG VIAL 1,000 MG/100 ML VIAL IV ONE (08:12)
[2025-04-12] MEDS: DECADRON INJ ONE (08:13)
[2025-04-12] MEDS: OFIRMEV IV 1000 MG VIAL 1,000 MG/100 ML VIAL IV PRN (08:13)
[2025-04-12] MEDS: DECADRON INJ IVP PRN (08:14)
[2025-04-12 09:12] LABS: CREATININE 0.98 mg/dL (0.55-1.02)
--- NOTE | 2025-04-12 09:58 | DR.OPNOTE ---
OP NOTE Pre-Op Diagnosis: necrotizing fasciitis, right lower extremity Post-Op Diagnosis: necrotizing fasciitis, right lower extremity Procedure Date Date Of Procedure: 04/12/25 Procedure: repeat washout of RLE and wound vac application, RLE Anesthesia Comment: MAC Findings: Surgeon: Dr. Tosin Coon Marine Mammal Trainer: None Hemostasis: No tourniquet used Anesthesia: IV Sedation with local anesthesia Injectables 20 cc of 1:1 mixture of 1% Lidocaine and 0.25% Marcaine plain Materials used Black wound vac, 3-0 Nylon Description: The patient presented to the pre-operative holding area having been NPO since midnight. History and physical and all preoperative studies were reviewed and there were no contraindications to the proposed procedure. The patient confirmed the procedure to be performed. The risks and benefits of the procedure were again discussed with the patient prior to the procedure and the patient verbalized understanding. The right operative site was then marked. Un norma mild sedation, the patient was transferred from the preoperative area to the operating room, placed on the operating table in a supine position. IV sedation was administered by the anesthesia team. The appropriate anesthetics were administered and supplemented with a total of 20 ccs of 1:1 mixture of 1% lidocaine and 0.5% Marcaine in a gia block fashion to the right leg. The right lower extremity was then prepped and draped in the usual sterile fashion. A timeout was performed to verify the correct patient, procedure, and extremities. Attention was directed to the anterior leg where a 15cm incision was noted from previous fasciotomy on 04/09/25, specifically to the anterior compartment of the leg. The previous incision had been made down through the skin and subcutaneous tissue. This was reexamined today. No purulence was encountered with manual compression. No fluctuance was noted to the surrounding compartments. There continues to be necrotic tissue within some of the remaining fat between the skin and the anterior compartment. I did debride all tissue with a rongeur and hemostat. I then irrigated the surgical site with Prontosan. Once irrigated, I examined the muscle- The muscle did continue to appear to be beefy red. There did not appear to be any necrosis of the muscle in this region. No extension to the tibialis anterior tendon or the extensor compartment is appreciated. The skin edges are noted to have minor changes secondarily to the infection, if this continues this will likely necrose away and require further surgery in the future. I once again irrigated the surgical site. I applied 1 g of vancomycin powder to the site. Utilizing 3-0 Nylon I did reapproximate the most proximal and most distal ends. The central aspect of the wound will remain open and a black wound vac foam was applied to this site. Post-operative dressings included wound vac, abds, soft roll and an miguel wrap. The right hallux amputation site was examined at this time and appeared to have some maceration noted but no other concerns. Betadine, 4x4's, abd, webril and an miguel wrap were applied to this area. The patient tolerated the procedure and anesthesia well and was taken from the OR and placed in recovery with vital signs stable and vascular status intact to the right lower extremity. Patient is to be transferred back to inpatient floors for continued medical management. Would recommend patient to go home with wound vac and return to the hospital three days a week for wound vac changes if able. Patient will also require [facility] IV antibiotics through her PICC line- would recommend Imipenem if able. Specimen/Pathology: None EBL: 20 cc Drains/Tubes Placed: None Hardware: None Cultures: None Complications:: None Needle/Sponge Count:: n/a Disposition/Condition: Pt. tolerated procedure without difficulty. Extubated in the OR and taken to PACU in stable condition.
[2025-04-13] MEDS: PHENERGAN INJ 25 MG IM PRN (01:22)
[2025-04-13] MEDS: PROCRIT or EPOGEN VIAL 10,000 UNITS SC ONE (10:09)
[2025-04-13] MEDS: LINZESS PO STA (10:16)
[2025-04-13] MEDS: DULCOLAX SUPPOSITORY 10 MG RECTAL ONE (10:16)
[2025-04-14 05:38] LABS: MEAN PLATELET VOLUME 7.3 fL (7.4-11.0); RED CELL DISTRIBUTION WIDTH 14.5 % (11.6-16.5)
--- NOTE | 2025-04-14 05:41 | EKG ---
Test Reason : chest pain Blood Pressure : */* mmHG Vent. Rate : 95 BPM Atrial Rate : 95 BPM P-R Int : 140 ms QRS Dur : 82 ms QT Int : 362 ms P-R-T Axes : 58 0 53 degrees QTc Int : 454 ms Normal sinus rhythm Nonspecific T wave abnormality Abnormal ECG When compared with ECG of 11-APR-2025 20:46, Borderline criteria for Anterior infarct are no longer present Borderline criteria for Anterolateral infarct are no longer present Confirmed by Galen Bowie MD ([id number]) on 04/14/2025 7:18:26 AM Referred By: Confirmed By: Galen Bowie MD
[2025-04-14 05:52] LABS: COR CA(FOR HYPOALB) 9.5 mg/dL (8.5-10.1); COR NA(FOR HYPERGLY) 147 mmol/L (136-145); CREATININE 1.01 mg/dL (0.55-1.02); eGFR NON BLACK RACES > 60 (>60)
[2025-04-14] MEDS ORDERED: CONSULT PHARMACY - POTASSIUM & MAGNESIUM XX SCH (07:00)
[2025-04-14] MEDS ORDERED: K-DUR TAB 20 MEQ PO SCH (09:00)
[2025-04-14] MEDS ORDERED: PHENERGAN INJ 25 MG IM PRN (09:03)
[2025-04-14] MEDS ORDERED: K-RIDER 10 MEQ/100 ML WATER 10 MEQ/100 ML BAG IV ONE (10:48)
[2025-04-14] MEDS: MAGNESIUM SULFATE 1 GRAM/100 mL PREMIX 1 G/100 ML BAG IV SCH (10:54)
--- NOTE | 2025-04-14 11:07 | NOTE.SOAP ---
Soap Note Note for Day of Date of Exam: 04/14/25 Subjective Data Subjective Data: Patient was seen and examined at bedside. Patient is still suffering from nausea and unable to hold down any food. Primary care switched nausea medication. Objective Data Objective Data: To the right leg, the fasciotomy site is extremely guarded at this time. There continues to be changes from the infection the fascial layer and the skin edges appear to be dying off. Telecom Network Manager like fluid is draining from the leg that is brown and watery at this time. The right hallux amputation site is stable at this time. Assessment Assessment: Necrotizing fasciitis, right leg Dehiscence, right hallux amp site Patient is post op fasciotomy Right leg with repeat washout and wound vac application to right leg, debridement of hallux amp site and antibiotic bead placement. Plan Plan: - Patient will return to the OR tomorrow for a repeat washout around lunchtime and antibiotic placement - Patients healing to the right leg is guarded at this time, she is still high risk for limb loss - Patient will need wound vac and will return to ED for a couple of weeks for wound vac changes and right foot dressing changes; she will likely need a skin graft in the future as she heals - Patient will need to be changed to IV Imipenem, should be discharged on this - Please keep NPO at midnight Please contact with any questions! Dr. Tosin Coon
[2025-04-14] MEDS: MAG-OX TAB PO SCH (11:22)
[2025-04-14] MEDS: K-RIDER 10 MEQ/100 ML WATER 10 MEQ/100 ML BAG IV SCH (12:00)
[2025-04-14] MEDS ORDERED: REGLAN INJ 10 MG VIAL IVP PRN (15:59)
[2025-04-14] MEDS ORDERED: CATAPRES TAB 0.1 MG ONE (22:23)
[2025-04-14] MEDS: CATAPRES TAB 0.1 MG PO ONE (22:25)
[2025-04-15 05:36] LABS: MEAN PLATELET VOLUME 7.0 fL (7.4-11.0); RED CELL DISTRIBUTION WIDTH 14.3 % (11.6-16.5)
[2025-04-15 05:37] LABS: COR CA(FOR HYPOALB) 9.3 mg/dL (8.5-10.1); COR NA(FOR HYPERGLY) 149 mmol/L (136-145); CREATININE 0.90 mg/dL (0.55-1.02); eGFR NON BLACK RACES > 60 (>60)
[2025-04-15] MEDS: HIBICLENS WASH EXT ONE (05:39)
[2025-04-15] MEDS ORDERED: CONSULT PHARMACY - POTASSIUM & MAGNESIUM XX SCH (07:00)
--- NOTE | 2025-04-15 08:28 | RAD ---
EXAM: ACUTE ABDOMEN SERI ES HISTORY: vomiting. avoid underpenetration; COMPARISON: Chest x-ray dated 04/09/2025 TECHNIQUE: AP chest; AP abdomen, supine and upright FINDINGS: Left upper extremity PICC tip over the low SVC. Stable cardiac silhouette. Pulmonary vascular engorgement. Increased hazy perihilar opacities. No large pleural effusion or visible pneumothorax. Scattered air-filled small and large bowel loops throughout the abdomen without abnormal distention. Metallic surgical clips in the right hemiabdomen. No free peritoneal air. No significant colonic stool burden. IMPRESSION: 1. Increased hazy perihilar opacities, suspicious for pulmonary edema. 2. Nonobstructive bowel gas pattern. THIS IS AN ELECTRONICALLY VERIFIED FINAL REPORT 04/15/2025 8:25 AM - Electronically signed by Tk Ramos MD
[2025-04-15] MEDS: MULTIHANCE INJ VIAL IVP NR (10:30)
[2025-04-15] MEDS: DANTRIUM IVP PRN (11:05)
--- NOTE | 2025-04-15 11:42 | MRI ---
EXAM: EXT LOWER NON-JOINT W&W/O CON HISTORY: NECROTIZING FASCITIS, RLE, RIGHT LOWER LEG, DOCTOR STATED THEY WANTED TO EVAL THE RIGHT LOWER LEG FROM RIGHT BELOW MID TIB-FID TO ABOVE THE ANKLE. CONTRAST-MULTIHANCE 20CC PICC LINE (HAND INJECTION) ; COMPARISON: CT dated 04/07/2025 TECHNIQUE: Multi planar series were obtained without and with IV contrast. FINDINGS: Exam degraded by patient motion artifact as well as wrap artifact. MUSCLES, TENDONS, AND SOFT TISSUES: Anterolateral right lower extremity cutaneous and subcutaneous ulcer extends to the right calf anterior compartment muscle superficial fascia. There is moderate surrounding subcutaneous edema with poorly organized subcutaneous fluid that measures approximately 4 x 0.5 x 12.4 cm and appears to communicate with the skin surface. Mild adjacent superficial fascial enhancement. There is also underlying anterior compartment muscle edema and enhancement. BONE/JOINTS: No areas of abnormal marrow edema or enhancement. No evidence of cortical destruction or marrow replacement. IMPRESSION: 1. Anterolateral cutaneous/subcutaneous wound with underlying cellulitis and poorly organized 4 x 0.5 x 12.4 cm fluid that appears to communicate with the skin surface and extends along the anterior compartment superficial fascia. There is associated mild superficial fascial enhancement with anterior compartment muscle edema and enhancement, concerning for myositis and fasciitis. 2. No evidence of osteomyelitis. THIS IS AN ELECTRONICALLY VERIFIED FINAL REPORT 04/15/2025 11:39 AM - Electronically signed by Tk Ramos MD
[2025-04-15] MEDS: VERSED ONE (12:39)
[2025-04-15] MEDS: FENTANYL VIAL INJ 100 mcg ONE (12:40)
[2025-04-15] MEDS: DIPRIVAN VIAL 20 ML ONE ×2 (12:40→14:07)
[2025-04-15] MEDS: ZOFRAN INJ 4 MG VIAL ONE (12:43)
[2025-04-15] MEDS: REGLAN INJ 10 MG VIAL ONE (12:43)
[2025-04-15] MEDS: PEPCID 20 MG VIAL ONE (12:47)
[2025-04-15] MEDS: ZOFRAN INJ 4 MG VIAL IVP PRN (13:00)
[2025-04-15] MEDS: REGLAN INJ 10 MG VIAL IVP PRN (13:00)
[2025-04-15] MEDS: NS 1,000 ML IV 400 ML IV PRN (13:00)
[2025-04-15] MEDS: PEPCID 20 MG VIAL IVP PRN (13:00)
[2025-04-15] MEDS: NS 1,000 ML IV 1,000 ML ONE (13:14)
[2025-04-15] MEDS: BETADINE SOLN ONE (13:14)
[2025-04-15] MEDS: VERSED IVP PRN (13:18)
[2025-04-15] MEDS: KETAMINE HCL IV PRN (13:19)
[2025-04-15] MEDS: MARCAINE 0.25% INJ ONE (13:26)
[2025-04-15] MEDS: VANCOMYCIN HCL ONE (13:26)
[2025-04-15] MEDS: TOBRAMYCIN SULFATE ONE (13:26)
[2025-04-15] MEDS: FENTANYL VIAL INJ 100 mcg IVP PRN (14:15)
[2025-04-15] MEDS: MAGNESIUM SULFATE 1 GRAM/100 mL PREMIX 1 G/100 ML BAG IV SCH (15:23)
[2025-04-15 16:49] LABS: MEAN PLATELET VOLUME 7.0 fL (7.4-11.0); RED CELL DISTRIBUTION WIDTH 15.2 % (11.6-16.5)
[2025-04-15] MEDS: K-RIDER 10 MEQ/100 ML WATER 10 MEQ/100 ML BAG IV SCH (17:37)
[2025-04-15 18:04] LABS: PLATELET MORPHOLOGY COMMENT NORMAL (NORMAL)
--- NOTE | 2025-04-15 18:29 | DR.OPNOTE ---
OP NOTE Pre-Op Diagnosis: necrotizing fasciitis, right leg Post-Op Diagnosis: necrotizing fasciitis, right leg Procedure Date Date Of Procedure: 04/15/25 Procedure: incision and draingage to muscle, antibiotic bead placement, Right Leg Type of Anesthesia: Local Findings: Surgeon: Dr. Tosin Coon Resource Center Teacher: None Hemostasis: No tourniquet used Anesthesia: IV Sedation with local anesthesia Injectables 20 cc of 0.25% Marcaine plain Materials used 3-0 Nylon, Antibiotic beads mixed with Vancomycin and Tobramycin Description: The patient presented to the pre-operative holding area having been NPO since midnight. History and physical and all preoperative studies were reviewed and there were no contraindications to the proposed procedure. The patient confirmed the procedure to be performed. The risks and benefits of the procedure were again discussed with the patient prior to the procedure and the patient verbalized understanding. The right operative site was then marked. Under mild sedation, the patient was transferred from the preoperative area to the operating room, placed on the operating table in a supine position. IV sedation was administered by the anesthesia team. The appropriate anesthetics were administered and supplemented with a total of 20 ccs of 1:1 mixture of 1% lidocaine and 0.5% Marcaine in a gia block fashion to the right leg. The right lower extremity was then prepped and draped in the usual sterile fashion. A timeout was performed to verify the correct patient, procedure, and extremities. Attention was directed to the anterior leg where a 15cm incision was noted from previous fasciotomy on 04/09/25, specifically to the anterior compartment of the leg. The previous incision had been made down through the skin and subcutaneous tissue. This was reexamined today. MRI had been reviewed prior to procedure and clinical examination revealed that the fascia layer over the muscle layer had changes noted that were consistent with necrotic, unhealthy tissue from the infection. Active drainage was noted as well consistent with brown gas examiner like consistency noted previously. Utilizing a fresh #15 blade, the incision was extended both proximally and distally to expose the entire anterior compartment of the right leg. Utilizing a blade, the fascia layer was removed from the overlying muscle belly. The tissue was extremely brown and appeared infected. The muscle lying below did appear healthy at this time. I then irrigated the surgical site with prontosan. I then compressed all of the compartments and there appeared to be no draining appreciated at this time. Next, I placed antibiotic beads in a bead like fashion on an easy whip stitch and laid them in the open surgical area. Utilizing 3-0 Nylon I did reapproximate the most proximal and most distal ends. The central aspect of the wound will remain open for drainage purposes. Please note that all bleeders that were encountered were appropriately cut, cauterizerized or retracted as needed. The right hallux amputation site was examined prior to start of the procedure and appears to be healing well with no maceration noted, no redness and no pur ulence- stitches are still noted to be intact at this time. Betadine, 4x4's, abd, webril and an miguel wrap were applied to this area. The patient tolerated the procedure and anesthesia well and was taken from the OR and placed in recovery with vital signs stable and vascular status intact to the right lower extremity. Patient is to be transferred back to inpatient floors for continued medical management. Due to the significant nature of the infection, patient is still a high risk for limb loss. We will continue to monitor this patient. She may require a wound vac still and will reevaluate the surgical site this weekend for reapplication if deemed appropriate. Specimen/Pathology: none EBL: 150 cc Drains/Tubes Placed: None Hardware: none Cultures: none Complications:: none Needle/Sponge Count:: n/a Disposition/Condition: Pt. tolerated procedure without difficulty. Extubated in the OR and taken to PACU in stable condition.
[2025-04-16] MEDS: MULTIHANCE INJ VIAL ONE (00:07)
[2025-04-16] MEDS: BARHEMSYS INJ ONE (00:07)
[2025-04-16] MEDS: K-DUR TAB 20 MEQ PO SCH (00:08)
[2025-04-16] MEDS: MAG-OX TAB PO SCH (00:09)
[2025-04-16] MEDS ORDERED: HIBICLENS WASH EXT ONE (05:00)
[2025-04-16 05:54] LABS: MEAN PLATELET VOLUME 7.3 fL (7.4-11.0); RED CELL DISTRIBUTION WIDTH 14.4 % (11.6-16.5)
[2025-04-16 06:07] LABS: COR CA(FOR HYPOALB) 9.2 mg/dL (8.5-10.1); COR NA(FOR HYPERGLY) 147 mmol/L (136-145); CREATININE 0.86 mg/dL (0.55-1.02); eGFR NON BLACK RACES > 60 (>60)
--- NOTE | 2025-04-16 06:30 | EKG ---
Test Reason : Per Hypertension Protocol Blood Pressure : */* mmHG Vent. Rate : 93 BPM Atrial Rate : 93 BPM P-R Int : 170 ms QRS Dur : 76 ms QT Int : 340 ms P-R-T Axes : 53 -4 5 degrees QTc Int : 422 ms Normal sinus rhythm Possible Left atrial enlargement Low voltage QRS Borderline ECG When compared with ECG of 14-APR-2025 05:37, No significant change was found Confirmed by Galen Bowie MD ([id number]) on 04/16/2025 7:46:35 AM Referred By: Confirmed By: Galen Bowie MD
[2025-04-16] MEDS ORDERED: CONSULT PHARMACY - POTASSIUM & MAGNESIUM XX SCH (08:00)
[2025-04-16] MEDS: NS + KCL 20 MEQ/L 1,000 ML IV SCH (08:58)
[2025-04-16] MEDS: CATAPRES TAB 0.1 MG PO ONE (09:10)
[2025-04-16] MEDS: PROCRIT or EPOGEN VIAL 10,000 UNITS SC ONE (10:02)
[2025-04-16 20:55] LABS: CREATININE 0.77 mg/dL (0.55-1.02)
[2025-04-17 07:00] LABS: MEAN PLATELET VOLUME 7.4 fL (7.4-11.0); RED CELL DISTRIBUTION WIDTH 14.8 % (11.6-16.5)
[2025-04-17 07:17] LABS: COR CA(FOR HYPOALB) 9.1 mg/dL (8.5-10.1); COR NA(FOR HYPERGLY) 147 mmol/L (136-145); CREATININE 0.78 mg/dL (0.55-1.02); eGFR NON BLACK RACES > 60 (>60)
[2025-04-17] MEDS ORDERED: CONSULT PHARMACY - POTASSIUM & MAGNESIUM XX SCH (08:00)
--- NOTE | 2025-04-17 08:14 | MD.NOTE ---
Provider Note Note Note: S: Patient was seen and examined at bedside. patient is still experiencing some nausea. She states she has only been able to have some gatorade. She isn't in any acute pain to her right lower extremity. She is coughing a little bit, but no chest pain. O: Right leg was examined. Proximal and distal incision sites are closed and intact. About 16 cm of incision site is open. Antibiotic beads were removed today. Anterior compartment was examined and muscle belly appeared red and beefy at this time. However, fascia later had been removed due to infection to the area so the site is till guarded at this time. No senior security analyst like fluid was encountered today. No fluctuance was noted to surrounding leg or calf region. The redness and swelling to the area is also noted to improve from previous examinations. Warmth has improved from previous examination. The right hallux amputation site is noted to have sutures and is healing well at this time with no redness swelling or increased warmth noted. Minimal drainage from antibiotic is noted from the amputation site. A: Necrotizing fasciitis, right lower extremity s/p fasciotomies Diabetes, uncontrolled Hx of osteomyelitis to right hallux site P: - Patient is still a high risk for limb loss to the right leg. Her healing is guarded at this time. - She does not require another washout at this time - I did apply her home wound vac today, but patient will need to come to the ED for dressing changes. The orders were called in by my office on 04/16/25 for 3 day a week dressing changes along with her IV abx administration. - Patient will be NWB - Pain prescription was placed in patients chart - Did discuss further surgery with the patient as well as skin grafting if she continues to heal - Patient to follow up this coming week at our office, asked for her to call our office for the appointment Please contact with any questions Dr. Tosin Coon
[2025-04-17] MEDS: K-DUR TAB 20 MEQ PO SCH (09:19)
[2025-04-17] MEDS: MAG-OX TAB PO SCH (09:20)
--- NOTE | 2025-04-17 16:02 | NOTE.SOAP ---
Soap Note Note for Day of Date of Exam: 04/17/25 Subjective Data Subjective Data: Patient seen for daily rounds. No acute events overnight. Podiatry reports she is stable for discharge. Plan is for Saturday to arrange for outpatient wound care, wound VAC changes, and IV antibiotics. Objective Data Objective Data: Well-developed, well-nourished female in no acute distress. Head NCAT with hearing grossly normal. Heart regular rate and rhythm. Wound VAC in place on the right lower extremity with clean and dry dressing. Assessment Assessment: Necrotizing fasciitis of the right lower extremity Morbid obesity Anemia of chronic disease Type 2 diabetes with hyperglycemia Plan Plan: Continue wound care, continue IV antibiotics, continue current medications.
[2025-04-17] MEDS: BUTT CREAM (COMPOUND) TOP PRN (22:01)
[2025-04-18 06:37] LABS: MEAN PLATELET VOLUME 7.7 fL (7.4-11.0); RED CELL DISTRIBUTION WIDTH 14.9 % (11.6-16.5)
[2025-04-18 07:04] LABS: COR CA(FOR HYPOALB) 9.1 mg/dL (8.5-10.1); COR NA(FOR HYPERGLY) 145 mmol/L (136-145); CREATININE 0.63 mg/dL (0.55-1.02); eGFR NON BLACK RACES > 60 (>60)
[2025-04-18] MEDS: NS + KCL 20 MEQ/L 1,000 ML with MAGNESIUM SULFATE 50% INJ VIAL 1 G IV SCH (09:52)
--- NOTE | 2025-04-18 15:04 | NOTE.SOAP ---
Soap Note Note for Day of Date of Exam: 04/18/25 Subjective Data Subjective Data: Patient seen for daily rounds. Currently sleeping comfortably in bed. No acute events but blood pressure remains elevated. Objective Data Objective Data: Well-developed, well-nourished female in no acute distress. Resting company in bed. Heart regular rate and rhythm. Lungs are clear. Assessment Assessment: Necrotizing fasciitis of the right lower extremity Morbid obesity Anemia of chronic disease Type 2 diabetes with hyperglycemia Plan Plan: Continue wound care and antibiotics. Add on spironolactone 25 daily.
[2025-04-18] MEDS: ALDACTONE TAB 25 MG PO SCH (16:51)
[2025-04-18] MEDS: CATAPRES TAB 0.1 MG PO ONE (20:48)
[2025-04-19 05:06] VITALS: RESP 18; O2SAT 100
[2025-04-19 06:03] LABS: MEAN PLATELET VOLUME 8.0 fL (7.4-11.0); RED CELL DISTRIBUTION WIDTH 14.9 % (11.6-16.5)
[2025-04-19 06:12] LABS: COR CA(FOR HYPOALB) 9.1 mg/dL (8.5-10.1); COR NA(FOR HYPERGLY) 146 mmol/L (136-145); CREATININE 0.72 mg/dL (0.55-1.02); eGFR NON BLACK RACES > 60 (>60)
[2025-04-19] MEDS ORDERED: CONSULT PHARMACY - POTASSIUM & MAGNESIUM XX SCH (07:00)
[2025-04-19] MEDS: K-DUR TAB 20 MEQ PO SCH (08:15)
[2025-04-19] MEDS: MAG-OX TAB PO SCH (08:16)
[2025-04-19] MEDS ORDERED: PROCRIT or EPOGEN VIAL 10,000 UNITS SC SCH (09:00)
[2025-04-19 11:01] VITALS: BP 170/88; PULSE 85; TEMP 98.2
--- NOTE | 2025-04-19 11:27 | MD.NOTE ---
Provider Note Note Note: S: Patient was seen and examined at bedside. Patient is doing better today and is ready to go home. O: Right leg was examined. Proximal and distal incision sites are closed and intact. About 16 cm of incision site is open. Anterior compartment was examined and muscle belly appeared red and beefy at this time. However, fascia later had been removed due to infection to the area so the site is till guarded at this time- some necrotic tissue appreciated. No crankshaft balancer like fluid was encountered once again today. No fluctuance was noted to surrounding leg or calf region. The redness and swelling to the area is also noted to improve from previous examinations. Warmth continues to improve to the right leg. Patient is able to dorsiflex the right leg and is not experiencing any pain or numbness. The right hallux amputation site is noted to have sutures and is healing well at this time with no redness swelling or increased warmth noted. Minimal drainage from antibiotic is noted from the amputation site. A: Necrotizing fasciitis, right lower extremity s/p fasciotomies Diabetes, uncontrolled Hx of osteomyelitis to right hallux site P: - Patient is still a high risk for limb loss to the right leg. Her healing is guarded at this time. - She does not require another washout at this time - I did reapply her home wound vac today, but patient will need to come to the ED for dressing changes. The orders were called in by my office on 04/16/25 for 3 day a week dressing changes along with her IV abx administration, as well as given to the charge nurse this past Saturday - Patient will be NWB - Pain prescription was placed in patients chart - Did discuss further surgery with the patient as well as skin grafting if she continues to heal - Patient to follow up this coming week at our office, patient states she does have a follow up appointment in place this week Please contact with any questions Dr. Tosin Coon
== END 2025-04-19 12:15 | disposition home or self-care (01) | DRG 570 ==
LOC: ER 16:23 → MED/SURG 16:23
PROVIDERS: ADMIT Obstetrics & Gynecology Obstetrics; ATTEND Obstetrics & Gynecology Obstetrics
PROC: DEBRIDE (2025-04-09 21:15)
PROC: [UNRECOGNIZED PROCEDURE] (2025-04-12 07:35)
DX: B96.1 Klebsiella pneumoniae [K. pneumoniae] as the cause of diseases classified elsewhere; Z16.12 Extended spectrum beta lactamase (ESBL) resistance; E83.51 Hypocalcemia; Z59.868 Other specified financial insecurity; R26.81 Unsteadiness on feet; Z79.4 Long term (current) use of insulin; I10 Essential (primary) hypertension; R94.31 Abnormal electrocardiogram [ECG] [EKG]; B96.4 Proteus (mirabilis) (morganii) as the cause of diseases classified elsewhere; Z79.899 Other long term (current) drug therapy; R27.8 Other lack of coordination; E78.5 Hyperlipidemia, unspecified; R07.89 Other chest pain; L03.115 Cellulitis of right lower limb; E87.1 Hypo-osmolality and hyponatremia; R79.89 Other specified abnormal findings of blood chemistry; M72.6 Necrotizing fasciitis; D72.828 Other elevated white blood cell count; M62.81 Muscle weakness (generalized); M79.661 Pain in right lower leg; Z16.29 Resistance to other single specified antibiotic; Z89.411 Acquired absence of right great toe; Z16.23 Resistance to quinolones and fluoroquinolones; E11.65 Type 2 diabetes mellitus with hyperglycemia; E83.42 Hypomagnesemia; D64.89 Other specified anemias; B96.29 Other Escherichia coli [E. coli] as the cause of diseases classified elsewhere; B95.61 Methicillin susceptible Staphylococcus aureus infection as the cause of diseases classified elsewhere